=== PATIENT | male | born 1950 | race Caucasian/White ===

== ENCOUNTER 2017-06-17 10:30 | Inpatient (IN) | payer OTHER ==
[~2017-06-17] VITALS: Ht 175.3 cm; Wt 83.7 kg
[2017-06-17] VITALS (9 sets, daily range): BP systolic 144–211; BP diastolic 64–104; PULSE 48–78; RESP 14–17; TEMP 97.8–98.7; O2SAT 95–99
[~2017-06-17 10:30] MED LIST: LISI-363 PO; PRED-1 PO; PROB1TAB; ULTR50TA PO
[2017-06-17] MEDS ORDERED: LISI40TA PO (11:30)
[2017-06-17] MEDS ORDERED: FLUT50SP EACH NARE (11:30)
[2017-06-17] MEDS ORDERED: BYST10TA2 PO (11:30)
[2017-06-17] MEDS ORDERED: DOXY100C PO (11:30)
[2017-06-17] MEDS ORDERED: AMLO2.5T PO (11:30)
[2017-06-17] MEDS ORDERED: SPIR25TA PO (11:30)
[2017-06-17] MEDS ORDERED: SODIUM CHLOR 0.9% 1000 ML INJ 1,000 ML IV STA (11:34)
[2017-06-17] MEDS ORDERED: MECLIZINE HCL 25 MG TAB PO ONE (11:45)
[2017-06-17] MEDS ORDERED: ONDANSETRON HCL 4 MG/2 ML VIAL IV PUSH ONE (11:45)
--- NOTE | 2017-06-17 11:47 | PD ---
HPI Chief Complaint: Dizziness Time Seen by Provider: 11:23 Travel History International Travel<30 days: No Contact w/Intl Traveler<30days: No Traveled to known affect area: No History of Present Illness HPI This 67-year-old male is complaining of vertigo. He's been having vertigo for about 4 weeks but is getting progressively worse. The vertigo is aggravated by movement of the head by standing. She says the last couple of days has been quite severe. He's having a headache behind both of his eyes. He says he is unable to stand without falling over. He has a history of resting cancer and has had a radical prostatectomy. He says he has had urinary tract infections since then. He has had multiple surgeries including multiple orthopedic procedures as well as appendectomy and hernia. He was diagnosed with an ear infection and has been on doxycycline for 2 weeks. PFSH Past Medical History Cardiovascular Problems: Yes Hypertension: Yes Tetanus Vaccination: Unknown Influenza Vaccination: Yes Past Surgical History Genitourinary Surgery: Yes (Prostatectomy ) Social History Alcohol Use: No Tobacco Use: No Substance Use: No Allergies-Medications (Allergen,Severity, Reaction): Coded Allergies: Sulfa (Sulfonamide Antibiotics) (Unverified Allergy, Unknown, Rash, ) amoxicillin (Unverified Allergy, Unknown, Anaphylaxis, 06/17/17) aspirin (Unverified Allergy, Unknown, Rash, 06/17/17) ciprofloxacin (Unverified Allergy, Unknown, Anaphylaxis, 06/17/17) hydrocodone (Unverified Allergy, Unknown, Rash, 06/17/17) ibuprofen (Unverified Allergy, Unknown, Rash, 06/17/17) naproxen (Unverified Allergy, Unknown, Rash, 06/17/17) oxycodone (Unverified Allergy, Unknown, Rash, 06/17/17) penicillin G (Unverified Allergy, Unknown, Anaphylaxis, 06/17/17) sulfamethoxazole (Unverified Allergy, Unknown, Rash, 06/17/17) trimethoprim (Unverified Allergy, Unknown, Rash, 06/17/17) Reported Meds & Prescriptions Reported Meds & Active Scripts Active Reported Fluticasone Nasal [place] 50 Mcg/Act Naspr 50 Mcg EACH NARE BID 50 mcg/spray Amlodipine (Amlodipine Besylate) 2.5 Mg Tab 2.5 Mg PO BID Spironolactone 25 Mg Tab 25 Mg PO DAILY Doxycycline Hyclate 100 Mg Cap 100 Mg PO BID Lisinopril 40 Mg Tab 40 Mg PO BID Bystolic (Nebivolol) 10 Mg Tab 10 Mg PO HS Review of Systems General / Constitutional: No: Fever, Chills Eyes: No: Diploplia HENT: Positive: Headaches, Lightheadedness, No: Nosebleed Cardiovascular: No: Chest Pain or Discomfort, Palpitations Respiratory: No: Cough, Shortness of Breath Gastrointestinal: Positive: Nausea, Vomiting Genitourinary: No: Urgency, Frequency Musculoskeletal: No: Myalgias, Arthralgias Skin: No Rash Neurologic: Positive: Weakness, Dizziness Endocrine: No: Heat Intolerance Hematologic/Lymphatic: No: Easy Bruising Physical Exam Narrative GENERAL: Well-developed male. He is uncomfortable with his vertigo SKIN: Focused skin assessment warm/dry. HEAD: Atraumatic. Normocephalic. EYES: Pupils equal and round. No scleral icterus. No injection or drainage. ENT: No nasal bleeding or discharge. Mucous membranes pink and moist. TMs are negative NECK: Trachea midline. No JVD. CARDIOVASCULAR: Regular rate and rhythm. No murmur appreciated. RESPIRATORY: No accessory muscle use. Clear to auscultation. Breath sounds equal bilaterally. GASTROINTESTINAL: Abdomen soft, non-tender, nondistended. Hepatic and splenic margins not palpable. MUSCULOSKELETAL: No obvious deformities. No clubbing. No cyanosis. No edema. NEUROLOGICAL: Awake and alert. No obvious cranial nerve deficits. Motor grossly within normal limits. Normal speech. The patient is quite unsteady when asked to stand PSYCHIATRIC: Appropriate mood and affect; insight and judgment normal. Data Data Last Documented VS Vital Signs Date Time Temp Pulse Resp B/P (MAP) Pulse Ox O2 Delivery O2 Flow Rate FiO2 06/17/17 14:39 60 197/104 (135) 99 06/17/17 13:35 16 Room Air 06/17/17 10:58 97.8 Orders Orders Electrocardiogram (06/17/17 11:34) Complete Blood Count With Diff (06/17/17 11:34) Comprehensive Metabolic Panel (06/17/17 11:34) Prothrombin Time / Inr (Pt) (06/17/17 11:34) Act Partial Throm Time (Ptt) (06/17/17 11:34) Urinalysis - C+S If Indicated (06/17/17 11:34) Sodium Chlor 0.9% 1000 Ml Inj (Ns 1000 M (06/17/17 11:34) Ondansetron Inj (Zofran Inj) (06/17/17 11:45) Meclizine (Antivert) (06/17/17 11:45) Troponin I (06/17/17 11:52) Urine Culture (06/17/17 11:45) Mri Brain W&W/O Contrast (06/17/17 11:34) Gadodiamide Pf Inj (Omniscan Pf Inj) (06/17/17 13:20) Lisinopril (Prinivil) (06/17/17 14:00) Amlodipine (Norvasc) (06/17/17 14:00) Nebivolol (Bystolic) (06/17/17 14:00) Consult Neurosurgery (06/17/17 ) (Hub Use Only)Inp Phy Cons/Ref (06/17/17 ) Dexamethasone Inj (Decadron Inj) (06/17/17 16:00) Admit Order (Ed Use Only) (06/17/17 15:54) Labs Laboratory Tests Test 06/17/17 11:45 White Blood Count 11.7 TH/MM3 Red Blood Count 5.11 MIL/MM3 Hemoglobin 15.1 GM/DL Hematocrit 46.2 % Mean Corpuscular Volume 90.4 FL Mean Corpuscular Hemoglobin 29.6 PG Mean Corpuscular Hemoglobin Concent 32.7 % Red Cell Distribution Width 13.1 % Platelet Count 262 TH/MM3 Mean Platelet Volume 8.4 FL Neutrophils (%) (Auto) 75.6 % Lymphocytes (%) (Auto) 18.6 % Monocytes (%) (Auto) 4.9 % Eosinophils (%) (Auto) 0.7 % Basophils (%) (Auto) 0.2 % Neutrophils # (Auto) 8.8 TH/MM3 Lymphocytes # (Auto) 2.2 TH/MM3 Monocytes # (Auto) 0.6 TH/MM3 Eosinophils # (Auto) 0.1 TH/MM3 Basophils # (Auto) 0.0 TH/MM3 CBC Comment DIFF FINAL Differential Comment Prothrombin Time 10.5 SEC Prothromb Time International Ratio 1.0 RATIO Activated Partial Thromboplast Time 25.7 SEC Urine Collection Type CLEAN CATCH Urine Color YELLOW Urine Turbidity CLEAR Urine pH 6.0 Urine Specific [place] 1.026 Urine Protein 100 mg/dL Urine Glucose (UA) NEG mg/dL Urine Ketones NEG mg/dL Urine Occult Blood TRACE Urine Nitrite NEG Urine Bilirubin NEG Urine Leukocyte Esterase TRACE Urine RBC 0-3 /hpf Urine WBC 15-19 /hpf Urine Squamous Epithelial Cells 0-5 /hpf Microscopic Urinalysis Comment CULTURE INDICATED Urine Collection Time 11:45 Blood Urea Nitrogen 18 MG/DL Creatinine 1.10 MG/DL Random Glucose 188 MG/DL Total Protein 8.3 GM/DL Albumin 4.1 GM/DL Calcium Level 9.6 MG/DL Alkaline Phosphatase 81 U/L Aspartate Amino Transf (AST/SGOT) 19 U/L Alanine Aminotransferase (ALT/SGPT) 36 U/L Total Bilirubin 0.8 MG/DL Sodium Level 136 MEQ/L Potassium Level 4.3 MEQ/L Chloride Level 98 MEQ/L Carbon Dioxide Level 30.1 MEQ/L Anion Gap 8 MEQ/L Estimat Glomerular Filtration Rate 67 ML/MIN Troponin I 0.02 NG/ML [facility] Medical Decision Making Medical Screen Exam Complete: Yes Emergency Medical Condition: Yes Medical Record Reviewed: Yes Differential Diagnosis Differential includes peripheral vertigo,CVA Tumor Narrative Course MRI of the brain shows a mass measuring 1.6 x 3.3 x 2.4 cm which fills the fourth ventricles. Differential includes ependymoma versus choroid plexus papilloma/carcinoma. I have discussed the case with Dr. Hunter. He recommends Decadron 4 mg every 6, transfer to [place] unit for close observation and consult to him. The patient blood pressure has been elevated. I have not taken his medication at home this morning because of nausea but has been given it here. Diagnosis Primary Impression: Brain tumor Additional Impression: intractable vertigO Admitting Information Admitting Physician Requests: Admit Seven Garces MD Jun 17, 2017 11:47
[2017-06-17 11:58] LABS: BLOOD, URINE TRACE (NEG); GLUCOSE,URINE NEG (NEG); KETONE, URINE NEG (NEG); NITRITE,URINE NEG (NEG)
[2017-06-17 12:02] LABS: AUTOMATED NEUTROPHIL # 8.8 TH/MM3 (1.8-7.7); BASOPHIL % 0.2 % (0.0-2.0); EOSINOPHIL # 0.1 TH/MM3 (0-0.4); EOSINOPHIL % 0.7 % (0.0-4.0); HEMATOCRIT 46.2 % (39.0-51.0); HEMO FLAGS DIFF FINAL; LYMPH % 18.6 % (9.0-44.0); LYMPHOCYTE # 2.2 TH/MM3 (1.0-4.8); MEAN CELL VOLUME 90.4 FL (80.0-100.0); MEAN CORPUSCULAR HEMOGLOBIN 29.6 PG (27.0-34.0); MEAN CORPUSCULAR HGB CONC 32.7 % (32.0-36.0); MONO % 4.9 % (0.0-8.0); NEUT % 75.6 % (16.0-70.0); PLATELET COUNT 262 TH/MM3 (150-450); RED BLOOD COUNT 5.11 MIL/MM3 (4.50-5.90); RED CELL DISTRIBUTION WIDTH 13.1 % (11.6-17.2); WHITE BLOOD COUNT 11.7 TH/MM3 (4.0-11.0)
[2017-06-17 12:06] LABS: CHLORIDE 98 MEQ/L (98-107); POTASSIUM 4.3 MEQ/L (3.5-5.1); SODIUM (NA) 136 MEQ/L (136-145)
[2017-06-17 12:10] LABS: APTT (PATIENT) 25.7 SEC (24.3-30.1); PROTHROMBIN TIME - PATIENT 10.5 SEC (9.8-11.6)
[2017-06-17 12:13] LABS: ANION GAP 8 MEQ/L (5-15); BICARBONATE 30.1 MEQ/L (21.0-32.0); BLOOD UREA NITROGEN 18 MG/DL (7-18); METHOD OF COLLECTION CLEAN CATCH
[2017-06-17 12:14] LABS: RBC, URINE 0-3 /hpf (0-3); SQUAMOUS EPITHELIAL CELL URINE 0-5 /hpf (0-5); URINE COLOR YELLOW (YELLW/STRAW); WBC, URINE 15-19 /hpf (0-5)
[2017-06-17 12:16] LABS: ALT (GPT) 36 U/L (12-78); AST (GOT) 19 U/L (15-37); COMMENT (UR) CULTURE INDICATED; CULTURE IF INDICATED CULTURE INDICATED; GLOMERULAR FILTRATION RATE 67 ML/MIN (>89)
[2017-06-17 12:17] LABS: TOTAL BILIRUBIN ADULT 0.8 MG/DL (0.2-1.0)
[2017-06-17 12:19] LABS: ALKALINE PHOSPHATASE 81 U/L (45-117)
[2017-06-17] MEDS ORDERED: GADODIAMIDE PF 287 MG/ML 5 ML VIAL (for RAD MRI) IVCONTRAST ONE (13:20)
[2017-06-17] MEDS ORDERED: NEBIVOLOL 10 MG TAB PO ONE (14:00)
[2017-06-17] MEDS ORDERED: amLODIPine BESYLATE 5 MG TAB PO ONE (14:00)
[2017-06-17] MEDS ORDERED: LISINOPRIL 20 MG TAB PO SCH (14:00)
[2017-06-17] MEDS ORDERED: NEBIVOLOL 2.5 MG TAB PO ONE (14:00)
--- NOTE | 2017-06-17 15:18 | RADRPT ---
EXAM DATE/TIME: 06/17/2017 13:16 [facility] COMPARISON: No previous studies available for comparison. INDICATIONS : CVA. Vertigo. Patient states that he has an ear infection. CONTRAST: 15 cc Omniscan (gadodiamide) IV MEDICAL HISTORY : Hypertension. Carcinoma, prostate. SURGICAL HISTORY : Prostatectomy. Appendectomy. Umbilical hernia repair. Elbow surgery. ENCOUNTER: Initial ACUITY: 1 day PAIN SCORE: 5/10 LOCATION: head. TECHNIQUE: Multiplanar, multisequence MRI of the brain was performed both prior to and following the administrat ion of paramagnetic contrast. FINDINGS: Imaging through the posterior fossa demonstrates a heterogeneously enhancing mass which appears to be arising from the ependyma of the fourth ventricle. It is possible but less likely it arises from suzan mis. There is some evidence of hemorrhage within this on the heavily T2-weighted images. The lesion m easures approximately 2.5 x 2.5 x 1.7 cm. This extends forward and fills much of the fourth ventricle . The fourth ventricle is enlarged. There is no hydrocephalus. The primary differential consideration s would include ependymoma/subependymoma versus choroid plexus papilloma/carcinoma. Diffusion restricted is provided. No findings to indicate acute cortical infarction are present. No significant white matter signal abnormalities are identified. No significant extra-axial fluid col lections are seen. The visualized portion of sinus demonstrates a small amount of fluid within the frontal sinus and pos terior aspect of the right maxillary sinus but is otherwise clear. CONCLUSION: 1. There is a mass measuring 1.6 x 3.3 x 2.4 cm which fills the fourth ventricle. This is isointense on the T1-weighted images. There is heterogeneous enhancement. Primary differential considerations in clude ependymoma/subependymoma versus choroid plexus papilloma/carcinoma. Jak Linares MD on June 17, 2017 at 13:43 Board Certified Radiologist. This report was verified electronically.
[2017-06-17] MEDS ORDERED: LACTULOSE SYRUP 20 GM/30 ML CUP PO PRN (16:00)
[2017-06-17] MEDS ORDERED: MISCELLANEOUS NURSING INFORMATION XX SCH (16:00)
[2017-06-17] MEDS ORDERED: RESP: ALBUTEROL 2.5 MG/IPRATROPIUM 0.5 MG NEB (PRN) INH (16:00)
[2017-06-17] MEDS ORDERED: BISACODYL 10 MG SUPP RECTAL PRN (16:00)
[2017-06-17] MEDS ORDERED: SENNOSIDES 8.6 MG TAB PO PRN (16:00)
[2017-06-17] MEDS ORDERED: CHLORHEXIDINE GLUCONATE 2 % 1 PACK (2 CLOTHS) TOP PRN (16:00)
[2017-06-17] MEDS ORDERED: MAGNESIUM HYDROXIDE SUSP 30 ML CUP PO PRN (16:00)
[2017-06-17] MEDS ORDERED: DEXAMETHASONE SOD PHOS 4 MG/ML VIAL IV PUSH ONE ×2 (16:00→16:30)
[2017-06-17] MEDS ORDERED: SODIUM CHLORIDE 0.9% FLUSH 10 ML FLUSH IV FLUSH PRN (16:00)
[2017-06-17] MEDS ORDERED: ONDANSETRON HCL 4 MG/2 ML VIAL IV PUSH PRN (16:00)
[2017-06-17] MEDS ORDERED: hydrALAZINE HCL 20 MG/ML VIAL IV PUSH ONE ×2 (16:15→16:30)
[2017-06-17] MEDS ORDERED: hydrALAZINE HCL 20 MG/ML VIAL IV PUSH PRN (16:15)
[2017-06-17] MEDS ORDERED: PILL SPLITTER OTHER PRN (16:30)
--- NOTE | 2017-06-17 17:07 | RADRPT ---
EXAM DATE/TIME: 06/17/2017 17:00 [facility] COMPARISON: No previous studies available for comparison. INDICATIONS : Pre-op. Evaluate for pneumothorax, pneumonia, or other communicable disease. MEDICAL HISTORY : Hypertension. SURGICAL HISTORY : None. ENCOUNTER: Initial ACUITY: 1 day PAIN SCORE: 0/10 LOCATION: Bilateral chest FINDINGS: A single view of the chest demonstrates the lungs to be symmetrically aerated without evidence of mas s, infiltrate or effusion. There is mild atelectasis and/or scarring at the lung bases. The cardiomed iastinal contours are unremarkable. Osseous structures are intact. CONCLUSION: No acute disease. Hamilton Stacy MD on June 17, 2017 at 17:06 Board Certified Radiologist. This report was verified electronically.
[2017-06-17] MEDS: SODIUM CHLOR 0.9% 1000 ML INJ 1,000 ML IV SCH (17:08)
[2017-06-17] MEDS ORDERED: NITROGLYCERIN 2% OINT 1 GM PACKET TOPICAL PRN (18:30)
[2017-06-17] MEDS ORDERED: CLEVIDIPINE INJ 50 ML IV PRN ×2 (18:30→19:45)
[2017-06-17] MEDS: ACETAMINOPHEN 325 MG TAB PO PRN (18:30)
--- NOTE | 2017-06-17 18:34 | HHI.HP ---
[facility] Service Critical Care Medicine Primary Care Physician Yovany Oconnor, DO Admission Diagnosis INTRAVENTRICULAR MASS Diagnosis: (1) Allergic rhinitis Diagnosis: Principal (2) Cystitis Diagnosis: Principal (3) Hyperglycemia Diagnosis: Principal (4) Leukocytosis Diagnosis: Principal (5) Hypertension Diagnosis: Principal (6) Severe enlargement of fourth ventricle Diagnosis: Principal (7) Brain tumor Diagnosis: Principal Chief Complaint: Dizziness Travel History International Travel<30 Days: No Contact w/Intl Traveler <30 Da: No Traveled to Known Affected Are: No History of Present Illness 67-year-old male . Date of admission 06/17/2017. Past medical history includes hypertension. His presenting complaint the hospital was vertigo. He' s been having vertigo for about 4 weeks but is getting progressively worse. The vertigo is aggravated by movement of the head by standing.. Symptomatology occurring worse last couple of days has been quite severe. He's having a headache behind both of his eyes. He says he is unable to stand without falling over. He has a history of prostate cancer and has had a radical prostatectomy. He says he has had urinary tract infections since then. He has had multiple surgeries including multiple orthopedic procedures as well as appendectomy and hernia. He was diagnosed with an ear infection and has been on doxycycline for 2 weeks. 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 Dr. Hunter was contacted. Recommended dexamethasone 4 mg IV every 6 hours with surgical evaluation in AM. Patient remained quite hypertensive. Was started on a [place] proximal drip. Patient pointed diffuse headache [address] brain revealed small focal hemorrhagic component was left 9 x 15 mm. Review of Systems Constitutional: COMPLAINS OF: Fatigue, DENIES: Fever, Weight gain, Weight loss Endocrine: DENIES: Polydipsia, Polyuria Eyes: COMPLAINS OF: Blurred vision, Double Vision Ears, nose, mouth, throat: COMPLAINS OF: Vertigo, DENIES: Tinnitus, Hearing loss Respiratory: DENIES: Cough Cardiovascular: DENIES: Chest pain Gastrointestinal: DENIES: Abdominal pain, Constipation Genitourinary: DENIES: Nocturia Musculoskeletal: DENIES: Joint pain Integumentary: DENIES: Abnormal pigmentation Hematologic/lymphatic: DENIES: Bruising Immunologic/allergic: DENIES: Eczema Neurologic: COMPLAINS OF: Abnormal gait, Headache, Seizures, DENIES: Localized weakness Psychiatric: COMPLAINS OF: Anxiety, Confusion, DENIES: Depression Past Family Social History Allergies: Coded Allergies: Sulfa (Sulfonamide Antibiotics) (Unverified Allergy, Unknown, Rash, ) amoxicillin (Unverified Allergy, Unknown, Anaphylaxis, 06/17/17) aspirin (Unverified Allergy, Unknown, Rash, 06/17/17) ciprofloxacin (Unverified Allergy, Unknown, Anaphylaxis, 06/17/17) hydrocodone (Unverified Allergy, Unknown, Rash, 06/17/17) ibuprofen (Unverified Allergy, Unknown, Rash, 06/17/17) naproxen (Unverified Allergy, Unknown, Rash, 06/17/17) oxycodone (Unverified Allergy, Unknown, Rash, 06/17/17) penicillin G (Unverified Allergy, Unknown, Anaphylaxis, 06/17/17) sulfamethoxazole (Unverified Allergy, Unknown, Rash, 06/17/17) trimethoprim (Unverified Allergy, Unknown, Rash, 06/17/17) Past Medical History Hypertension Prostate cancer Allergic rhinitis Past Surgical History Prostatectomy Appendectomy Hernia repair Reported Medications Fluticasone Nasal [place] 50 Mcg/Act Naspr 50 Mcg EACH NARE BID 50 mcg/spray Amlodipine (Amlodipine Besylate) 2.5 Mg Tab 2.5 Mg PO BID Spironolactone 25 Mg Tab 25 Mg PO DAILY Doxycycline Hyclate 100 Mg Cap 100 Mg PO BID Lisinopril 40 Mg Tab 40 Mg PO BID Bystolic (Nebivolol) 10 Mg Tab 10 Mg PO HS Active Ordered Medications Reviewed in EMR Family History Adopted. Grandmother with cancer. Positive rheumatoid arthritis Social History Denies tobacco, alcohol or IV drug use Physical Exam Vital Signs Vital Signs Date Time Temp Pulse Resp B/P (MAP) Pulse Ox O2 Delivery O2 Flow Rate FiO2 06/17/17 16:00 48 14 211/101 (137) 98 Room Air 06/17/17 14:39 60 197/104 (135) 99 06/17/17 13:35 52 16 190/101 (130) 97 Room Air 06/17/17 10:58 97.8 53 17 207/104 (138) 95 Physical Exam GENERAL: 67-year-old male, critically ill currently resting in bed SKIN: Warm and dry. HEAD: Atraumatic. Normocephalic. EYES: Pupils equal and round about 2 mCi positive nystagmus.. No scleral icterus. No injection or drainage. ENT: No nasal bleeding or discharge. Mucous membranes pink and moist. NECK: Trachea midline. No JVD. CARDIOVASCULAR: bradyCardic, RR. S1, S2 no S4. RESPIRATORY: No accessory muscle use. Clear to auscultation. Breath sounds equal bilaterally. GASTROINTESTINAL: Abdomen soft, non-tender, nondistended. I [place] bowel sounds MUSCULOSKELETAL: Extremities without drift and peripheral edema. No obvious deformities. NEUROLOGICAL: Awake and alert. No obvious cranial nerve deficits. Motor grossly within normal limits. Five out of 5 muscle strength in the arms and legs. Normal speech. Laboratory Laboratory Tests Test 06/17/17 11:45 White Blood Count 11.7 Red Blood Count 5.11 Hemoglobin 15.1 Hematocrit 46.2 Mean Corpuscular Volume 90.4 Mean Corpuscular Hemoglobin 29.6 Mean Corpuscular Hemoglobin Concent 32.7 Red Cell Distribution Width 13.1 Platelet Count 262 Mean Platelet Volume 8.4 Neutrophils (%) (Auto) 75.6 Lymphocytes (%) (Auto) 18.6 Monocytes (%) (Auto) 4.9 Eosinophils (%) (Auto) 0.7 Basophils (%) (Auto) 0.2 Neutrophils # (Auto) 8.8 Lymphocytes # (Auto) 2.2 Monocytes # (Auto) 0.6 Eosinophils # (Auto) 0.1 Basophils # (Auto) 0.0 CBC Comment DIFF FINAL Differential Comment Prothrombin Time 10.5 Prothromb Time International Ratio 1.0 Activated Partial Thromboplast Time 25.7 Urine Collection Type CLEAN CATCH Urine Color YELLOW Urine Turbidity CLEAR Urine pH 6.0 Urine Specific [place] 1.026 Urine Protein 100 Urine Glucose (UA) NEG Urine Ketones NEG Urine Occult Blood TRACE Urine Nitrite NEG Urine Bilirubin NEG Urine Leukocyte Esterase TRACE Urine RBC 0-3 Urine WBC 15-19 Urine Squamous Epithelial Cells 0-5 Microscopic Urinalysis Comment CULTURE INDICATED Urine Collection Time 11:45 Blood Urea Nitrogen 18 Creatinine 1.10 Random Glucose 188 Total Protein 8.3 Albumin 4.1 Calcium Level 9.6 Alkaline Phosphatase 81 Aspartate Amino Transf (AST/SGOT) 19 Alanine Aminotransferase (ALT/SGPT) 36 Total Bilirubin 0.8 Sodium Level 136 Potassium Level 4.3 Chloride Level 98 Carbon Dioxide Level 30.1 Anion Gap 8 Estimat Glomerular Filtration Rate 67 Troponin I 0.02 Date/Time Source Procedure Growth Status 06/17/17 11:45 Urine Clean Catch Urine Culture Pending Received Result Diagram: 06/17/17 1145 06/17/17 1145 Imaging Last Impressions Brain MRI 06/17/17 1134 Signed Impressions: Service Date/Time: Saturday, June 17, 2017 13:16 - CONCLUSION: 1. There is a mass measuring 1.6 x 3.3 x 2.4 cm which fills the fourth ventricle. This is isointense on the T1-weighted images. There is heterogeneous enhancement. Primary differential considerations include ependymoma/subependymoma versus choroid plexus papilloma/carcinoma. Jak Linares MD Chest X-Ray 06/17/17 0000 Signed Impressions: Service Date/Time: Saturday, June 17, 2017 17:00 - CONCLUSION: No acute disease. MD Esteban Schafer VTE Risk Assessment Caprini VTE Risk Assessment: Mod/High Risk (score >= 2) Caprini Risk Assessment Model Point Value = 1 Point Value = 2 Point Value = 3 Point Value = 5 Age 41-60 Minor surgery BMI > 25 kg/m2 Swollen legs Varicose veins or History of unexplained or recurrent spontaneous Oral contraceptives or hormone replacement Sepsis (< 1 month) Serious lung disease, including pneumonia (< 1 month) Abnormal pulmonary function Acute myocardial infarction Congestive heart failure (< 1 month) History of inflammatory bowel disease Medical patient at bed rest Age 61-74 Arthroscopic surgery Major open surgery (> 45 min) Laparoscopic surgery (> 45 min) Malignancy Confined to bed (> 72 hours) Immobilizing plaster cast Central venous access Age >= 75 History of VTE Family history of VTE Factor V Leiden Prothrombin [id number] Lupus anticoagulant Anticardiolipin antibodies Elevated serum homocysteine Heparin-induced thrombocytopenia Other congenital or acquired thrombophilia Stroke (< 1 month) Elective arthroplasty Hip, pelvis, or leg fracture Acute spinal cord injury (< 1 month) Prophylaxis Regimen Total Risk Factor Score Risk Level Prophylaxis Regimen 0-1 Low Early ambulation 2 Moderate Order ONE of the following: *Sequential Compression Device (SCD) *Heparin 5000 units SQ BID 3-4 Higher Order ONE of the following medications: *Heparin 5000 units SQ TID *Enoxaparin/Lovenox 40 mg SQ daily (WT < 150 kg, CrCl > 30 mL/min) *Enoxaparin/Lovenox 30 mg SQ daily (WT < 150 kg, CrCl > 10-29 mL/min) *Enoxaparin/Lovenox 30 mg SQ BID (WT < 150 kg, CrCl > 30 mL/min) AND/OR *Sequential Compression Device (SCD) 5 or more Highest Order ONE of the following medications: *Heparin 5000 units SQ TID (Preferred with Epidurals) *Enoxaparin/Lovenox 40 mg SQ daily (WT < 150 kg, CrCl > 30 mL/min) *Enoxaparin/Lovenox 30 mg SQ daily (WT < 150 kg, CrCl > 10-29 mL/min) *Enoxaparin/Lovenox 30 mg SQ BID (WT < 150 kg, CrCl > 30 mL/min) AND *Sequential Compression Device (SCD) Assessment and Plan Assessment and Plan Neuro/Psych: Fourth ventricle enlargement/mass Headaches NOS MRI brain 06/17 revealed a 1.6 3.3 x 2.4 cm mass arising from the epidemic. Differential includes ependymoma, choroid plexus papilloma versus other Dr. Hunter/neurosurgery evaluation Dexamethasone 4 mg IV every 6 hours scheduled Plan for intervention in a.m. Acetaminophen 650 mg every 6 hours when necessary pain 1 through 2/fever greater than 100 Hydromorphone 0.2-0.5 mg every 4 hours when necessary pain 3-10. Patient states he has taken this before. Noted allergies to hydrocodone and oxycodone. CT brain revealed 9 x 15 mm focal hemorrhagic component.. See below for blood pressure modification. Discussed with Dr. Hunter. No new plans overnight unless decompensation. CV: Hypertension Home medications include nebivolol 10 mg a night, amlodipine 2.5 mill grams twice a day and lisinopril 40 mg by mouth twice a day. These been continued with holding parameters for nebivolol for heart rate Continued spironolactone 25 mg by mouth twice a day Clevidipine drip to keep systolic blood pressure less than 140 As needed Nitropaste/hydralazine to keep systolic blood pressure was 140 Resp: Nasal cannula to maintain saturations greater than equal to 92% Incentive spirometry while awake As needed albuterol/ipratropium aerosols every 4 hours when necessary dyspnea Chest x-ray 06/17 revealed no acute findings GI: Nothing by mouth after midnight Famotidine for GI prophylaxis Docusate sodium/Senokot 1 tablet twice a day for bowel regimen : Cystitis History of prostate cancer status post prostatectomy Flores catheter not indicated currently Endo: Hyperglycemia Sliding-scale insulin to maintain euglycemia Renal: Creatinine currently within normal limits Monitor urine output Accurate I's and O's Currently normal saline at 84 cc an hour Heme: Leukocytosis Monitor CBC daily. Follow trends. Follow-up on coags ID: Uncomplicated cystitis We'll treat with 3 days aztreonam 1 g IV every 12 hours. Cultures pending Discontinue doxycycline FEN: Replace electrolytes as clinically indicated MSK: PT OT evaluate and treat Access - Utilize peripheral IV. Central line if indicated Prophylaxis - GI - famotidine - DVT - SCD/holding pharmacological prophylaxis for likely surgical intervention within 24 hours Critical Care: Level III admission Code Status Full code Discussed Condition With Patient. . Care plan discussed and all questions answered. Problem Qualifiers (1) Allergic rhinitis: Qualified Codes: J30.9 - Allergic rhinitis, unspecified (2) Leukocytosis: Qualified Codes: D72.829 - Elevated white blood cell count, unspecified (3) Hypertension: Qualified Codes: I10 - Essential (primary) hypertension Nilo Ochoa MD Jun 17, 2017 18:34
[2017-06-17] MEDS ORDERED: HYDROmorphone HCL PF 0.5 MG/0.5 ML SYRINGE IV PUSH PRN ×2 (18:45)
[2017-06-17] MEDS ORDERED: DEXTROSE 50% IN WATER 50 ML VIAL(D50) IV PRN (19:00)
[2017-06-17] MEDS ORDERED: GLUCAGON 1 MG/ML VIAL OTHER PRN ×2 (19:00)
--- NOTE | 2017-06-17 19:41 | RADRPT ---
EXAM DATE/TIME: 06/17/2017 19:19 [facility] COMPARISON: MRI BRAIN W & W/O CONTRAST, June 17, 2017, 13:16. INDICATIONS : Cephalgia for two days, dizziness for three weeks. RADIATION DOSE: 57.45 CTDIvol (mGy) MEDICAL HISTORY : Hypertension. Carcinoma, prostate. SURGICAL HISTORY : Prostatectomy. ENCOUNTER: Initial ACUITY: 2 days PAIN SCALE: 10/10 LOCATION: Bilateral head TECHNIQUE: Multiple contiguous axial images were obtained of the head. Using automated exposure control and adj ustment of the mA and/or kV according to patient size, radiation dose was kept as low as reasonably a chievable to obtain optimal diagnostic quality images. DICOM format image data is available electro nically for review and comparison. FINDINGS: As seen on the MRI of the brain, a mass of the fourth ventricle is again noted. By CT, it is estimate d at approximately 18 x 18 mm in greatest transaxial dimension and not significantly changed from the MRI. There is a focal hemorrhagic component towards the left and measures approximately 9 x 15 mm in size and although better demonstrated on the CT does appear to be present on the MRI. The mass is ce ntrally fills the fourth ventricle posterior to the ashley and with mild mass effect on the cerebellar vermis and the posterior margin of the brainstem. No midline shift. There remains no ventriculomegaly . No evidence of an acute ischemic event. No midline shift. CONCLUSION: Mass of the fourth ventricle again noted as described above and a small hemorrhagic component is appa rent. No significant change from the MRI done previously today including no midline shift or ventricu lomegaly. Joe Smith MD on June 17, 2017 at 19:35 Board Certified Radiologist. This report was verified electronically.
[2017-06-17] MEDS: HYDROmorphone HCL PF 1 MG/ML VIAL IV PRN ×2 (19:48→20:39)
[2017-06-17] MEDS: NEBIVOLOL 10 MG TAB PO SCH (21:00)
[2017-06-17] MEDS: FAMOTIDINE 20 MG TAB PO SCH (21:00)
[2017-06-17] MEDS: INSULIN NovoLIN REGULAR SUPPLEMENTAL SCALE SQ SCH (21:00)
[2017-06-17] MEDS ORDERED: INSULIN ASPART SUPPLEMENTAL SCALE SQ SCH (21:00)
[2017-06-17] MEDS: FLUTICASONE PROPIONATE 50 MCG/ACT 16 GM NASAL SPRAY EACH NARE SCH (21:00)
[2017-06-17] MEDS: AZTREONAM INJ 1,000 MG in SODIUM CHLORIDE 0.9% INJ 100 ML IV SCH (23:44)
[2017-06-17] MEDS: SODIUM CHLORIDE 0.9% FLUSH 10 ML FLUSH IV FLUSH SCH (23:46)
[2017-06-17] MEDS: amLODIPine BESYLATE 5 MG TAB PO SCH (23:47)
[2017-06-17] MEDS: DOCUSATE SODIUM 50 MG/SENNA 8.6 MG TAB PO SCH (23:47)
[2017-06-17] MEDS: LISINOPRIL 20 MG TAB PO SCH (23:49)
[2017-06-17] MEDS: DEXAMETHASONE SOD PHOS 4 MG/ML VIAL IV PUSH SCH (23:52)
[2017-06-18] VITALS (17 sets, daily range): BP systolic 119–158; BP diastolic 79–87; PULSE 52–78; RESP 13–30; TEMP 97.7–98.7; O2SAT 95–99
[2017-06-18] MEDS: SODIUM CHLOR 0.9% 1000 ML INJ 1,000 ML IV SCH ×2 (03:46→14:12)
[2017-06-18] MEDS: CHLORHEXIDINE GLUCONATE 2 % 1 PACK (2 CLOTHS) TOP SCH (04:00)
[2017-06-18] MEDS: HYDROmorphone HCL PF 1 MG/ML VIAL IV PRN ×4 (04:37→15:53)
[2017-06-18] MEDS: DEXAMETHASONE SOD PHOS 4 MG/ML VIAL IV PUSH SCH ×4 (05:13→20:50)
[2017-06-18 05:49] LABS: AUTOMATED NEUTROPHIL # 8.8 TH/MM3 (1.8-7.7); BASOPHIL % 0.1 % (0.0-2.0); HEMO FLAGS DIFF FINAL; LYMPH % 12.8 % (9.0-44.0); LYMPHOCYTE # 1.3 TH/MM3 (1.0-4.8); MEAN CELL VOLUME 91.4 FL (80.0-100.0); MEAN CORPUSCULAR HEMOGLOBIN 30.6 PG (27.0-34.0); MEAN CORPUSCULAR HGB CONC 33.5 % (32.0-36.0); MONO % 2.8 % (0.0-8.0); NEUT % 84.3 % (16.0-70.0); PLATELET COUNT 228 TH/MM3 (150-450); RED BLOOD COUNT 4.59 MIL/MM3 (4.50-5.90); RED CELL DISTRIBUTION WIDTH 13.8 % (11.6-17.2); WHITE BLOOD COUNT 10.4 TH/MM3 (4.0-11.0)
[2017-06-18 06:44] LABS: BLOOD UREA NITROGEN 17 MG/DL (7-18)
[2017-06-18 07:22] LABS: ALKALINE PHOSPHATASE 77 U/L (45-117); ALT (GPT) 34 U/L (12-78); ANION GAP 9 MEQ/L (5-15); AST (GOT) 19 U/L (15-37); BICARBONATE 25.4 MEQ/L (21.0-32.0); CHLORIDE 100 MEQ/L (98-107); GLOMERULAR FILTRATION RATE 84 ML/MIN (>89); POTASSIUM 4.2 MEQ/L (3.5-5.1); SODIUM (NA) 134 MEQ/L (136-145); TOTAL BILIRUBIN ADULT 0.6 MG/DL (0.2-1.0)
[2017-06-18] MEDS: INSULIN NovoLIN REGULAR SUPPLEMENTAL SCALE SQ SCH ×4 (08:00→20:52)
[2017-06-18] MEDS: DOCUSATE SODIUM 50 MG/SENNA 8.6 MG TAB PO SCH ×2 (08:47→20:50)
[2017-06-18] MEDS: amLODIPine BESYLATE 5 MG TAB PO SCH ×2 (08:47→20:52)
[2017-06-18] MEDS: FAMOTIDINE 20 MG TAB PO SCH ×2 (08:47→20:50)
[2017-06-18] MEDS: SPIRONOLACTONE 25 MG TAB PO SCH (08:47)
[2017-06-18] MEDS: AZTREONAM INJ 1,000 MG in SODIUM CHLORIDE 0.9% INJ 100 ML IV SCH ×2 (08:47→20:49)
[2017-06-18] MEDS: LISINOPRIL 20 MG TAB PO SCH ×2 (08:48→20:50)
[2017-06-18] MEDS: FLUTICASONE PROPIONATE 50 MCG/ACT 16 GM NASAL SPRAY EACH NARE SCH ×2 (08:49→20:51)
[2017-06-18] MEDS: SODIUM CHLORIDE 0.9% FLUSH 10 ML FLUSH IV FLUSH SCH ×2 (08:49→20:51)
--- NOTE | 2017-06-18 12:42 | HHI.CCPN ---
Subjective Remarks/Hospital Course 06/17: 67-year-old male . Date of admission 06/17/2017. Past medical history includes hypertension. His presenting complaint the hospital was vertigo. He' s been having vertigo for about 4 weeks but is getting progressively worse. The vertigo is aggravated by movement of the head by standing.. Symptomatology occurring worse last couple of days has been quite severe. He's having a headache behind both of his eyes. He says he is unable to stand without falling over. He has a history of prostate cancer and has had a radical prostatectomy. He says he has had urinary tract infections since then. He has had multiple surgeries including multiple orthopedic procedures as well as appendectomy and hernia. He was diagnosed with an ear infection and has been on doxycycline for 2 weeks. 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 Dr. Hunter was contacted. Recommended dexamethasone 4 mg IV every 6 hours with surgical evaluation in AM. Patient remained quite hypertensive. Was started on a [place] proximal drip. Patient pointed diffuse headache [address] brain revealed small focal hemorrhagic component was left 9 x 15 mm. 06/18: Sitting up in bed. Feels much better today. Still has some headache. Denies any nausea currently. No dizziness if he stays still. Wishes to eat. Blood pressure better controlled. Objective Vital Signs Date Time Temp Pulse Resp B/P (MAP) Pulse Ox O2 Delivery O2 Flow Rate FiO2 06/18/17 10:35 98 21 06/18/17 10:00 52 06/18/17 08:00 98.6 25 158/84 (108) 06/18/17 07:00 Room Air Intake and Output 06/18/17 06/18/17 06/19/17 08:00 16:00 00:00 Intake Total 670 ml 100 ml Output Total 600 ml Balance 70 ml 100 ml Result Diagram: 06/18/17 0434 06/18/17 0434 Imaging Last Impressions Brain MRI 06/17/17 1134 Signed Impressions: Service Date/Time: Saturday, June 17, 2017 13:16 - CONCLUSION: 1. There is a mass measuring 1.6 x 3.3 x 2.4 cm which fills the fourth ventricle. This is isointense on the T1-weighted images. There is heterogeneous enhancement. Primary differential considerations include ependymoma/subependymoma versus choroid plexus papilloma/carcinoma. Jak Linares MD Chest X-Ray 06/17/17 0000 Signed Impressions: Service Date/Time: Saturday, June 17, 2017 17:00 - CONCLUSION: No acute disease. Hamilton Stacy MD Objective Remarks GENERAL: 67-year-old male, critically ill currently resting in bed SKIN: Warm and dry. HEAD: Atraumatic. Normocephalic. EYES: Pupils equal and round about 2 mm, positive nystagmus.. No scleral icterus. No injection or drainage. ENT: No nasal bleeding or discharge. Mucous membranes pink and moist. NECK: Trachea midline. No JVD. CARDIOVASCULAR: bradyCardic, RR. S1, S2 no S4. RESPIRATORY: No accessory muscle use. Clear to auscultation. Breath sounds equal bilaterally. GASTROINTESTINAL: Abdomen soft, non-tender, nondistended. I [place] bowel sounds MUSCULOSKELETAL: Extremities without drift and peripheral edema. No obvious deformities. NEUROLOGICAL: Awake and alert. No obvious cranial nerve deficits. Motor grossly within normal limits. Five out of 5 muscle strength in the arms and legs. Normal speech. Urinary Catheter: Yes Assessment to: Continue Flores insert reason: Measure Accurate Output Vascular Central Line Catheter: Yes Date of Insertion: Jun 18, 2017 Line: Central Venous Catheter Side: Right Location: Internal, Jugular A/P Assessment and Plan Neuro/Psych: Fourth ventricle enlargement/mass Headaches NOS MRI brain 06/17 revealed a 1.6 3.3 x 2.4 cm mass arising from the epidemic. Differential includes ependymoma, choroid plexus papilloma versus other Dr. Hunter/neurosurgery evaluation. Dr. Hunter not planning immediate surgical intervention in view of question of blood around the lesion. Dexamethasone 4 mg IV every 6 hours scheduled. Acetaminophen 650 mg every 6 hours when necessary pain 1 through 2/fever greater than 100 Hydromorphone 0.2-0.5 mg every 4 hours when necessary pain 3-10. Patient states he has taken this before. Noted allergies to hydrocodone and oxycodone. CT brain revealed 9 x 15 mm focal hemorrhagic component.. See below for blood pressure modification. Discussed with Dr. Hunter. No new plans overnight unless decompensation. CV: Hypertension Home medications include nebivolol 10 mg a night, increase amlodipine from 2.5mg to 5 mg twice a day , continue lisinopril 40 mg by mouth twice a day. These been continued with holding parameters for nebivolol for heart rate Continued spironolactone 25 mg by mouth twice a day Off Clevidipine drip. Clonidine when necessary. As needed Nitropaste/hydralazine to keep systolic blood pressure was 140 Resp: Nasal cannula to maintain saturations greater than equal to 92% Incentive spirometry while awake As needed albuterol/ipratropium aerosols every 4 hours when necessary dyspnea Chest x-ray 06/17 revealed no acute findings GI: Advance by mouth for K with neurosurgery. Famotidine for GI prophylaxis Docusate sodium/Senokot 1 tablet twice a day for bowel regimen : Cystitis History of prostate cancer status post prostatectomy Flores catheter not indicated currently Endo: Hyperglycemia Sliding-scale insulin to maintain euglycemia Renal: Creatinine currently within normal limits Monitor urine output Accurate I's and O's Currently normal saline at 84 cc an hour Heme: Leukocytosis Monitor CBC daily. Follow trends. Follow-up on coags ID: Uncomplicated cystitis We'll treat with 3 days aztreonam 1 g IV every 12 hours. Cultures pending Discontinue doxycycline FEN: Replace electrolytes as clinically indicated MSK: PT OT evaluate and treat Access - Utilize peripheral IV. Central line if indicated Prophylaxis - GI - famotidine - DVT - SCD/holding pharmacological prophylaxis for likely surgical intervention within [address] Hunter subsequently. He is planning embolization of vascular supply of the tumor followed by surgery on 06/20. He also is to get a CT chest abdomen pelvis to evaluate for any metastatic disease/ primary. Gage Ho MD Jun 18, 2017 12:42
[2017-06-18] MEDS: cloNIDine HCL 0.1 MG TAB PO PRN (13:22)
--- NOTE | 2017-06-18 14:13 | PD.CONS ---
[facility] Service neurosurg Consult Requested By Gypsum KEYSHAWN Quesada Reason for Consult cerebellar mass Primary Care Physician Yovany Oconnor, History of Present Illness Chief Complaint: Dizziness and severe headaches History of Present Illness This is a 67-year-old male with history of arterial hypertension and prostate Ca. He present to the [facility] ER with vertigo. He's been having vertigo for about 4 weeks but is getting progressively worse. The vertigo is aggravated by movement of the head by standing.. It has been worse last couple of days, it has been quite severe. He's having a headache behind both of his eyes. He says he is unable to stand without falling over. He has a history of prostate cancer and has had a radical prostatectomy. He says he has had recurrent urinary tract infections. He has had multiple surgeries including multiple orthopedic procedures as well as appendectomy and hernia. He was diagnosed with an ear infection and has been treated with doxycycline for 2 weeks. MRI of the brain revealed a 1.6 x 3.3 x 2.4 cm mass arising from the fourth ventricle with ventricular enlargement.He was placed dexamethasone 4 mg IV every 6 hours He has been hypertensive. Was started on a Otego drip. He reports diffuse headaches [address] brain revealed small focal hemorrhagic component was left 9 x 15 mm. Neurosurgical consultation was requested Review of Systems Constitutional: COMPLAINS OF: Fatigue, DENIES: Fever, Weight gain, Weight loss Endocrine: DENIES: Polydipsia, Polyuria Eyes: COMPLAINS OF: Blurred vision, Double Vision Ears, nose, mouth, throat: COMPLAINS OF: Vertigo, DENIES: Tinnitus, Hearing loss Respiratory: DENIES: Cough Cardiovascular: DENIES: Chest pain Gastrointestinal: DENIES: Abdominal pain, Constipation Genitourinary: DENIES: Nocturia Musculoskeletal: DENIES: Joint pain Integumentary: DENIES: Abnormal pigmentation Hematologic/lymphatic: DENIES: Bruising Immunologic/allergic: DENIES: Eczema Neurologic: COMPLAINS OF: Abnormal gait, Headache, Seizures, DENIES: Localized weakness Psychiatric: COMPLAINS OF: Anxiety, Confusion, DENIES: Depression Past Family Social History Allergies: Coded Allergies: Sulfa (Sulfonamide Antibiotics) (Unverified Allergy, Unknown, Rash, ) amoxicillin (Unverified Allergy, Unknown, Anaphylaxis, 06/17/17) aspirin (Unverified Allergy, Unknown, Rash, 06/17/17) ciprofloxacin (Unverified Allergy, Unknown, Anaphylaxis, 06/17/17) hydrocodone (Unverified Allergy, Unknown, Rash, 06/17/17) ibuprofen (Unverified Allergy, Unknown, Rash, 06/17/17) naproxen (Unverified Allergy, Unknown, Rash, 06/17/17) oxycodone (Unverified Allergy, Unknown, Rash, 06/17/17) penicillin G (Unverified Allergy, Unknown, Anaphylaxis, 06/17/17) sulfamethoxazole (Unverified Allergy, Unknown, Rash, 06/17/17) trimethoprim (Unverified Allergy, Unknown, Rash, 06/17/17) Past Medical History Hypertension Prostate cancer Allergic rhinitis Past Surgical History Prostatectomy Appendectomy Hernia repair Reported Medications Fluticasone Nasal [place] 50 Mcg/Act Naspr 50 Mcg EACH NARE BID 50 mcg/spray Amlodipine (Amlodipine Besylate) 2.5 Mg Tab 2.5 Mg PO BID Spironolactone 25 Mg Tab 25 Mg PO DAILY Doxycycline Hyclate 100 Mg Cap 100 Mg PO BID Lisinopril 40 Mg Tab 40 Mg PO BID Bystolic (Nebivolol) 10 Mg Tab 10 Mg PO HS Active Ordered Medications Current Medications Sodium Chloride 1,000 ml @ 500 mls/hr Q2H STAT IV Last administered on 11:52; Start 06/17/17 at 11:34; Stop 06/17/17 at 13:33; Status DC Ondansetron HCl (Zofran Inj) 4 mg ONCE ONCE IV PUSH Last administered on 11:52; Start 06/17/17 at 11:45; Stop 06/17/17 at 11:46; Status DC Meclizine HCl (Antivert) 25 mg ONCE ONCE PO Last administered on 06/17/17 11: 52; Start 06/17/17 at 11:45; Stop 06/17/17 at 11:46; Status DC Gadodiamide (Omniscan Pf Inj) 15 ml STK-MED ONCE IVCONTRAST Last administered on 06/17/17 13:20; Start 06/17/17 at 13:20; Stop 06/17/17 at 13:25; Status DC Lisinopril (Prinivil) 40 mg ONCE PO Last administered on 06/17/17 15:20; Start 06/17/17 at 14:00; Stop 06/17/17 at 19:34; Status DC Nebivolol (Bystolic) 10 mg ONCE ONCE PO ; Start 06/17/17 at 14:00; Stop at 14:01; Status Cancel Amlodipine Besylate (Norvasc) 2.5 mg ONCE ONCE PO Last administered on 15:20; Start 06/17/17 at 14:00; Stop 06/17/17 at 14:01; Status DC Nebivolol (Bystolic) 10 mg ONCE ONCE PO ; Start 06/17/17 at 14:00; Stop at 16:01; Status DC Dexamethasone Sodium Phosphate (Decadron Inj) 4 mg ONCE ONCE IV PUSH Last administered on 06/17/17 16:17; Start 06/17/17 at 16:00; Stop 06/17/17 at 16:01 ; Status DC Sodium Chloride 1,000 ml @ 84 mls/hr [id number] IV Last administered on 17:08; Start 06/17/17 at 15:51 Sodium Chloride (NS Flush) 2 ml UNSCH PRN IV FLUSH FLUSH AFTER USING IV ACCESS ; Start 06/17/17 at 16:00 Sodium Chloride (NS Flush) 2 ml BID IV FLUSH Last administered on 06/18/17 08: 49; Start 06/17/17 at 21:00 Acetaminophen (Tylenol) 650 mg Q6H PRN PO PAIN 1-2 AND/OR FEVER >100F Last administered on 06/17/17 18:30; Start 06/17/17 at 16:00 Famotidine (Pepcid) 20 mg Q12HR PO Last administered on 06/18/17 08:47; Start 06/17/17 at 21:00 Ondansetron HCl (Zofran Inj) 4 mg Q6H PRN IV PUSH NAUSEA OR VOMITING Last administered on 06/18/17 06:52; Start 06/17/17 at 16:00 Albuterol/ Ipratropium (Duoneb Neb) 1 ampule Q4HR NEB PRN INH WHEEZING; Start 06/17/17 at 16:00 Miscellaneous Information 1 [id number] XX ; Start 06/17/17 at 16:00 Chlorhexidine Gluconate (Chlorhexidine 2% Cloth) 3 pack Taper DAILY@04 TOP ; Start 06/18/17 at 04:00; Stop 06/14/18 at 03:59 Chlorhexidine Gluconate (Chlorhexidine 2% Cloth) 3 pack UNSCH PRN TOP HYGIENIC CARE; Start 06/17/17 at 16:00 Senna/Docusate Sodium (Shakira-Colace) 1 tab BID PO Last administered on 08:47; Start 06/17/17 at 21:00 Magnesium Hydroxide (Milk Of Magnesia Liq) 30 ml Q12H PRN PO MILD - MODERATE CONSTIPATION; Start 06/17/17 at 16:00 Sennosides (Senokot) 17.2 mg Q12H PRN PO MODERATE - SEVERE CONSTIPATION; Start 06/17/17 at 16:00 Bisacodyl (Dulcolax Supp) 10 mg DAILY PRN RECTAL SEVERE CONSITIPATION; Start at 16:00 Lactulose (Lactulose Liq) 30 ml DAILY PRN PO SEVERE CONSITIPATION; Start at 16:00 Amlodipine Besylate (Norvasc) 2.5 mg BID PO Last administered on 06/18/17 08: 47; Start 06/17/17 at 21:00; Stop 06/18/17 at 09:17; Status DC Fluticasone Propionate (Flonase Cortes Spr) 1 spray BID EACH NARE Last administered on 06/18/17 08:49; Start 06/17/17 at 21:00 Nebivolol (Bystolic) 10 mg HS PO ; Start 06/17/17 at 21:00 Spironolactone (Aldactone) 25 mg DAILY PO Last administered on 06/18/17 08:47 ; Start 06/18/17 at 09:00 Hydralazine HCl (Apresoline Inj) 20 mg ONCE ONCE IV PUSH Last administered on 06/17/17 18:07; Start 06/17/17 at 16:30; Stop 06/17/17 at 16:31; Status DC Dexamethasone Sodium Phosphate (Decadron Inj) 4 mg ONCE ONCE IV PUSH ; Start at 16:30; Stop 06/17/17 at 16:31; Status DC Dexamethasone Sodium Phosphate (Decadron Inj) 4 mg Q6H IV PUSH Last administered on 06/18/17 10:16; Start 06/17/17 at 22:00 Hydralazine HCl (Apresoline Inj) 10 mg ONCE ONCE IV PUSH Last administered on 06/17/17t 16:17; Start 06/17/17 at 16:15; Stop 06/17/17 at 16:16; Status DC Hydralazine HCl (Apresoline Inj) 20 mg Q4H PRN IV PUSH SBP greater than 170mm Hg; Start 06/17/17 at 16:15; Stop 06/17/17 at 18:38; Status DC Miscellaneous (Pill Splitter) 1 ea UNSCH PRN OTHER SEE LABEL COMMENTS; Start at 16:30 Hydralazine HCl (Apresoline Inj) 10 mg Q1HR PRN IV PUSH SBP greater than 140mm Hg; Start 06/17/17 at 18:45 Nitroglycerin (Nitroglycerin 2% Oint) 2 inch Q6HR PRN TOPICAL SBP>140, DBP>90; Start 06/17/17 at 18:30 Clevidipine 50 ml @ 2 mls/hr TITRATE PRN IV Blood Pressure Management; Start at 18:30; Stop 06/17/17 at 19:43; Status DC Hydromorphone HCl (Dilaudid Pf Inj) 0.2 mg Q4H PRN IV PUSH pain 3-7; Start 09/21 at 18:45; Stop 06/17/17 at 19:37; Status DC Hydromorphone HCl (Dilaudid Pf Inj) 0.5 mg Q4H PRN IV PUSH pain 8-10; Start 09/21 at 18:45; Stop 06/17/17 at 19:38; Status DC Dextrose (D50w (Vial) Inj) 50 ml UNSCH PRN IV HYPOGLYCEMIA-SEE COMMENTS; Start 06/17/17 at 19:00; Stop 06/17/17 at 19:29; Status DC Glucagon (Glucagon Inj) 1 mg UNSCH PRN OTHER HYPOGLYCEMIA-SEE COMMENTS; Start 06/17/17 at 19:00; Status UNV Insulin Aspart (NovoLOG SUPPLEMENTAL SCALE) 1 ACHS SLIDING SCALE SQ ; Start 09/21 at 21:00; Status UNV Lisinopril (Prinivil) 40 mg BID PO Last administered on 06/18/17 08:48; Start 06/17/17 at 21:00 Aztreonam 1000 mg/ Sodium Chloride 100 ml @ 200 mls/hr Q12H IV Last administered on 06/18/17 08:47; Start 06/17/17 at 20:00; Stop 06/20/17 at 19:59 Dextrose (D50w (Vial) Inj) 50 ml UNSCH PRN IV HYPOGLYCEMIA-SEE COMMENTS; Start 06/17/17 at 19:00 Glucagon (Glucagon Inj) 1 mg UNSCH PRN OTHER HYPOGLYCEMIA-SEE COMMENTS; Start 06/17/17 at 19:00 Insulin Human Regular (NovoLIN R SUPPLEMENTAL SCALE) 1 ACHS SLIDING SCALE SQ ; Start 06/17/17 at 21:00 Hydromorphone HCl (Dilaudid Pf Inj) 0.2 mg Q4H PRN IV PAIN 3-7 Last administered on 06/18/17 04:37; Start 06/17/17 at 19:45 Hydromorphone HCl (Dilaudid Pf Inj) 0.5 mg Q4H PRN IV PAIN SCALE 8 TO 10 Last administered on 06/18/17 11:13; Start 06/17/17 at 19:45 Clevidipine 50 ml @ 2 mls/hr TITRATE PRN IV Blood Pressure Management; Start at 19:45 Amlodipine Besylate (Norvasc) 5 mg BID PO ; Start 06/18/17 at 21:00 Clonidine (Catapres) 0.1 mg Q6H PRN PO SBP greater than 160mm Hg Last administered on 06/18/17 13:22; Start 06/18/17 at 09:30 Family History He is adopted. Grandmother with cancer. Positive rheumatoid arthritis Social History Denies tobacco, alcohol or IV drug use Physical Exam Vital Signs Vital Signs Date Time Temp Pulse Resp B/P (MAP) Pulse Ox O2 Delivery O2 Flow Rate FiO2 06/18/17 12:00 98.6 54 22 147/87 (107) 97 9/13/17 12:00 54 06/18/17 10:35 98 21 06/18/17 10:00 52 06/18/17 08:00 98.6 56 25 158/84 (108) 98 06/18/17 08:00 56 06/18/17 07:00 97 Room Air 06/18/17 07:00 56 06/18/17 06:00 54 06/18/17 05:07 15 06/18/17 04:00 56 06/18/17 04:00 98.2 62 19 146/79 (101) 95 06/18/17 02:00 78 06/18/17 01:00 98.7 77 13 119/80 (93) 97 06/18/17 00:00 98.7 77 13 119/80 (93) 97 06/18/17 00:00 78 06/17/17 23:00 78 06/17/17 23:00 98.7 75 15 145/78 (100) 96 06/17/17 22:00 78 06/17/17 21:00 98 21 06/17/17 20:48 62 18 98 06/17/17 20:40 66 16 144/64 (90) 98 Room Air 06/17/17 19:23 60 16 173/93 (119) 98 Room Air 06/17/17 19:20 98 Room Air 06/17/17 16:00 48 14 211/101 (137) 98 Room Air 06/17/17 14:39 60 197/104 (135) 99 Physical Exam The patient is alert, awake and oriented to time, place and person. Speech is fluent. Higher cognitive functions are normal. Cranial nerve examination demonstrates the pupils to be equal, round, and reactive to light. Extra-ocular movements are intact. Facial motor and sensory function are normal and symmetrical. Gross hearing is intact, bilaterally. The uvula is midline and elevates symmetrically with the soft palate. Sternocleidomastoid and trapezius muscles have normal and symmetrical strength. Other cranial nerves are intact. Neck is soft and supple. Cervical spine has a full range of motion in anterior flexion, extension, lateral bending, and rotation without pain. There is no tenderness to palpation to the spinous processes or paraspinal muscles. Muscle testing reveals normal bulk and tone overall without rigidity, spasticity , fasciculations, or atrophy. Muscle strength is 5/5 in all muscle groups of both upper extremities including deltoid, biceps, triceps, brachioradialis, wrist extension and pot builder. In the lower extremities, strength is 5/5 in both iliopsoas, quadriceps, hamstrings, plantar flexion, dorsiflexion, and extensor hallicus longus. Sensory examination is intact to light touch and sharp/dull discrimination in both the upper and lower extremities, symmetrically. Deep tendon reflexes are 2+ and symmetrical in the biceps, triceps, and brachioradialis, bilaterally, in the upper extremities. In the lower extremities , the patellar and Achilles are 2+, bilaterally. There is a bilateral plantar flexion response. Hoffmanns sign is negative. There is no clonus or other abnormal reflexes noted. Cerebellar examination is intact to [id number] test, rapid rhythmic alternating motion. There is no dysmetria, dysdiadochokinesia, truncal ataxia, or tremor. Laboratory Laboratory Tests Test 06/17/17 21:30 06/18/17 04:34 Nasal Screen MRSA (PCR) MRSA NOT DETECTED White Blood Count 10.4 Red Blood Count 4.59 Hemoglobin 14.1 Hematocrit 42.0 Mean Corpuscular Volume 91.4 Mean Corpuscular Hemoglobin 30.6 Mean Corpuscular Hemoglobin Concent 33.5 Red Cell Distribution Width 13.8 Platelet Count 228 Mean Platelet Volume 8.6 Neutrophils (%) (Auto) 84.3 Lymphocytes (%) (Auto) 12.8 Monocytes (%) (Auto) 2.8 Eosinophils (%) (Auto) 0.0 Basophils (%) (Auto) 0.1 Neutrophils # (Auto) 8.8 Lymphocytes # (Auto) 1.3 Monocytes # (Auto) 0.3 Eosinophils # (Auto) 0.0 Basophils # (Auto) 0.0 CBC Comment DIFF FINAL Differential Comment Blood Urea Nitrogen 17 Creatinine 0.91 Random Glucose 160 Total Protein 7.5 Albumin 3.7 Calcium Level 9.2 Alkaline Phosphatase 77 Aspartate Amino Transf (AST/SGOT) 19 Alanine Aminotransferase (ALT/SGPT) 34 Total Bilirubin 0.6 Sodium Level 134 Potassium Level 4.2 Chloride Level 100 Carbon Dioxide Level 25.4 Anion Gap 9 Estimat Glomerular Filtration Rate 84 Date/Time Source Procedure Growth Status 06/17/17 11:45 Urine Clean Catch Urine Culture - Preliminary NO GROWTH IN 24 HOURS. Resulted Result Diagram: 06/18/17 0434 06/18/17 0434 Imaging Last 48 hours Impressions Brain MRI 06/17/17 1134 Signed Impressions: Service Date/Time: Saturday, June 17, 2017 13:16 - CONCLUSION: 1. There is a mass measuring 1.6 x 3.3 x 2.4 cm which fills the fourth ventricle. This is isointense on the T1-weighted images. There is heterogeneous enhancement. Primary differential considerations include ependymoma/subependymoma versus choroid plexus papilloma/carcinoma. Jak Linares MD Head CT 06/17/17 0000 Signed Impressions: Service Date/Time: Saturday, June 17, 2017 19:19 - CONCLUSION: Mass of the fourth ventricle again noted as described above and a small hemorrhagic component is apparent. No significant change from the MRI done previously today including no midline shift or ventriculomegaly. Joe Smith MD Chest X-Ray 06/17/17 0000 Signed Impressions: Service Date/Time: Saturday, June 17, 2017 17:00 - CONCLUSION: No acute disease. Hamilton Stacy MD Assessment and Plan Assessment and Plan (1) Allergic rhinitis Diagnosis: Principal (2) Cystitis Diagnosis: Principal (3) Hyperglycemia Diagnosis: Principal (4) Leukocytosis Diagnosis: Principal (5) Hypertension Diagnosis: Principal (6) Severe enlargement of fourth ventricle Diagnosis: Principal (7) Brain tumor Diagnosis: Principal Caprini VTE Risk Assessment Caprini VTE Risk Assessment: Mod/High Risk (score >= 2) Caprini Risk Assessment Model Point Value = 1 Point Value = 2 Point Value = 3 Point Value = 5 Age 41-60 Minor surgery BMI > 25 kg/m2 Swollen legs Varicose veins or History of unexplained or recurrent spontaneous Oral contraceptives or hormone replacement Sepsis (< 1 month) Serious lung disease, including pneumonia (< 1 month) Abnormal pulmonary function Acute myocardial infarction Congestive heart failure (< 1 month) History of inflammatory bowel disease Medical patient at bed rest Age 61-74 Arthroscopic surgery Major open surgery (> 45 min) Laparoscopic surgery (> 45 min) Malignancy Confined to bed (> 72 hours) Immobilizing plaster cast Central venous access Age >= 75 History of VTE Family history of VTE Factor V Leiden Prothrombin [id number] Lupus anticoagulant Anticardiolipin antibodies Elevated serum homocysteine Heparin-induced thrombocytopenia Other congenital or acquired thrombophilia Stroke (< 1 month) Elective arthroplasty Hip, pelvis, or leg fracture Acute spinal cord injury (< 1 month) Prophylaxis Regimen Total Risk Factor Score Risk Level Prophylaxis Regimen 0-1 Low Early ambulation 2 Moderate Order ONE of the following: *Sequential Compression Device (SCD) *Heparin 5000 units SQ BID 3-4 Higher Order ONE of the following medications: *Heparin 5000 units SQ TID *Enoxaparin/Lovenox 40 mg SQ daily (WT < 150 kg, CrCl > 30 mL/min) *Enoxaparin/Lovenox 30 mg SQ daily (WT < 150 kg, CrCl > 10-29 mL/min) *Enoxaparin/Lovenox 30 mg SQ BID (WT < 150 kg, CrCl > 30 mL/min) AND/OR *Sequential Compression Device (SCD) 5 or more Highest Order ONE of the following medications: *Heparin 5000 units SQ TID (Preferred with Epidurals) *Enoxaparin/Lovenox 40 mg SQ daily (WT < 150 kg, CrCl > 30 mL/min) *Enoxaparin/Lovenox 30 mg SQ daily (WT < 150 kg, CrCl > 10-29 mL/min) *Enoxaparin/Lovenox 30 mg SQ BID (WT < 150 kg, CrCl > 30 mL/min) AND *Sequential Compression Device (SCD) Attending Statement Neuro. neuro checks in a serial fashion. A follow-up CTA of the head will be obtained. Recommend cerebral angiography with possible embolization of the mass prior to a surgical resection Recommend CT of chest, abdomen, and pelvis Headaches. Acetaminophen 650 mg every 6 hours when necessary pain 1 through 2/ fever greater than 100 Hydromorphone 0.2-0.5 mg every 4 hours when necessary pain 3-10. Patient states he has taken this before. Noted allergies to hydrocodone and oxycodone. Arterial Hypertension. Home medications include nebivolol 10 mg a night, amlodipine 2.5 mill grams twice a day and lisinopril 40 mg by mouth twice a day. These been continued with holding parameters for nebivolol for heart rate Continued spironolactone 25 mg by mouth twice a day Clevidipine drip to keep systolic blood pressure less than 140 As needed Nitropaste/hydralazine to keep systolic blood pressure was 140 Resp: Nasal cannula to maintain saturations greater than equal to 92% Incentive spirometry while awake As needed albuterol/ipratropium aerosols every 4 hours when necessary dyspnea Chest x-ray 06/17 revealed no acute findings History of prostate cancer status post prostatectomy/ Flores catheter not indicated currently Hyperglycemia. Sliding-scale insulin to maintain euglycemia Renal: Creatinine currently within normal limits Monitor urine output Accurate I's and O's Leukocytosis Monitor CBC daily. Follow trends. Follow-up on coags ID: Will treat with 3 days aztreonam 1 g IV every 12 hours. Cultures pending Discontinue doxycycline Replace electrolytes as clinically indicated PT OT evaluate and treat Famotidine for GI prophylaxis Docusate sodium/Senokot 1 tablet twice a day for bowel regimen DVT - ANA M jamilae and SCD's Discussed Condition With Patient. . Steven Hunter MD Jun 18, 2017 14:13
[2017-06-18] MEDS ORDERED: DIATRIZOATE MEGLUM/DIATRIZOATE SOD 9 ML CUP PO ONE (15:00)
[2017-06-18] MEDS ORDERED: IOHEXOL 350 MG/ML 10 ML VIAL (for RAD DIAG) IVCONTRAST ONE (17:25)
--- NOTE | 2017-06-18 17:37 | RADRPT ---
EXAM DATE/TIME: 06/18/2017 17:02 [facility] COMPARISON: MRI BRAIN W & W/O CONTRAST, June 17, 2017, 13:16. INDICATIONS : Evaluate intraventricular mass. IV CONTRAST: 98 cc Omnipaque 350 (iohexol) IV ; Cumulative dose for multiple exams. RADIATION DOSE: 54.48 CTDIvol (mGy) MEDICAL HISTORY : Seizures. Hypertension. Carcinoma, prostate. SURGICAL HISTORY : None. ENCOUNTER: Subsequent ACUITY: 2 days PAIN SCALE: 0/10 LOCATION: cranial TECHNIQUE: Multiple contiguous axial images were obtained of the head. Using automated exposure control and adj ustment of the mA and/or kV according to patient size, radiation dose was kept as low as reasonably a chievable to obtain optimal diagnostic quality images. DICOM format image data is available electro nically for review and comparison. FINDINGS: Again seen is the mass filling the fourth ventricle, intensely enhancing. This measures 2.14 cm. Carranza pratentorial ventricles are normal in size. No other abnormal contrast enhancement is evident. There are no extra-axial fluid collections apprec iated. CONCLUSION: 2 cm contrast enhancing mass within the fourth ventricle. Differential includes ependymoma/subependy moma, metastatic disease. Lack of hydrocephalus would suggest this is slow-growing. Lg Linares MD FACR on June 18, 2017 at 17:32 Board Certified Radiologist. This report was verified electronically.
--- NOTE | 2017-06-18 17:53 | RADRPT ---
EXAM DATE/TIME: 06/18/2017 16:54 [facility] COMPARISON: No previous studies available for comparison. INDICATIONS : Evaluate for metss, brain tumor. RADIATION DOSE: 19.05 CTDIvol (mGy) ; Combined studies - Thorax/Abdomen/Pelvis MEDICAL HISTORY : Seizures. Hypertension. Carcinoma, prostate. SURGICAL HISTORY : None. ENCOUNTER: Initial ACUITY: 2 days PAIN SCALE: 0/10 LOCATION: chest TECHNIQUE: Volumetric scanning of the chest was performed. Using automated exposure control and adjustment of t he mA and/or kV according to patient size, radiation dose was kept as low as reasonably achievable to obtain optimal diagnostic quality images. DICOM format image data is available electronically for review and comparison. Follow-up recommendations for detected pulmonary nodules are based at a minimum on nodule size and pa tient risk factors according to Fleischner Society Guidelines. FINDINGS: LUNGS: There is no consolidation or pneumothorax. No concerning pulmonary nodule is visualized. PLEURA: There is no pleural thickening or pleural effusion. MEDIASTINUM: The heart and great vessels demonstrate no acute abnormality. There is no mediastinal or hilar lymph adenopathy. AXILLAE: Within normal limits. No lymphadenopathy. SKELETAL: Mild degenerative changes. MISCELLANEOUS: Please see the CT scan of the abdomen and pelvis report CONCLUSION: Negative for primary or metastatic disease. Lg Linares MD FACR on June 18, 2017 at 17:51 Board Certified Radiologist. This report was verified electronically.
--- NOTE | 2017-06-18 18:04 | RADRPT ---
EXAM DATE/TIME: 06/18/2017 16:54 [facility] COMPARISON: CT THORAX W CONTRAST, June 18, 2017, 16:54. INDICATIONS : Evaluate mets, brain tumor. ORAL CONTRAST: No oral contrast ingested. RADIATION DOSE: 19.05 CTDIvol (mGy) ; Combined studies - Thorax/Abdomen/Pelvis MEDICAL HISTORY : Seizures. Hypertension. Carcinoma, prostate. SURGICAL HISTORY : None. ENCOUNTER: Initial ACUITY: 1 day PAIN SCALE: 0/10 LOCATION: abdomen TECHNIQUE: Volumetric scanning of the abdomen and pelvis was performed. Using automated exposure control and ad justment of the mA and/or kV according to patient size, radiation dose was kept as low as reasonably achievable to obtain optimal diagnostic quality images. DICOM format image data is available electro nically for review and comparison. FINDINGS: LIVER: Homogeneous density without lesion. There is no dilation of the biliary tree. No calcified gallston es. SPLEEN: Normal size without lesion. PANCREAS: Within normal limits. KIDNEYS: Patchy cortical thinning/scarring and a few tiny, benign-appearing cysts. No hydronephrosis or hydrou reter. ADRENAL GLANDS: Within normal limits. VASCULAR: There is no aortic aneurysm. BOWEL/MESENTERY: No ileocecal valve is a questionable soft tissue mass measuring approximately 2.6 x 3.2 x 4.0 cm, ser ies 6 image 55 and series 601 image 25. No inflammatory changes or obstruction of the GI tract. ABDOMINAL WALL: Within normal limits. RETROPERITONEUM: There is no lymphadenopathy. BLADDER: No wall thickening or mass. REPRODUCTIVE: Prostatectomy changes. INGUINAL: There is no lymphadenopathy or hernia. MUSCULOSKELETAL: No acute bony abnormality demonstrated. No lytic or sclerotic lesions seen. CONCLUSION: 1. Possible mass of the cecum. If not done recently, attempted direct visualization with colonoscopy recommended. 2. Previous prostatectomy. 3. No evidence of bony metastatic disease. 4. Patchy cortical thinning/scarring of both kidneys. No obstructive uropathy. Joe Smith MD on June 18, 2017 at 17:58 Board Certified Radiologist. This report was verified electronically.
[2017-06-18] MEDS: NEBIVOLOL 10 MG TAB PO SCH (20:50)
[2017-06-18] MEDS: ACETAMINOPHEN 325 MG TAB PO PRN (20:51)
--- NOTE | 2017-06-18 21:56 | EKG ---
Date Performed: 06/17/2017 Time Performed: 11:50:23 PTAGE: 67 years EKG: SINUS BRADYCARDIA MARKED LEFT AXIS DEVIATION LEFT VENTRICULAR HYPERTROPHY AND ST-T CHANGE A BNORMAL ECG NO PREVIOUS TRACING DOCTOR: Alia Seymour Interpretating Date/Time 06/18/2017 21:55:44
[2017-06-19] VITALS (13 sets, daily range): BP systolic 139–189; BP diastolic 71–93; PULSE 48–58; RESP 14–23; TEMP 98–98.8; O2SAT 96–99
[2017-06-19] MEDS: cloNIDine HCL 0.1 MG TAB PO PRN (01:19)
[2017-06-19] MEDS: SODIUM CHLOR 0.9% 1000 ML INJ 1,000 ML IV SCH ×2 (03:36→23:00)
[2017-06-19] MEDS: CHLORHEXIDINE GLUCONATE 2 % 1 PACK (2 CLOTHS) TOP SCH (04:00)
[2017-06-19] MEDS: DEXAMETHASONE SOD PHOS 4 MG/ML VIAL IV PUSH SCH ×4 (04:23→21:22)
[2017-06-19] MEDS: DOCUSATE SODIUM 50 MG/SENNA 8.6 MG TAB PO SCH ×2 (07:37→20:30)
[2017-06-19] MEDS: INSULIN NovoLIN REGULAR SUPPLEMENTAL SCALE SQ SCH ×4 (07:38→20:30)
[2017-06-19] MEDS: SPIRONOLACTONE 25 MG TAB PO SCH (07:38)
[2017-06-19] MEDS: amLODIPine BESYLATE 5 MG TAB PO SCH ×2 (07:38→20:29)
[2017-06-19] MEDS: FAMOTIDINE 20 MG TAB PO SCH ×2 (07:38→20:30)
[2017-06-19] MEDS: AZTREONAM INJ 1,000 MG in SODIUM CHLORIDE 0.9% INJ 100 ML IV SCH ×2 (07:38→20:29)
[2017-06-19] MEDS: LISINOPRIL 20 MG TAB PO SCH ×2 (07:38→20:30)
[2017-06-19] MEDS: FLUTICASONE PROPIONATE 50 MCG/ACT 16 GM NASAL SPRAY EACH NARE SCH ×2 (07:39→20:29)
[2017-06-19] MEDS: SODIUM CHLORIDE 0.9% FLUSH 10 ML FLUSH IV FLUSH SCH ×2 (07:39→20:29)
[2017-06-19] MEDS ORDERED: MIDAZOLAM HCL 5 MG/5 ML VIAL ONE (11:03)
--- NOTE | 2017-06-19 12:28 | PD.RAD ---
Post Procedure Progress Note Pre Procedure Diagnosis: (1) Brain tumor (2) Severe enlargement of fourth ventricle Post Procedure Diagnosis: (1) Severe enlargement of fourth ventricle (2) Brain tumor Procedure Date: Jun 19, 2017 Supervising Radiologist: Jak Linares Estimated blood loss: 3cc Anesthesia: Local, Conscious Sedation Plan of Activity Patient to Unit: [facility] Patient Condition: Fair Additional Comments: 4 vessel cerebral angio completed. Patients mass is not identified and felt to be hypovascular. Full dictated report to follow. See PACS Report for procedural detail/treatment Jak Linares MD Jun 19, 2017 12:28
[2017-06-19] MEDS ORDERED: IODIXANOL 320 MG/ML 50 ML VIAL (for RAD SPEC) I-ARTERIAL ONE (13:08)
--- NOTE | 2017-06-19 13:20 | HHI.NSPN ---
(Claudia Camacho) Note Status Status: Progress Note (Claudia Camacho) Interval History Interval History This is a 67-year-old male with history of arterial hypertension and prostate Ca. He present to the [facility] with vertigo. He's been having vertigo for about 4 weeks but is getting progressively worse. The vertigo is aggravated by movement of the head by standing.. It has been worse last couple of days, it has been quite severe. He's having a headache behind both of his eyes. He says he is unable to stand without falling over. He has a history of prostate cancer and has had a radical prostatectomy. He says he has had recurrent urinary tract infections. He has had multiple surgeries including multiple orthopedic procedures as well as appendectomy and hernia. He was diagnosed with an ear infection and has been treated with doxycycline for 2 weeks. MRI of the brain revealed a 1.6 x 3.3 x 2.4 cm mass arising from the fourth ventricle with ventricular enlargement.He was placed dexamethasone 4 mg IV every 6 hours He has been hypertensive. He reports diffuse headaches [address] brain revealed small focal hemorrhagic component was left 9 x 15 mm. Neurosurgical consultation was requested 06/19: awaiting cerebral angiography today. no new neurological complaints. (Claudia Camacho) Labs, Micro, & Vital Signs Results Date Time Temp Pulse Resp B/P (MAP) Pulse Ox O2 Delivery O2 Flow Rate FiO2 06/19/17 08:00 50 06/19/17 08:00 98.8 50 15 163/88 (113) 98 06/19/17 07:00 51 06/19/17 07:00 97 Room Air 06/19/17 06:00 52 06/19/17 04:00 98.0 50 23 139/77 (97) 97 06/19/17 04:00 50 06/19/17 02:00 58 06/19/17 00:00 98.2 57 14 144/71 (95) 96 06/19/17 00:00 57 06/18/17 23:00 54 06/18/17 22:00 61 06/18/17 21:51 16 06/18/17 20:00 97.7 57 25 148/84 (105) 98 06/18/17 20:00 61 06/18/17 19:00 100 Room Air 06/18/17 18:00 64 06/18/17 16:00 56 06/18/17 16:00 98.5 56 30 149/79 (102) 99 06/18/17 15:00 65 06/18/17 14:00 63 Constitutional Vital Signs Date Time Temp Pulse Resp B/P (MAP) Pulse Ox O2 Delivery O2 Flow Rate FiO2 06/19/17 08:00 50 06/19/17 08:00 98.8 50 15 163/88 (113) 98 06/19/17 07:00 51 06/19/17 07:00 97 Room Air 06/19/17 06:00 52 06/19/17 04:00 98.0 50 23 139/77 (97) 97 06/19/17 04:00 50 06/19/17 02:00 58 06/19/17 00:00 98.2 57 14 144/71 (95) 96 06/19/17 00:00 57 06/18/17 23:00 54 06/18/17 22:00 61 06/18/17 21:51 16 06/18/17 20:00 97.7 57 25 148/84 (105) 98 06/18/17 20:00 61 06/18/17 19:00 100 Room Air 06/18/17 18:00 64 06/18/17 16:00 56 06/18/17 16:00 98.5 56 30 149/79 (102) 99 06/18/17 15:00 65 06/18/17 14:00 63 (Claudia Camacho) Review of Systems Constitutional: COMPLAINS OF: Dizziness, DENIES: Fever, Chills Eyes: COMPLAINS OF: Diplopia, Double Vision Ears, nose, mouth, throat: COMPLAINS OF: Vertigo Respiratory: DENIES: Apneas Cardiovascular: DENIES: Chest pain Gastrointestinal: DENIES: Abdominal pain, Nausea, Vomiting Neurologic: COMPLAINS OF: Headache, DENIES: Seizures, Speech Problems (Claudia Camacho) Physical Exam Mr. Samaniego alert, awake and oriented to time, place and person. Speech is fluent. Cranial nerve examination: pupils equal, round, and reactive to light. EOMs are intact. Facial motor and sensory function are normal and symmetrical. No nystagmus noted. Neck is soft and supple. Muscle testing reveals normal bulk and tone. Muscle strength is 5/5 in all muscle groups of both upper extremities including deltoid, biceps, triceps, brachioradialis, wrist extension and teletray operator. In the lower extremities, strength is 5/5 in both iliopsoas, quadriceps, hamstrings, plantar flexion, dorsiflexion , and extensor hallicus longus. Sensory examination is intact to light touch in both the upper and lower extremities, symmetrically. Deep tendon reflexes are 2+ and symmetrical in the biceps, triceps, and brachioradialis, bilaterally, in the upper extremities. In the lower extremities, the patellar and Achilles are 2+, bilaterally. There is a bilateral plantar flexion response. No ankle clonus. Cerebellar examination is intact to [id number] test. (Claudia Camacho) Medications Current Medications Current Medications Medications (Trade) Dose Ordered Sig/Geovany Route PRN Reason Start Time Stop Time Status Last Admin Dose Admin Sodium Chloride 1,000 ml @ 84 mls/hr [id number] IV 06/17/17 15:51 06/17/17 17:08 Sodium Chloride (NS Flush) 2 ml UNSCH PRN IV FLUSH FLUSH AFTER USING IV ACCESS 06/17/17 16:00 Sodium Chloride (NS Flush) 2 ml BID IV FLUSH 06/17/17 21:00 06/19/17 07:39 Acetaminophen (Tylenol) 650 mg Q6H PRN PO PAIN 1-2 AND/OR FEVER >100F 06/17/17 16:00 06/18/17 20:51 Famotidine (Pepcid) 20 mg Q12HR PO 06/17/17 21:00 06/19/17 07:38 Ondansetron HCl (Zofran Inj) 4 mg Q6H PRN IV PUSH NAUSEA OR VOMITING 06/17/17 16:00 06/18/17 06:52 Albuterol/ Ipratropium (Duoneb Neb) 1 ampule Q4HR NEB PRN INH WHEEZING 06/17/17 16:00 Miscellaneous Information 1 [id number] XX 06/17/17 16:00 Chlorhexidine Gluconate (Chlorhexidine 2% Cloth) 3 pack Taper DAILY@04 TOP 06/18/17 04:00 06/14/18 03:59 Chlorhexidine Gluconate (Chlorhexidine 2% Cloth) 3 pack UNSCH PRN TOP HYGIENIC CARE 06/17/17 16:00 Senna/Docusate Sodium (Shakira-Colace) 1 tab BID PO 06/17/17 21:00 06/19/17 07:37 Magnesium Hydroxide (Milk Of Magnesia Liq) 30 ml Q12H PRN PO MILD - MODERATE CONSTIPATION 06/17/17 16:00 Sennosides (Senokot) 17.2 mg Q12H PRN PO MODERATE - SEVERE CONSTIPATION 06/17/17 16:00 Bisacodyl (Dulcolax Supp) 10 mg DAILY PRN RECTAL SEVERE CONSITIPATION 06/17/17 16:00 Lactulose (Lactulose Liq) 30 ml DAILY PRN PO SEVERE CONSITIPATION 06/17/17 16:00 Fluticasone Propionate (Flonase Cortes Spr) 1 spray BID EACH NARE 06/17/17 21:00 06/19/17 07:39 Nebivolol (Bystolic) 10 mg HS PO 06/17/17 21:00 06/18/17 20:50 Spironolactone (Aldactone) 25 mg DAILY PO 06/18/17 09:00 06/19/17 07:38 Dexamethasone Sodium Phosphate (Decadron Inj) 4 mg Q6H IV PUSH 06/17/17 22:00 06/19/17 04:23 Miscellaneous (Pill Splitter) 1 ea UNSCH PRN OTHER SEE LABEL COMMENTS 06/17/17 16:30 Hydralazine HCl (Apresoline Inj) 10 mg Q1HR PRN IV PUSH SBP greater than 140mm Hg 06/17/17 18:45 Nitroglycerin (Nitroglycerin 2% Oint) 2 inch Q6HR PRN TOPICAL SBP>140, DBP>90 06/17/17 18:30 Lisinopril (Prinivil) 40 mg BID PO 06/17/17 21:00 06/19/17 07:38 Aztreonam 1000 mg/ Sodium Chloride 100 ml @ 200 mls/hr Q12H IV 06/17/17 20:00 06/20/17 19:59 06/19/17 07:38 Dextrose (D50w (Vial) Inj) 50 ml UNSCH PRN IV HYPOGLYCEMIA-SEE COMMENTS 06/17/17 19:00 Glucagon (Glucagon Inj) 1 mg UNSCH PRN OTHER HYPOGLYCEMIA-SEE COMMENTS 06/17/17 19:00 Insulin Human Regular (NovoLIN R SUPPLEMENTAL SCALE) 1 ACHS SLIDING SCALE SQ 06/17/17 21:00 Hydromorphone HCl (Dilaudid Pf Inj) 0.2 mg Q4H PRN IV PAIN 3-7 06/17/17 19:45 06/18/17 04:37 Hydromorphone HCl (Dilaudid Pf Inj) 0.5 mg Q4H PRN IV PAIN SCALE 8 TO 10 06/17/17 19:45 06/18/17 15:53 Clevidipine 50 ml @ 2 mls/hr TITRATE PRN IV Blood Pressure Management 06/17/17 19:45 Amlodipine Besylate (Norvasc) 5 mg BID PO 06/18/17 21:00 06/19/17 07:38 Clonidine (Catapres) 0.1 mg Q6H PRN PO SBP greater than 160mm Hg 06/18/17 09:30 06/19/17 01:19 (Claudia Camacho) Medical Decision Making MDM Remarks 67 y/o male with fourth ventricle mass with surrounding hemorrhage (Claudia Camacho) Plan Plan Remarks f/u cerebral angiography today stealth MRI for brain lab to OR tomorrow for resection of brain mass, NPO tonight, consents in chart (Claudia Camacho) Attending Statement As above, CTA of the head was reviewed. Awaiting cerebral angiography. For a a surgical resection in the morning. I have discussed the details including the [id number]-[id number] details of the surgical procedure, its indications, alternatives, risks, and potential complications. Risks and potential complications include, but are not limited to, infection, blood loss, CSF leak, partial or complete loss of sight in one or both eyes, paresis, paralysis, permanent pain or difficulty swallowing, loss of bowel or bladder function, complications from anesthesia, blood clot, stroke, myocardial infarction, or even . CT of chest, abdomen, and pelvis was reviewed. colon mass. Will need colonoscopy in the future Headaches. Acetaminophen 650 mg every 6 hours when necessary pain 1 through 2/ fever greater than 100 Hydromorphone 0.2-0.5 mg every 4 hours when necessary pain 3-10. Patient states he has taken this before. Noted allergies to hydrocodone and oxycodone. Arterial Hypertension. Home medications include nebivolol 10 mg a night, amlodipine 2.5 mill grams twice a day and lisinopril 40 mg by mouth twice a day. These been continued with holding parameters for nebivolol for heart rate Continued spironolactone 25 mg by mouth twice a day Clevidipine drip to keep systolic blood pressure less than 140 As needed Nitropaste/hydralazine to keep systolic blood pressure was 140 Resp: Nasal cannula to maintain saturations greater than equal to 92% Incentive spirometry while awake As needed albuterol/ipratropium aerosols every 4 hours when necessary dyspnea Chest x-ray 06/17 revealed no acute findings History of prostate cancer status post prostatectomy/ Flores catheter not indicated currently Hyperglycemia. Sliding-scale insulin to maintain euglycemia Renal: Creatinine currently within normal limits Monitor urine output Accurate I's and O's Leukocytosis Monitor CBC daily. Follow trends. Follow-up on coags ID: Will treat with 3 days aztreonam 1 g IV every 12 hours. Cultures pending Discontinue doxycycline Replace electrolytes as clinically indicated PT OT evaluate and treat Famotidine for GI prophylaxis Docusate sodium/Senokot 1 tablet twice a day for bowel regimen DVT - ANA M marinoe and SCD's Discussed Condition With Patient's and with . (Steven Hunter MD) Claudia Camacho Jun 19, 2017 13:20 Steven Hunter MD Jun 23, 2017 10:48
[2017-06-19] MEDS ORDERED: VANCOMYCIN INJ 1,000 MG in SODIUM CHLOR 0.9% 250 ML INJ 250 ML IV SCH (13:30)
--- NOTE | 2017-06-19 15:20 | RADRPT ---
EXAM DATE/TIME: 06/19/2017 10:38 This report includes an Addendum and supersedes previous reports for this exam. [facility] COMPARISON: MRI BRAIN W & W/O CONTRAST, June 17, 2017, 13:16. A INDICATIONS : Patient with a history of intraventricular mass. MEDICAL HISTORY : HTN Prostate cancer Allergic rhinitis SURGICAL HISTORY : Prostatectomy Appendectomy Hernia repair ENCOUNTER: Initial ACUITY: 2 days PAIN SCORE: 5/10 Back FLUORO TIME: 21.6 minutes IMAGE SERIES: 23 ACCESS SITE: Right Femoral artery SEDATION TIME: 30 minutes CONTRAST: 100 cc Visipaque (iodixanol) MEDICATION(S): 1.) 3 mg midazolam (Versed) IV 2.) 200 mcg fentanyl (Sublimaze) IV DEVICE(S): 1.) Right common femoral artery 6F Angio-Seal PROCEDURE : 1. Ultrasound-guided puncture of the access site. 2. Angiography of the access site prior to closure device. 3. Conscious sedation with continuous EKG and Oximetry monitoring. 4. Percutaneous closure of the access site. 5. 4 vessel cerebral angiogram of the brain. The risks, benefits and alternatives to the procedure were explained and verbal and written consent w as obtained. The site was prepped in sterile fashion. Full sterile technique was used, including ca p, mask, sterile gloves and gown and a large sterile sheet. Hand hygiene and 2% chlorhexidine and/or betadine/alcohol prep was utilized per protocol for cutaneous antisepsis. Sterile gel and sterile p robe cover were utilized for ultrasound guidance. The skin and subcutaneous tissues were infiltrated with local anesthetic solution. With ultrasound and fluoroscopic guidance the right common femoral artery was punctured and a vascula r sheath was placed. Angiography of the common femoral artery was performed for evaluation prior to percutaneous closure device placement. A 0.035 Glidewire a JB2 catheter were advanced into the arch. The left vertebral, left carotid and ri ght carotid circulation was easily selected. Angiography of these vessels was performed. The JB2 cath eter was exchanged for a vertebral curve catheter. The right vertebral was selected. Angiography of t he right vertebral circulation was performed. Results: Carotid circulation: The right and left carotid circulation is widely patent. anterior and middle cerebral circulation is normal in appearance. Vertebral circulation: Both vertebral arteries are sizable vessels and are widely patent. The appearance of the vertebral ci rculation on the left is normal in appearance. The basilar is widely patent and is normal in appearan ce. The exam does demonstrate the right high, to be prominent in size. There is no neovascularity or significant vascular enlargement however I do believe on the capillary phase imaging this lesion is f aintly visible. Hemostasis was obtained with the prescribed medicated closure device. Conscious sedation was perform ed with the prescribed dosages and duration as above in the presence of an independent trained radiol ogy nurse to assist in the monitoring of the patient. EKG and oximetry remained stable throughout th e procedure. CONCLUSION: The exam demonstrates questionable, faint visualization of the lesion on the capillary phase imaging with injection of the right vertebral. This appears to feed via the right PICA. For the most part, th is lesion appears hypovascular. Jak Linares MD on June 19, 2017 at 14:56 Board Certified Radiologist. This report was verified electronically. ADDENDUM: There is limited visualization of the carotid circulation. Right carotid: The common carotid, internal carotid external carotid are widely patent. No hemodynami alivia significant stenosis is identified. Left carotid: The bifurcation is patent. There is minimal atherosclerotic plaquing. There is less ciarra n 10% stenosis by NASCET criteria in the origin of the left internal carotid. No hemodynamically sign ificant lesion is seen. Jak Linares MD on July 02, 2017 at 15:15 Board Certified Radiologist. This report was verified electronically.
--- NOTE | 2017-06-19 15:24 | HHI.PR ---
Subjective Remarks Patient reports is feeling okay as long as he lay still in the bed. Otherwise he gets vertigo. Objective Vitals Vital Signs Date Time Temp Pulse Resp B/P (MAP) Pulse Ox O2 Delivery O2 Flow Rate FiO2 06/19/17 14:00 50 06/19/17 08:00 50 06/19/17 08:00 98.8 50 15 163/88 (113) 98 06/19/17 07:00 51 06/19/17 07:00 97 Room Air 06/19/17 06:00 52 06/19/17 04:00 98.0 50 23 139/77 (97) 97 06/19/17 04:00 50 06/19/17 02:00 58 06/19/17 00:00 98.2 57 14 144/71 (95) 96 06/19/17 00:00 57 06/18/17 23:00 54 06/18/17 22:00 61 06/18/17 21:51 16 06/18/17 20:00 97.7 57 25 148/84 (105) 98 06/18/17 20:00 61 06/18/17 19:00 100 Room Air 06/18/17 18:00 64 06/18/17 16:00 56 06/18/17 16:00 98.5 56 30 149/79 (102) 99 I/O 06/18/17 06/18/17 06/18/17 06/19/17 06/19/17 06/19/17 07:00 15:00 23:00 07:00 15:00 23:00 Intake Total 670 ml 100 ml 1032 ml 240 ml Output Total 600 ml 400 ml 850 ml Balance 70 ml 100 ml 632 ml -610 ml Intake Oral 0 ml 780 ml 240 ml IV Total 670 ml 100 ml 252 ml Output Urine Total 600 ml 400 ml 850 ml Stool Total 0 ml 0 ml 0 ml # Voids 1 Result Diagram: 06/18/17 0434 06/18/17 0434 Imaging Last Impressions Cerebral Arteriogram 06/19/17 0000 Signed Impressions: Service Date/Time: June 10:38 - CONCLUSION: The exam demonstrates questionable, faint visualization of the lesion on the capillary phase imaging with injection of the right vertebral. This appears to feed via the right PICA. For the most part, this lesion appears hypovascular. Jak Linares MD Head CT 06/18/17 0000 Signed Impressions: Service Date/Time: Sunday, June 18, 2017 17:02 - CONCLUSION: 2 cm contrast enhancing mass within the fourth ventricle. Differential includes ependymoma/subependymoma, metastatic disease. Lack of hydrocephalus would suggest this is slow-growing. Lg Linares MD FACR Chest CT 06/18/17 0000 Signed Impressions: Service Date/Time: Sunday, June 18, 2017 16:54 - CONCLUSION: Negative for primary or metastatic disease. Lg Linares MD FACR Abdomen/Pelvis CT 06/18/17 0000 Signed Impressions: Service Date/Time: Sunday, June 18, 2017 16:54 - CONCLUSION: 1. Possible mass of the cecum. If not done recently, attempted direct visualization with colonoscopy recommended. 2. Previous prostatectomy. 3. No evidence of bony metastatic disease. 4. Patchy cortical thinning/scarring of both kidneys. No obstructive uropathy. Joe Smith MD Brain MRI 06/17/17 1134 Signed Impressions: Service Date/Time: Saturday, June 17, 2017 13:16 - CONCLUSION: 1. There is a mass measuring 1.6 x 3.3 x 2.4 cm which fills the fourth ventricle. This is isointense on the T1-weighted images. There is heterogeneous enhancement. Primary differential considerations include ependymoma/subependymoma versus choroid plexus papilloma/carcinoma. Jak Linares MD Chest X-Ray 06/17/17 0000 Signed Impressions: Service Date/Time: Saturday, June 17, 2017 17:00 - CONCLUSION: No acute disease. Hamilton Stacy MD Objective Remarks GENERAL: Obese male in no apparent distress. CARDIOVASCULAR: Normal rate and regular rhythm without murmurs, gallops, or rubs. RESPIRATORY: Good respiratory efforts. Breath sounds equal and clear to auscultation bilaterally. GASTROINTESTINAL: Abdomen soft, non-tender, non-distended. Normal active bowel sounds MUSCULOSKELETAL: Extremities without cyanosis, or edema. NEURO: Alert & Oriented x4 to person, place, time, situation. Moves all ext x4. PSYCH: Appropriate mood and affect. Date of Insertion: Jun 18, 2017 Line: Central Venous Catheter Side: Right Location: Internal, Jugular A/P Problem List: (1) Allergic rhinitis ICD Code: J30.9 - Allergic rhinitis, unspecified (2) Cystitis ICD Code: N30.90 - Cystitis, unspecified without hematuria (3) Hyperglycemia ICD Code: R73.9 - Hyperglycemia, unspecified (4) Leukocytosis ICD Code: D72.829 - Elevated white blood cell count, unspecified (5) Hypertension ICD Code: I10 - Essential (primary) hypertension (6) Severe enlargement of fourth ventricle ICD Code: G93.89 - Other specified disorders of brain (7) Brain tumor ICD Code: D49.6 - Neoplasm of unspecified behavior of brain Status: Acute Assessment and Plan 67-year-old male who presented to the hospital with vertigo that has been progressive over the past 4 weeks. MRI revealed a brain mass. Fourth ventricle enlargement/mass Headaches NOS MRI brain 06/17 revealed a 1.6 3.3 x 2.4 cm mass arising from the epidemic. Differential includes ependymoma, choroid plexus papilloma versus other Dexamethasone 4 mg IV every 6 hours scheduled. Acetaminophen 650 mg every 6 hours when necessary pain 1 through 2/fever greater than 100 Hydromorphone 0.2-0.5 mg every 4 hours when necessary pain 3-10. Patient states he has taken this before. Noted allergies to hydrocodone and oxycodone. CT brain revealed 9 x 15 mm focal hemorrhagic component.. See below for blood pressure modification. Neurosurgery planning for resection. Attempt that embolization by IR, however area thought to be hypovascular. CT abdomen revealed a possible cecal mass. Will need scope Hypertension Home medications include nebivolol 10 mg a night, increase dose of amlodipine 5 mg twice a day , continue lisinopril 40 mg by mouth twice a day. These been continued with holding parameters for nebivolol for heart rate Continued spironolactone 25 mg by mouth twice a day Off Clevidipine drip. Clonidine when necessary. As needed Nitropaste/hydralazine to keep systolic blood pressure was 140 Uncomplicated cystitis Patient was being treated with 3 days aztreonam 1 g IV every 12 hours. Cultures negative. Discontinue aztreonam. Prophylaxis - GI - famotidine - DVT - SCD/holding pharmacological prophylaxis for likely surgical intervention within 24 hours Problem Qualifiers (1) Allergic rhinitis: Qualified Codes: J30.9 - Allergic rhinitis, unspecified (2) Leukocytosis: Qualified Codes: D72.829 - Elevated white blood cell count, unspecified (3) Hypertension: Qualified Codes: I10 - Essential (primary) hypertension Maile Rao MD Jun 19, 2017 15:24
[2017-06-19] MEDS ORDERED: GADODIAMIDE PF 287 MG/ML 5 ML VIAL (for RAD MRI) IVCONTRAST ONE (17:37)
--- NOTE | 2017-06-19 18:06 | RADRPT ---
EXAM DATE/TIME: 06/19/2017 17:37 [facility] COMPARISON: No previous studies available for comparison. INDICATIONS : Mass. CONTRAST: 15 cc Omniscan (gadodiamide) IV MEDICAL HISTORY : Hypertension. Carcinoma, prostate. SURGICAL HISTORY : Prostatectomy. Appendectomy. Umbilical hernia repair. Elbow surgery. ENCOUNTER: Subsequent ACUITY: 3 day PAIN SCORE: 3/10 LOCATION: cranial TECHNIQUE: An MRI brain stealth procedure was performed. The information will be used in the OR for localizatio n. FINDINGS: Heterogeneously enhancing mass again seen of the fourth ventricle, measures approximately 19 x 22 x 3 3 mm in size. No other lesions are demonstrated. There remains no ventriculomegaly. CONCLUSION: Stealth protocol for purposes of localizing the known fourth ventricle mass. The lesion measures appr oximately 19 x 22 x 33 mm and has heterogeneous enhancement. Joe Smith MD on June 19, 2017 at 18:04 Board Certified Radiologist. This report was verified electronically.
[2017-06-19] MEDS: NEBIVOLOL 10 MG TAB PO SCH (20:29)
[2017-06-19] MEDS: HYDROmorphone HCL PF 1 MG/ML VIAL IV PRN (20:31)
[2017-06-20] VITALS (9 sets, daily range): BP systolic 150–169; BP diastolic 78–93; PULSE 50–82; RESP 14–28; TEMP 97.5–98; O2SAT 96–100
[2017-06-20] MEDS: DEXAMETHASONE SOD PHOS 4 MG/ML VIAL IV PUSH SCH ×4 (03:54→22:34)
[2017-06-20] MEDS: hydrALAZINE HCL 20 MG/ML VIAL IV PUSH PRN ×3 (03:55→23:20)
[2017-06-20] MEDS: CHLORHEXIDINE GLUCONATE 2 % 1 PACK (2 CLOTHS) TOP SCH (04:00)
[2017-06-20] MEDS ORDERED: THROMBIN (TOPICAL) 5,000 UNIT VIAL ONE (07:22)
[2017-06-20] MEDS ORDERED: ceFAZolin 2 GM PREMIX 0 ML ONE (07:22)
[2017-06-20] MEDS ORDERED: LIDOCAINE 2%/EPINEPHrine PF 1:200,000 20ML SDV ONE (07:22)
[2017-06-20] MEDS ORDERED: GELFOAM SIZE 100 ONE (07:22)
[2017-06-20] MEDS ORDERED: FUROSEMIDE 40 MG/4 ML VIAL ONE (07:23)
[2017-06-20] MEDS ORDERED: GENTAMICIN SULFATE 80 MG/2 ML VIAL ONE (07:23)
[2017-06-20] MEDS ORDERED: MANNITOL INJ 100 ML ONE ×2 (07:23→11:44)
[2017-06-20] MEDS ORDERED: BACITRACIN TOP OINT 15 GM TUBE ONE (07:23)
[2017-06-20] MEDS ORDERED: levETIRAcetam 500 MG/5 ML VIAL IV ONE (07:23)
[2017-06-20 07:51] LABS: APTT (PATIENT) 21.8 SEC (24.3-30.1); INTERNATIONAL NORMALIZED RATIO 0.9 RATIO; PROTHROMBIN TIME - PATIENT 10.3 SEC (9.8-11.6)
[2017-06-20] MEDS: INSULIN NovoLIN REGULAR SUPPLEMENTAL SCALE SQ SCH ×4 (08:00→20:31)
[2017-06-20 08:01] LABS: BASOPHIL % 0.3 % (0.0-2.0); HEMATOCRIT 43.2 % (39.0-51.0); LYMPH % 6.8 % (9.0-44.0); LYMPHOCYTE # 1.1 TH/MM3 (1.0-4.8); MEAN CELL VOLUME 91.7 FL (80.0-100.0); MEAN CORPUSCULAR HEMOGLOBIN 30.4 PG (27.0-34.0); MEAN CORPUSCULAR HGB CONC 33.1 % (32.0-36.0); MONO % 4.7 % (0.0-8.0); NEUT % 88.2 % (16.0-70.0); PLATELET COUNT 214 TH/MM3 (150-450); POTASSIUM 4.1 MEQ/L (3.5-5.1); RED BLOOD COUNT 4.71 MIL/MM3 (4.50-5.90); RED CELL DISTRIBUTION WIDTH 13.6 % (11.6-17.2); WHITE BLOOD COUNT 15.8 TH/MM3 (4.0-11.0)
[2017-06-20] MEDS: AZTREONAM INJ 1,000 MG in SODIUM CHLORIDE 0.9% INJ 100 ML IV SCH (08:30)
[2017-06-20 08:35] LABS: HEMO FLAGS AUTO DIFF
[2017-06-20] MEDS ORDERED: VANCOMYCIN HCL 1000 MG VIAL ONE (08:40)
[2017-06-20] MEDS ORDERED: MICROFIBRILLAR COLLAGEN HEMOSTAT 70 X 35 MM BANDAGE ONE (08:41)
[2017-06-20] MEDS ORDERED: SODIUM CHLOR 0.9% 250 ML INJ 250 ML ONE (08:41)
[2017-06-20] MEDS: SODIUM CHLORIDE 0.9% FLUSH 10 ML FLUSH IV FLUSH SCH (09:00)
[2017-06-20] MEDS: DOCUSATE SODIUM 50 MG/SENNA 8.6 MG TAB PO SCH ×2 (09:00→20:43)
[2017-06-20] MEDS: SPIRONOLACTONE 25 MG TAB PO SCH (09:00)
[2017-06-20] MEDS: FAMOTIDINE 20 MG TAB PO SCH ×2 (09:00→20:38)
[2017-06-20] MEDS: SODIUM CHLOR 0.9% 1000 ML INJ 1,000 ML IV SCH (09:00)
[2017-06-20] MEDS: LISINOPRIL 20 MG TAB PO SCH ×2 (09:00→20:39)
[2017-06-20] MEDS: FLUTICASONE PROPIONATE 50 MCG/ACT 16 GM NASAL SPRAY EACH NARE SCH ×2 (09:00→20:35)
[2017-06-20] MEDS: amLODIPine BESYLATE 5 MG TAB PO SCH ×2 (09:00→20:38)
[2017-06-20 09:44] LABS: BANDS 1 % (0-6); MYELOCYTES 1 % (0-0); NEUTROPHIL # MANUAL DIFF 13.9 TH/MM3 (1.8-7.7); POLYS (SEG NEUTROPHILS) 86 % (16-70); WBC DIFF SAMPLE 100
[2017-06-20 09:45] LABS: PLATELET ESTIMATE SMEAR NORMAL (NORMAL); PLATELET MORPHOLOGY NORMAL (NORMAL); SCAN/DIFF FINAL DIFF MANUAL
[2017-06-20 11:58] LABS: CSF LYMPHOCYTES 7 %; CSF MONOCYTES 7 %; CSF NEUTROPHILS 87 %
[2017-06-20 11:59] LABS: WBC TUBE #1 7 /MM3 (0-10)
[2017-06-20 12:01] LABS: GROSS BLOOD TUBE #1 TRACE (0); SUPERNATE COLOR TUBE #1 CLEAR (CLEAR); VOLUME TUBE # 1 1.5 ML
[2017-06-20] MEDS ORDERED: ePHEDrine/NS 25 MG/5 ML SYR IV ONE (12:24)
[2017-06-20] MEDS ORDERED: VECURONIUM BROMIDE 20 MG VIAL IV ONE (12:24)
[2017-06-20] MEDS ORDERED: SODIUM CHLORIDE 0.9% 20 ML VIAL IV ONE (12:24)
[2017-06-20] MEDS ORDERED: DEXAMETHASONE SOD PHOS 4 MG/ML VIAL IV ONE (12:24)
[2017-06-20] MEDS ORDERED: MIDAZOLAM HCL 2 MG/2 ML VIAL IV ONE (12:24)
[2017-06-20] MEDS ORDERED: PROPOFOL 200 MG/20 ML AMP IV ONE (12:24)
[2017-06-20] MEDS ORDERED: ROCURONIUM INJ 50 MG/5 ML SYRINGE IV PUSH ONE (12:24)
[2017-06-20] MEDS ORDERED: LIDOCAINE HCL 1% PF 5 ML AMPULE OTHER ONE (12:24)
[2017-06-20] MEDS ORDERED: GLYCOPYRROLATE 1 MG/5 ML SYRINGE IV PUSH ONE (12:24)
[2017-06-20] MEDS ORDERED: PHENYLEPH/NS 1000 MCG/10 ML SYR IV ONE (12:24)
[2017-06-20] MEDS ORDERED: SODIUM CHLORID 0.9% 500 ML INJ 500 ML IV ONE (13:34)
[2017-06-20] MEDS ORDERED: LACTATED RINGER'S 1000 ML INJ 1,000 ML IV ONE (13:34)
[2017-06-20] MEDS ORDERED: SODIUM CHLOR 0.9% 250 ML INJ 250 ML IV ONE (13:34)
[2017-06-20] MEDS ORDERED: NORMOSOL R INJ 1,000 ML IV ONE (13:34)
[2017-06-20 13:49] LABS: BLOOD GAS BASE EXCESS -3.9 mmol/L (-2-2); BLOOD GAS CARBOXYHEMOGLOBIN 1.4 % (0-4); BLOOD GAS HCO3 20 mmol/L (22-26); BLOOD GAS METHEMOGLOBIN 1.2 % (0-2); BLOOD GAS O2 HGB SATURATION 97 % (90-100); BLOOD GAS OXYGEN CONTENT 17.8 Vol % (12.0-20.0); BLOOD GAS PCO2 31 mmHg (38-42); BLOOD GAS PO2 227 mmHg (61-120); BLOOD GAS TOTAL HGB 12.7 G/DL (12.0-16.0); CRITICAL VALUE NO; FIO2 54 %; OXYGEN DEVICE OR; STAT YES; TEMP CORR TO 98.6
[2017-06-20] MEDS ORDERED: DEXMEDETOMIDINE HCL 200 MCG/2 ML VIAL ONE (14:18)
[2017-06-20] MEDS ORDERED: SUGAMMADEX SODIUM 200 MG/2 ML VIAL IV PUSH ONE ×2 (14:18)
[2017-06-20] MEDS ORDERED: ONDANSETRON HCL 4 MG/2 ML VIAL IV PRN (15:45)
[2017-06-20] MEDS ORDERED: MAGNESIUM SULFATE INJ 4 GM in SODIUM CHLORIDE 0.9% INJ 100 ML IV PRN (15:45)
[2017-06-20] MEDS ORDERED: POTASSIUM CHLOR 20 MEQ PREMIX 100 ML IV PRN (15:45)
[2017-06-20] MEDS ORDERED: SODIUM CHLORIDE 0.9% FLUSH 5 ML FLUSH IVF PRN (15:45)
[2017-06-20] MEDS ORDERED: MORPHINE SULFATE 4 MG/ML INJ IV PUSH PRN (15:45)
[2017-06-20] MEDS ORDERED: CALCIUM GLUCONATE 10% 1 GM/10 ML VIAL IV PRN (15:45)
[2017-06-20] MEDS ORDERED: BISACODYL 10 MG SUPP RECTAL PRN (15:45)
[2017-06-20] MEDS: NS + KCL 20 MEQ INJ 1,000 ML IV SCH (16:20)
[2017-06-20] MEDS ORDERED: DO NOT ADM ANY ANTICOAGULANT DRUGS PRN (16:30)
--- NOTE | 2017-06-20 16:34 | RADRPT ---
EXAM DATE/TIME: 06/20/2017 15:56 [facility] COMPARISON: CHEST SINGLE AP, June 17, 2017, 17:00. INDICATIONS : Right central line placement. MEDICAL HISTORY : Hypertension. Carcinoma, prostatic. Seizures SURGICAL HISTORY : None. ENCOUNTER: Initial ACUITY: 3 days PAIN SCORE: Non-responsive. LOCATION: Bilateral chest FINDINGS: The exam demonstrates a small left basilar effusion this is new compared to previous. The heart is en larged. The right lung is clear. The osseous structures are intact. CONCLUSION: 1. Left basilar effusion and atelectasis new when compared to previous Jak Linares MD on June 20, 2017 at 16:30 Board Certified Radiologist. This report was verified electronically.
--- NOTE | 2017-06-20 16:44 | PD.OP ---
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 Risks and potential complications include, but are not limited to, infection, blood loss, CSF leak, partial or complete loss of sight in one or both eyes, paresis, paralysis, permanent pain or difficulty swallowing, loss of bowel or bladder function, complications from anesthesia, blood clot, stroke, myocardial infarction, or even . DETAILS OF THE SURGICAL PROCEDURE The right frontal area was shaved, prepped and draped in the usual sterile fashion. An entry point was selected 90 millimeters posterior to the supraorbital rim and 25 millimeters from the midline. The area was infiltrated with 1% lidocaine with epinephrine. A skin incision was made with a #15 blade down to the level of the periosteum. Using a TPS drill and [place] drill bit a tee hole was made. The dura was carefully opened with a brain needle and a ventriculostomy catheter was advanced into the ventricular system. At a depth of 60 millimeters, cerebrospinal fluid was obtained. Opening pressure was 20 centimeters of water. A specimen of cerebrospinal fluid was collected and sent to the lab for analysis of the glucose, protein, cell count and cultures. The catheter was then tunneled under the galea and externalized through a separate stab incision. The incision was closed with 3-0 nylon in a single plane. The patient tolerated the procedure well. COMPLICATIONS There were no intraoperative complications. BLOOD LOSS Blood loss was minimal. Steven Hunter MD Jun 20, 2017 16:44
--- NOTE | 2017-06-20 17:00 | PD.OP ---
Operative Report Date of Surgery: Jun 20, 2017 Preoperative Diagnosis: Fourth ventricle hemorrhagic mass Postoperative Diagnosis: Fourth ventricle hemorrhagic mass. Ependymoma Procedure: Stereotactic, image-guided suboccipital craniectomy, C1 laminectomy, microsurgical resection of fourth ventricle ependymoma. 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 The patient and his family fully understood. All their questions were answered. No guaranties were given. He voiced requesting the procedure and signed informed consents. They were offered the possibility of delaying the procedure and continued nonoperative treatment. I have discussed the details including the [id number] details of the surgical procedure, its indications, alternatives, risks, and potential complications. Risks and potential complications include, but are not limited to, infection, blood loss, CSF leak, partial or complete loss of sight in one or both eyes, paresis, paralysis, permanent pain or difficulty swallowing, loss of bowel or bladder function, complications from anesthesia, blood clot, stroke, myocardial infarction, or even . DETAILS OF THE SURGICAL PROCEDURE Prior to the surgery the patient underwent MRI of the brain according to the stereotactic protocol. The information was transferred to the workstation located in the operative suite. Preoperative registration was performed. The patient was brought into the operating room and after the induction of general endotracheal anesthesia induced without difficulty. The patient was then endotracheally intubated. A Flores catheter, bilateral ANA M hose and sequential compression devices were placed and kept throughout the procedure.. The central and arterial and other lines were established and kept thorough the procedure. The patient received Decadron, prophylactic antibiotics during the preoperative preparation. The eyes were tapped shut after ointment was applied by the anesthesiologist to prevent corneal abrasion. The patient was then positioned prone on a 30/80 table over gel rolls with the shoulders at the edge of the surgical table in a neutral position, and the head held in rigid fixation using the three point Razo header setup operator, secured to the operating room table. The patient's head was maintained above the level of the right atrium to facilitate venous return. The head was flexed to facilitate access to the suboccipital region. All pressure points were carefully padded with egg crate mattress. A Oliva hugger was placed over the exposed lower body to maintain control of the core body temperature. The electrophysiological team placed the needles and electrodes in their proper location and baseline SSEP's and BSERS evoked potentials were registered. The rigid reference body was attached to the header setup operator and intraoperative registration was performed with soft touch accredited pharmacy technician. The suboccipital area was shaved, prepped, draped in the usual sterile fashion. A paramedial incision was outlined on the skin and infiltrated with 1% lidocaine with epinephrine 1:100,000 dilution. The skin incision was made with a #10 blade. Brittanie clips were applied to the scalp and the dissection was carried out through the avascular midline down to the suboccipital bone. Self retaining cerebellar retractors were placed on the incision Using the TPS drill , the suboccipital bone was thinned using a 6mm A corn drill bit, until a paper like layer of bone waas left. this was carefully elevated with a #3 [place] dissector. The superior part of the arch of C1 was carefully expossed and removed and partial laminectomy of C1 was performed with extreme care to preserve and not injure the vertebral artery. At this point in the procedure, the operating microscope was draped in the usual sterile fashion and brought to the field. The rest of the procedure was performed using microdissection technique with exception of the final closure. Under the operative microscope, dura was carefully opened with a 15 blade and [place] sissors and tacked to the surrounding fascia using 4-0 Nurolon sutures. Using microbipolar, microscissors, micro retractors, microforceps, and microsurgical dissection technique, the approach to the tumor was initiated as guided by the brain lab accredited pharmacy technician. The most caudal piortion of the tumor was visible, extending into the cisterna Magna. The cisterna magna was carefully opened allowing for CSF drainage. The tumor was readily identified and a specimen was sent for frozen section which was reported. Using microsurgical dissection technique with the micro dissection bipolar, and microscissors, resection of the tumor was carried out. A frozen section specimen was reported as cvonsistent with ependymoma. A specimen was sent to the lab for permanent histological analysis. The inferior cerebellar vermis was splitted allowing for approach to the fourth ventricle. A gross total resection was achieved. Careful inspection did not revealed obvious residual neoplasm. Hemostasis was performed in the cavity of the tumor using a bipolar forceps. Excellent hemostasis was achieved and the cavity was filled with thrombin spray. A duramatter graft was brought to the field and carefully shapped to fir the dural region. The dural patch was then brought to the field and the dura was carefully reconstructed in a watertight fashion using 6-0 Prolene suture. The dural closure was then reinforced using Duragen and Tisseel fibrin glue. The suboccipital incision was then closed in multiple layers using 0 Vicryl suture and 3-0 Vicryl sutures were used to close the galea. The skin was closed with running 3-0 nylon. At the end of the procedure, the sponge, needle, and instrument counts were all correct. Estimated blood loss was less than 150 cc, no blood transfusion was given, no intraoperative complications occurred. The patient received preoperative prophylactic antibiotics. The patient was then transferred to the recovery room in a stable condition. Steven Hunter MD Jun 20, 2017 17:00
--- NOTE | 2017-06-20 17:22 | HHI.CCPN ---
Subjective Remarks/Hospital Course 06/17: 67-year-old male . Date of admission 06/17/2017. Past medical history includes hypertension. His presenting complaint the hospital was vertigo. He' s been having vertigo for about 4 weeks but is getting progressively worse. The vertigo is aggravated by movement of the head by standing.. Symptomatology occurring worse last couple of days has been quite severe. He's having a headache behind both of his eyes. He says he is unable to stand without falling over. He has a history of prostate cancer and has had a radical prostatectomy. He says he has had urinary tract infections since then. He has had multiple surgeries including multiple orthopedic procedures as well as appendectomy and hernia. He was diagnosed with an ear infection and has been on doxycycline for 2 weeks. 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 Dr. Hunter was contacted. Recommended dexamethasone 4 mg IV every 6 hours with surgical evaluation in AM. Patient remained quite hypertensive. Was started on a [place] proximal drip. Patient pointed diffuse headache [address] brain revealed small focal hemorrhagic component was left 9 x 15 mm. 06/18: Sitting up in bed. Feels much better today. Still has some headache. Denies any nausea currently. No dizziness if he stays still. Wishes to eat. Blood pressure better controlled. 06/20: S/P suboccipital craniectomy, C1 laminectomy, microsurgical resection of fourth ventricle ependymoma. Sleepy but conversant. Controls airway well. Objective Vital Signs Date Time Temp Pulse Resp B/P (MAP) Pulse Ox O2 Delivery O2 Flow Rate FiO2 06/20/17 16:30 98.0 69 18 133/74 (93) 97 Nasal Cannula 3 06/18/17 10:35 21 Intake and Output 06/20/17 06/20/17 06/21/17 08:00 16:00 00:00 Intake Total 240 ml 2500 ml 5 ml Output Total 1675 ml 1150 ml 7 ml Balance -1435 ml 1350 ml -2 ml Result Diagram: 06/20/17 0700 06/20/17 0700 Other Results Laboratory Tests Test 06/20/17 13:37 Blood Gas Puncture Site DRAWN IN OR Blood Gas Patient Temperature 98.6 Blood Gas HCO3 20 mmol/L (22-26) Blood Gas Base Excess -3.9 mmol/L (-2-2) Blood Gas Oxygen Saturation 97 % (90-100) Arterial Blood pH 7.43 (7.380-7.420) Arterial Blood Partial Pressure CO2 31 mmHg (38-42) Arterial Blood Partial Pressure O2 227 mmHg (61-120) Arterial Blood Oxygen Content 17.8 Vol % (12.0-20.0) Arterial Blood Carboxyhemoglobin 1.4 % (0-4) Arterial Blood Methemoglobin 1.2 % (0-2) Blood Gas Hemoglobin 12.7 G/DL (12.0-16.0) Oxygen Delivery Device OR Blood Gas Inspired Oxygen 54 % Imaging Last Impressions Brain MRI 06/17/17 1134 Signed Impressions: Service Date/Time: Saturday, June 17, 2017 13:16 - CONCLUSION: 1. There is a mass measuring 1.6 x 3.3 x 2.4 cm which fills the fourth ventricle. This is isointense on the T1-weighted images. There is heterogeneous enhancement. Primary differential considerations include ependymoma/subependymoma versus choroid plexus papilloma/carcinoma. Jak Linares MD Chest X-Ray 06/17/17 0000 Signed Impressions: Service Date/Time: Saturday, June 17, 2017 17:00 - CONCLUSION: No acute disease. Hamilton Stacy MD Objective Remarks GENERAL: 67-year-old male, critically ill currently resting in bed SKIN: Warm and dry. HEAD: Atraumatic. Normocephalic. EYES: Pupils equal and round about 2 mm. No scleral icterus. No injection or drainage. ENT: No nasal bleeding or discharge. Mucous membranes pink and moist. NECK: Trachea midline. Airway widely patent. CARDIOVASCULAR: RRR. S1, S2 no S4. RESPIRATORY: No accessory muscle use. Clear to auscultation. Breath sounds equal bilaterally. No adventitious sounds. GASTROINTESTINAL: Abdomen soft, non-tender, nondistended. MUSCULOSKELETAL: Extremities without drift and peripheral edema. No obvious deformities. NEUROLOGICAL: Lethargic, cooperative. No obvious cranial nerve deficits. Motor grossly within normal limits. Five out of 5 muscle strength in the arms and legs. Date of Insertion: Jun 18, 2017 Line: Central Venous Catheter Side: Right Location: Internal, Jugular A/P Assessment and Plan Neuro/Psych: Fourth ventricle enlargement/mass Headaches NOS MRI brain 06/17 revealed a 1.6 3.3 x 2.4 cm mass arising from the epidemic. Differential includes ependymoma, choroid plexus papilloma versus other Dr. Hunter/neurosurgery evaluation. Dr. Hunter not planning immediate surgical intervention in view of question of blood around the lesion. Dexamethasone 4 mg IV every 6 hours scheduled. Acetaminophen 650 mg every 6 hours when necessary pain 1 through 2/fever greater than 100 Hydromorphone 0.2-0.5 mg every 4 hours when necessary pain 3-10. Patient states he has taken this before. Noted allergies to hydrocodone and oxycodone. CT brain revealed 9 x 15 mm focal hemorrhagic component.. See below for blood pressure modification. Discussed with Dr. Hunter. No new plans overnight unless decompensation. resection 4th ventricle mass 06/20 CV: Hypertension Home medications include nebivolol 10 mg a night, increase amlodipine from 2.5mg to 5 mg twice a day , continue lisinopril 40 mg by mouth twice a day. These been continued with holding parameters for nebivolol for heart rate Continued spironolactone 25 mg by mouth twice a day Off Clevidipine drip. Clonidine when necessary. As needed Nitropaste/hydralazine to keep systolic blood pressure was 140 Resp: Nasal cannula to maintain saturations greater than equal to 92% Incentive spirometry while awake As needed albuterol/ipratropium aerosols every 4 hours when necessary dyspnea Chest x-ray 06/17 revealed no acute findings GI: Advance by mouth for K with neurosurgery. Famotidine for GI prophylaxis Docusate sodium/Senokot 1 tablet twice a day for bowel regimen : Cystitis History of prostate cancer status post prostatectomy Flores catheter not indicated currently Endo: Hyperglycemia Sliding-scale insulin to maintain euglycemia Renal: Creatinine currently within normal limits Monitor urine output Accurate I's and O's Currently normal saline at 84 cc an hour Heme: Leukocytosis Monitor CBC daily. Follow trends. Follow-up on [facility] ID: Uncomplicated cystitis We'll treat with 3 days aztreonam 1 g IV every 12 hours. Cultures pending Discontinue doxycycline FEN: Replace electrolytes as clinically indicated MSK: PT OT evaluate and treat Access - Utilize peripheral IV. Central line if indicated Prophylaxis - GI - famotidine - DVT - SCD/holding pharmacological prophylaxis for likely surgical intervention within 24 hours Overall impression: Embolization of vascular supply of the tumor followed by surgery today. Stable hemodynamics and respiratory status. Lei Swartz MD Jun 20, 2017 17:22
[2017-06-20] MEDS: MORPHINE SULFATE 4 MG/ML INJ IV PUSH PRN ×2 (17:31→20:35)
[2017-06-20] MEDS: MANNITOL 12.5 GM/50 ML VIAL IV SCH (18:00)
[2017-06-20] MEDS: niCARdipine 25 MG/NS 250 ML Vial2Bag or IV room IV PRN ×2 (20:05)
[2017-06-20] MEDS: VANCOMYCIN INJ 1,000 MG in SODIUM CHLOR 0.9% 250 ML INJ 250 ML IV SCH (20:33)
[2017-06-20] MEDS: SODIUM CHLORIDE 0.9% FLUSH 5 ML FLUSH IVF SCH (20:33)
[2017-06-20] MEDS: NEBIVOLOL 10 MG TAB PO SCH (20:37)
[2017-06-20] MEDS: DOCUSATE SODIUM 100 MG CAP PO SCH (20:43)
[2017-06-20] MEDS: HYDROmorphone HCL PF 1 MG/ML VIAL IV PUSH PRN (22:41)
[2017-06-21] VITALS (12 sets, daily range): BP systolic 108–164; BP diastolic 62–78; PULSE 50–84; RESP 12–20; TEMP 97.7–99.2; O2SAT 93–97
[2017-06-21] MEDS: niCARdipine 25 MG/NS 250 ML Vial2Bag or IV room IV PRN ×8 (00:23→08:17)
[2017-06-21] MEDS: hydrALAZINE HCL 20 MG/ML VIAL IV PUSH PRN ×2 (01:13→21:37)
[2017-06-21] MEDS: NS + KCL 20 MEQ INJ 1,000 ML IV SCH ×3 (02:00→22:00)
[2017-06-21] MEDS: HYDROmorphone HCL PF 1 MG/ML VIAL IV PUSH PRN ×7 (02:47→23:43)
[2017-06-21] MEDS: CHLORHEXIDINE GLUCONATE 2 % 1 PACK (2 CLOTHS) TOP SCH (04:00)
[2017-06-21] MEDS: DEXAMETHASONE SOD PHOS 4 MG/ML VIAL IV PUSH SCH ×4 (04:06→21:36)
--- NOTE | 2017-06-21 05:10 | RADRPT ---
EXAM DATE/TIME: 06/21/2017 04:34 [place] COMPARISON: CT BRAIN W/O CONTRAST, June 17, 2017, 19:19. INDICATIONS : Post craniotomy RADIATION DOSE: 56.68 CTDIvol (mGy) MEDICAL HISTORY : Hypertension. Seizures. SURGICAL HISTORY : Craniotomy. ENCOUNTER: Initial ACUITY: 1 day PAIN SCALE: 4/10 LOCATION: cranial TECHNIQUE: Multiple contiguous axial images were obtained of the head. Using automated exposure control and adj ustment of the mA and/or kV according to patient size, radiation dose was kept as low as reasonably a chievable to obtain optimal diagnostic quality images. DICOM format image data is available electro nically for review and comparison. FINDINGS: CEREBRUM: Intraventricular, subdural and subarachnoid air is identified in associated with the recent surgical intervention. There is some interventricular blood posteriorly in the one caveat lateral ventricles w ith some hemorrhage also seen in the body of the left lateral ventricle. Intraventricular drain near the third ventricle without hydrocephalus. POSTERIOR FOSSA: Interval suboccipital craniectomy with resection of the mass lesion near the fourth ventricle. 7 mm a kimmie of increased density persists it could represent a small tumor residual. Fourth ventricle now tre ears to be widely patent, however. EXTRACRANIAL: The visualized portion of the orbits is intact. SKULL: Suboccipital craniectomy. CONCLUSION: 1. Suboccipital craniectomy with interval resection of the mass lesion near the fourth ventricle. 2. There is a 7 mm area of spontaneous increased density adjacent to the fourth ventricle on the left which may represent a small tumor residual. 3. Expected intraventricular blood with some intraventricular, subarachnoid and subdural air characte ristic of the recent surgical intervention. 4. Intraventricular shunt/drain near the third ventricle without hydrocephalus. Meir Welsh MD on June 21, 2017 at 5:03 Board Certified Radiologist. This report was verified electronically.
[2017-06-21 06:19] LABS: AUTOMATED NEUTROPHIL # 15.5 TH/MM3 (1.8-7.7); BASOPHIL % 0.1 % (0.0-2.0); HEMATOCRIT 36.2 % (39.0-51.0); HEMO FLAGS DIFF FINAL; LYMPH % 3.6 % (9.0-44.0); LYMPHOCYTE # 0.6 TH/MM3 (1.0-4.8); MEAN CELL VOLUME 92.7 FL (80.0-100.0); MEAN CORPUSCULAR HEMOGLOBIN 30.6 PG (27.0-34.0); MONO % 9.3 % (0.0-8.0); PLATELET COUNT 184 TH/MM3 (150-450); RED CELL DISTRIBUTION WIDTH 14.2 % (11.6-17.2); WHITE BLOOD COUNT 17.8 TH/MM3 (4.0-11.0)
[2017-06-21 06:37] LABS: BICARBONATE 24.6 MEQ/L (21.0-32.0); POTASSIUM 4.1 MEQ/L (3.5-5.1)
[2017-06-21] MEDS: MANNITOL 12.5 GM/50 ML VIAL IV SCH ×4 (07:00→18:00)
[2017-06-21] MEDS: FAMOTIDINE 20 MG TAB PO SCH ×2 (08:17→19:52)
[2017-06-21] MEDS: amLODIPine BESYLATE 5 MG TAB PO SCH ×2 (08:18→19:53)
[2017-06-21] MEDS: DOCUSATE SODIUM 50 MG/SENNA 8.6 MG TAB PO SCH ×2 (08:18→19:53)
[2017-06-21] MEDS: LISINOPRIL 20 MG TAB PO SCH ×2 (08:18→19:53)
[2017-06-21] MEDS: ACETAMINOPHEN 325 MG TAB PO PRN (08:18)
[2017-06-21] MEDS: PANTOPRAZOLE SODIUM 40 MG VIAL IVP SCH (08:18)
[2017-06-21] MEDS: SODIUM CHLORIDE 0.9% FLUSH 5 ML FLUSH IVF SCH ×2 (08:18→19:54)
[2017-06-21] MEDS: SPIRONOLACTONE 25 MG TAB PO SCH (08:18)
[2017-06-21] MEDS: VANCOMYCIN INJ 1,000 MG in SODIUM CHLOR 0.9% 250 ML INJ 250 ML IV SCH (08:30)
[2017-06-21] MEDS: DOCUSATE SODIUM 100 MG CAP PO SCH ×2 (08:30→19:53)
[2017-06-21] MEDS: INSULIN NovoLIN REGULAR SUPPLEMENTAL SCALE SQ SCH ×4 (08:57→20:11)
[2017-06-21] MEDS: FLUTICASONE PROPIONATE 50 MCG/ACT 16 GM NASAL SPRAY EACH NARE SCH ×2 (09:00→19:54)
--- NOTE | 2017-06-21 09:03 | HHI.NSPN ---
(Chucho Calderon) History Chief Complaint: Pain (Chucho Calderon) Interval History This is a 67-year-old male with history of arterial hypertension and prostate Ca. He present to the [facility] ER with vertigo. He's been having vertigo for about 4 weeks but is getting progressively worse. The vertigo is aggravated by movement of the head by standing.. It has been worse last couple of days, it has been quite severe. He's having a headache behind both of his eyes. He says he is unable to stand without falling over. He has a history of prostate cancer and has had a radical prostatectomy. He says he has had recurrent urinary tract infections. He has had multiple surgeries including multiple orthopedic procedures as well as appendectomy and hernia. He was diagnosed with an ear infection and has been treated with doxycycline for 2 weeks. MRI of the brain revealed a 1.6 x 3.3 x 2.4 cm mass arising from the fourth ventricle with ventricular enlargement.He was placed dexamethasone 4 mg IV every 6 hours He has been hypertensive. He reports diffuse headaches [address] brain revealed small focal hemorrhagic component was left 9 x 15 mm. Neurosurgical consultation was requested 06/19: awaiting cerebral angiography today. no new neurological complaints. 06/21: s/p Stereotactic, image-guided suboccipital craniectomy, C1 laminectomy, microsurgical resection of fourth ventricle ependymoma. Microsurgical dissection by Dr. Hunter on 06/20. Patient awake and alert. Received morphine last night which reportedly made him very agitated and restless. This was changed to Dilaudid and he is less restless. Complains of headache. No nausea or vomiting. No numbness or paresthesias in the extremities. Ventriculostomy drain is in place at 3 cm of H2O. (Chucho Calderon) Review of Systems General: Negative for: fever, chills, insomnia Respiratory: Negative for: shortness of breath, cough, sputum Cardiovascular: Negative for: chest pain Gastrointestinal: Negative for: nausea, vomitting, diarrhea, constipation ( Chucho Calderon) Exam Results Vital Signs Date Time Temp Pulse Resp B/P (MAP) Pulse Ox O2 Delivery O2 Flow Rate FiO2 06/21/17 08:17 61 134/65 06/21/17 07:00 94 Room Air 06/21/17 04:00 98.7 20 06/20/17 19:00 2.00 06/18/17 10:35 21 Intake and Output 06/21/17 06/21/17 06/22/17 08:00 16:00 00:00 Intake Total 1660 ml Output Total 1640 ml Balance 20 ml (Chucho Calderon) Physical Examination Resp: CTA bilaterally Heart: NSR no murmurs Abd: Soft positive bs Skin: No signs of infection at incision. Muscle: Moves all 4 extremities with good strength. Neuro: Pt awake and alert. Follows commands. Speech clear with some agitation. Ventriculostomy drain in place at 3cm H20. ICP not being monitored per RN. (Chucho Calderon) Lab, Micro, Other Results Last Impressions Head CT 06/21/17 0600 Signed Impressions: Service Date/Time: Wednesday, June 21, 2017 04:34 - CONCLUSION: 1. Suboccipital craniectomy with interval resection of the mass lesion near the fourth ventricle. 2. There is a 7 mm area of spontaneous increased density adjacent to the fourth ventricle on the left which may represent a small tumor residual. 3. Expected intraventricular blood with some intraventricular, subarachnoid and subdural air characteristic of the recent surgical intervention. 4. Intraventricular shunt/drain near the third ventricle without hydrocephalus. Meir Welsh MD Chest X-Ray 06/20/17 1537 Signed Impressions: Service Date/Time: Tuesday, June 20, 2017 15:56 - CONCLUSION: 1. Left basilar effusion and atelectasis new when compared to previous Jak Linares MD Cerebral Arteriogram 06/19/17 0000 Signed Impressions: Service Date/Time: June 10:38 - CONCLUSION: The exam demonstrates questionable, faint visualization of the lesion on the capillary phase imaging with injection of the right vertebral. This appears to feed via the right PICA. For the most part, this lesion appears hypovascular. Jak Linares MD Brain MRI 06/19/17 0000 Signed Impressions: Service Date/Time: June 17:37 - CONCLUSION: [facility] protocol for purposes of localizing the known fourth ventricle mass. The lesion measures approximately 19 x 22 x 33 mm and has heterogeneous enhancement. Joe Smith MD Chest CT 06/18/17 0000 Signed Impressions: Service Date/Time: Sunday, June 18, 2017 16:54 - CONCLUSION: Negative for primary or metastatic disease. Lg Linares MD FACR Abdomen/Pelvis CT 06/18/17 0000 Signed Impressions: Service Date/Time: Sunday, June 18, 2017 16:54 - CONCLUSION: 1. Possible mass of the cecum. If not done recently, attempted direct visualization with colonoscopy recommended. 2. Previous prostatectomy. 3. No evidence of bony metastatic disease. 4. Patchy cortical thinning/scarring of both kidneys. No obstructive uropathy. Joe Smith MD Laboratory Tests Test 06/20/17 10:00 06/20/17 13:37 06/20/17 17:45 06/20/17 22:50 CSF Volume (Tube 1) 1.5 ML CSF Supernatant Color (tube 1) CLEAR CSF Gross Blood (Tube 1) TRACE CSF WBC (Tube 1) 7 /MM3 CSF RBC (Tube 1) 1105 /MM3 CSF Neutrophils 87 % CSF Lymphocytes 7 % CSF Monocytes 7 % CSF Differential Comment CSF Glucose 150 MG/DL CSF Total Protein 23.2 MG/DL Blood Gas Puncture Site DRAWN IN OR Blood Gas Patient Temperature 98.6 Blood Gas HCO3 20 mmol/L Blood Gas Base Excess -3.9 mmol/L Blood Gas Oxygen Saturation 97 % Arterial Blood pH 7.43 Arterial Blood Partial Pressure CO2 31 mmHg Arterial Blood Partial Pressure O2 227 mmHg Arterial Blood Oxygen Content 17.8 Vol % Arterial Blood Carboxyhemoglobin 1.4 % Arterial Blood Methemoglobin 1.2 % Blood Gas Hemoglobin 12.7 G/DL Oxygen Delivery Device OR Blood Gas Inspired Oxygen 54 % Sodium Level 139 MEQ/L 141 MEQ/L Serum Osmolality 306 MOSM/KG 304 MOSM/KG Test 06/21/17 05:59 White Blood Count 17.8 TH/MM3 Red Blood Count 3.90 MIL/MM3 Hemoglobin 11.9 GM/DL Hematocrit 36.2 % Mean Corpuscular Volume 92.7 FL Mean Corpuscular Hemoglobin 30.6 PG Mean Corpuscular Hemoglobin Concent 33.0 % Red Cell Distribution Width 14.2 % Platelet Count 184 TH/MM3 Mean Platelet Volume 8.7 FL Neutrophils (%) (Auto) 87.0 % Lymphocytes (%) (Auto) 3.6 % Monocytes (%) (Auto) 9.3 % Eosinophils (%) (Auto) 0.0 % Basophils (%) (Auto) 0.1 % Neutrophils # (Auto) 15.5 TH/MM3 Lymphocytes # (Auto) 0.6 TH/MM3 Monocytes # (Auto) 1.7 TH/MM3 Eosinophils # (Auto) 0.0 TH/MM3 Basophils # (Auto) 0.0 TH/MM3 CBC Comment DIFF FINAL Differential Comment Blood Urea Nitrogen 26 MG/DL Creatinine 0.99 MG/DL Random Glucose 207 MG/DL Calcium Level 8.4 MG/DL Sodium Level 141 MEQ/L Potassium Level 4.1 MEQ/L Chloride Level 107 MEQ/L Carbon Dioxide Level 24.6 MEQ/L Anion Gap 9 MEQ/L Estimat Glomerular Filtration Rate 76 ML/MIN Serum Osmolality 307 MOSM/KG (Chucho Calderon) Medical Decision Making Impression and Plan A: 67 y/o male with fourth ventricle mass with surrounding hemorrhage s/p Stereotactic, image-guided suboccipital craniectomy, C1 laminectomy, microsurgical resection of fourth ventricle ependymoma. Microsurgical dissection on 06/20/17. P: Continue with pain control Continue with ventriculostomy drain continue with neuro checks (Chucho Calderon) Attending Statement The exam, history, and the medical decision-making described in the above note were completed with the assistance of the mid-level provider. I reviewed and agree with the findings presented. I attest that I had a [id number] encounter with the patient on the same day, and personally performed and documented my assessment and findings in the medical record. Stable post op ct head. Increase ventric level to 10 cm. Updated . (Rigoberto Chiu MD) Chucho Calderon Jun 21, 2017 09:03 Rigoberto Chiu MD Jun 21, 2017 14:23
[2017-06-21] MEDS: SODIUM CHLORID 0.9% IV PRN ×2 (13:06→23:42)
[2017-06-21] MEDS: NICARDIPINE IV PRN ×2 (13:06→23:42)
--- NOTE | 2017-06-21 17:32 | HHI.CCPN ---
Subjective Remarks/Hospital Course 06/17: 67-year-old male . Date of admission 06/17/2017. Past medical history includes hypertension. His presenting complaint the hospital was vertigo. He' s been having vertigo for about 4 weeks but is getting progressively worse. The vertigo is aggravated by movement of the head by standing.. Symptomatology occurring worse last couple of days has been quite severe. He's having a headache behind both of his eyes. He says he is unable to stand without falling over. He has a history of prostate cancer and has had a radical prostatectomy. He says he has had urinary tract infections since then. He has had multiple surgeries including multiple orthopedic procedures as well as appendectomy and hernia. He was diagnosed with an ear infection and has been on doxycycline for 2 weeks. 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 Dr. Hunter was contacted. Recommended dexamethasone 4 mg IV every 6 hours with surgical evaluation in AM. Patient remained quite hypertensive. Was started on a [place] proximal drip. Patient pointed diffuse headache [address] brain revealed small focal hemorrhagic component was left 9 x 15 mm. 06/18: Sitting up in bed. Feels much better today. Still has some headache. Denies any nausea currently. No dizziness if he stays still. Wishes to eat. Blood pressure better controlled. 06/20: S/P suboccipital craniectomy, C1 laminectomy, microsurgical resection of fourth ventricle ependymoma. Sleepy but conversant. Controls airway well. 06/21: Alert, conversant. Protects airway well, swallows well. Objective Vital Signs Date Time Temp Pulse Resp B/P (MAP) Pulse Ox O2 Delivery O2 Flow Rate FiO2 06/21/17 16:00 98.3 54 18 127/68 (87) 96 156/68 (97) 06/21/17 07:00 Room Air 06/20/17 19:00 2.00 06/18/17 10:35 21 Intake and Output 06/21/17 06/21/17 06/22/17 08:00 16:00 00:00 Intake Total 1660 ml 1625 ml Output Total 1640 ml Balance 20 ml 1625 ml Result Diagram: 06/21/17 0559 06/21/17 1100 Imaging Last Impressions Brain MRI 06/17/17 1134 Signed Impressions: Service Date/Time: Saturday, June 17, 2017 13:16 - CONCLUSION: 1. There is a mass measuring 1.6 x 3.3 x 2.4 cm which fills the fourth ventricle. This is isointense on the T1-weighted images. There is heterogeneous enhancement. Primary differential considerations include ependymoma/subependymoma versus choroid plexus papilloma/carcinoma. Jak Linares MD Chest X-Ray 06/17/17 0000 Signed Impressions: Service Date/Time: Saturday, June 17, 2017 17:00 - CONCLUSION: No acute disease. Hamilton Stacy MD Objective Remarks GENERAL: 67-year-old male, currently resting in bed SKIN: Warm and dry. HEAD: Atraumatic. Normocephalic. EYES: Pupils equal and round about 2 mm. No scleral icterus. No injection or drainage. ENT: No nasal bleeding or discharge. Mucous membranes pink and moist. NECK: Trachea midline. Airway widely patent. CARDIOVASCULAR: RRR. S1, S2 no S4. RESPIRATORY: No accessory muscle use. Clear to auscultation. Breath sounds equal bilaterally. No adventitious sounds. GASTROINTESTINAL: Abdomen soft, non-tender, nondistended. BS active. MUSCULOSKELETAL: Extremities without drift and peripheral edema. No obvious deformities. NEUROLOGICAL: Alert, cooperative. No obvious cranial nerve deficits. Motor grossly within normal limits. Five out of 5 muscle strength in the arms and legs. Date of Insertion: Jun 18, 2017 Line: Central Venous Catheter Side: Right Location: Internal, Jugular A/P Assessment and Plan Neuro/Psych: Fourth ventricle enlargement/mass Headaches NOS MRI brain 06/17 revealed a 1.6 3.3 x 2.4 cm mass arising from the epidemic. Differential includes ependymoma, choroid plexus papilloma versus other Dr. Hunter/neurosurgery evaluation. Dr. Hunter not planning immediate surgical intervention in view of question of blood around the lesion. Dexamethasone 4 mg IV every 6 hours scheduled. Acetaminophen 650 mg every 6 hours when necessary pain 1 through 2/fever greater than 100 Hydromorphone 0.2-0.5 mg every 4 hours when necessary pain 3-10. Patient states he has taken this before. Noted allergies to hydrocodone and oxycodone. CT brain revealed 9 x 15 mm focal hemorrhagic component.. See below for blood pressure modification. Discussed with Dr. Hunter. No new plans overnight unless decompensation. resection 4th ventricle mass 06/20 CV: Hypertension Home medications include nebivolol 10 mg a night, increase amlodipine from 2.5mg to 5 mg twice a day , continue lisinopril 40 mg by mouth twice a day. These been continued with holding parameters for nebivolol for heart rate Continued spironolactone 25 mg by mouth twice a day Off Clevidipine drip. Clonidine when necessary. As needed Nitropaste/hydralazine to keep systolic blood pressure was 140 Resp: Nasal cannula to maintain saturations greater than equal to 92% Incentive spirometry while awake As needed albuterol/ipratropium aerosols every 4 hours when necessary dyspnea Chest x-ray 06/17 revealed no acute findings GI: Advance by mouth for K with neurosurgery. Famotidine for GI prophylaxis Docusate sodium/Senokot 1 tablet twice a day for bowel regimen : Cystitis History of prostate cancer status post prostatectomy Flores catheter not indicated currently Endo: Hyperglycemia Sliding-scale insulin to maintain euglycemia Renal: Creatinine currently within normal limits Monitor urine output Accurate I's and O's Currently normal saline at 84 cc an hour Heme: Leukocytosis Monitor CBC daily. Follow trends. Follow-up on coags ID: Uncomplicated cystitis We'll treat with 3 days aztreonam 1 g IV every 12 hours. Cultures pending Discontinue doxycycline FEN: Replace electrolytes as clinically indicated MSK: PT OT evaluate and treat Access - Utilize peripheral IV. Central line if indicated Prophylaxis - GI - famotidine - DVT - SCD/holding pharmacological prophylaxis for likely surgical intervention within 24 hours Overall impression: Embolization of vascular supply of the tumor followed by surgery 06/20. Stable hemodynamics and respiratory status. Lei Swartz MD Jun 21, 2017 17:32
[2017-06-21] MEDS: NEBIVOLOL 10 MG TAB PO SCH (20:10)
[2017-06-22] VITALS (13 sets, daily range): BP systolic 133–146; BP diastolic 58–70; PULSE 56–82; RESP 12–29; TEMP 97.3–101.5; O2SAT 95–98
[2017-06-22] MEDS: MANNITOL 12.5 GM/50 ML VIAL IV SCH ×4 (00:37→18:58)
[2017-06-22] MEDS: CHLORHEXIDINE GLUCONATE 2 % 1 PACK (2 CLOTHS) TOP SCH (01:21)
[2017-06-22] MEDS ORDERED: LORazepam 2 MG/ML VIAL IV PRN (04:00)
[2017-06-22] MEDS: DEXAMETHASONE SOD PHOS 4 MG/ML VIAL IV PUSH SCH ×4 (04:00→21:43)
--- NOTE | 2017-06-22 05:06 | RADRPT ---
EXAM DATE/TIME: 06/22/2017 04:20 [place] COMPARISON: CT BRAIN W/O CONTRAST, June 21, 2017, 4:34. INDICATIONS : Neuro status change; history of intraventricular mass. RADIATION DOSE: 52.13 CTDIvol (mGy) MEDICAL HISTORY : Hypertension. Carcinoma, prostate. SURGICAL HISTORY : Prostatectomy. ENCOUNTER: Subsequent ACUITY: 4 - 6 days PAIN SCALE: Non-responsive LOCATION: cranial TECHNIQUE: Multiple contiguous axial images were obtained of the head. Using automated exposure control and adj ustment of the mA and/or kV according to patient size, radiation dose was kept as low as reasonably a chievable to obtain optimal diagnostic quality images. DICOM format image data is available electro nically for review and comparison. FINDINGS: CEREBRUM: Stable appearance of the cerebrum with a ventricular shunt, pneumocephaly, intraperitoneal air and bl ood all unchanged. Ventricles remain midline. POSTERIOR FOSSA: Findings of prior surgery with resection of the previously seen fourth ventricle mass lesion and subo ccipital craniectomy. Small residual submillimeter spontaneously dense nodule is again seen left pos terior to the fourth ventricle. The 4th ventricle is midline. The cerebellopontine angle is unremark able. EXTRACRANIAL: The visualized portion of the orbits is intact. SKULL: Suboccipital craniectomy. CONCLUSION: Stable examination with postsurgical changes as detailed above. Meir Welsh MD on June 22, 2017 at 5:03 Board Certified Radiologist. This report was verified electronically.
[2017-06-22 05:39] LABS: BICARBONATE 22.2 MEQ/L (21.0-32.0)
--- NOTE | 2017-06-22 07:39 | HHI.NSPN ---
(Chucho Calderon) History Chief Complaint: Pain (Chucho Calderon) Interval History This is a 67-year-old male with history of arterial hypertension and prostate Ca. He present to the [facility] ER with vertigo. He's been having vertigo for about 4 weeks but is getting progressively worse. The vertigo is aggravated by movement of the head by standing.. It has been worse last couple of days, it has been quite severe. He's having a headache behind both of his eyes. He says he is unable to stand without falling over. He has a history of prostate cancer and has had a radical prostatectomy. He says he has had recurrent urinary tract infections. He has had multiple surgeries including multiple orthopedic procedures as well as appendectomy and hernia. He was diagnosed with an ear infection and has been treated with doxycycline for 2 weeks. MRI of the brain revealed a 1.6 x 3.3 x 2.4 cm mass arising from the fourth ventricle with ventricular enlargement.He was placed dexamethasone 4 mg IV every 6 hours He has been hypertensive. He reports diffuse headaches [address] brain revealed small focal hemorrhagic component was left 9 x 15 mm. Neurosurgical consultation was requested 06/19: awaiting cerebral angiography today. no new neurological complaints. 06/21: s/p Stereotactic, image-guided suboccipital craniectomy, C1 laminectomy, microsurgical resection of fourth ventricle ependymoma. Microsurgical dissection by Dr. Hunter on 06/20. Patient awake and alert. Received morphine last night which reportedly made him very agitated and restless. This was changed to Dilaudid and he is less restless. Complains of headache. No nausea or vomiting. No numbness or paresthesias in the extremities. Ventriculostomy drain is in place at 3 cm of H2O. 06/22: Pt reportedly got confused last night and pulled out lines. He has intermittent pain responds to medication. Currently doing well. Follows commands and oriented. (Chucho Calderon) Review of Systems General: Negative for: fever, chills, insomnia Respiratory: Negative for: shortness of breath, cough, sputum Cardiovascular: Negative for: chest pain Gastrointestinal: Negative for: nausea, vomitting, diarrhea, constipation ( Chucho Calderon) Exam Results Vital Signs Date Time Temp Pulse Resp B/P (MAP) Pulse Ox O2 Delivery O2 Flow Rate FiO2 06/22/17 07:00 98 06/22/17 06:00 56 06/22/17 04:00 97.3 27 142/66 (91) 06/21/17 19:00 Room Air 06/20/17 19:00 2.00 06/18/17 10:35 21 (Chucho Calderon) Physical Examination Resp: CTA bilaterally Heart: NSR no murmurs Abd: Soft positive bs Skin: No signs of infection at incision. Muscle: Moves all 4 extremities with good strength. Neuro: Pt awake and alert. Follows commands. Speech clear with some restlessness. Ventriculostomy drain in place at 10cm H20. No ICP monitoring. (Chucho Calderon) Lab, Micro, Other Results Last Impressions Head CT 06/22/17 0000 Signed Impressions: Service Date/Time: Thursday, June 22, 2017 04:20 - CONCLUSION: Stable examination with postsurgical changes as detailed above. Meir Welsh MD Chest X-Ray 06/20/17 1537 Signed Impressions: Service Date/Time: Tuesday, June 20, 2017 15:56 - CONCLUSION: 1. Left basilar effusion and atelectasis new when compared to previous Jak Linares MD Cerebral Arteriogram 06/19/17 0000 Signed Impressions: Service Date/Time: June 10:38 - CONCLUSION: The exam demonstrates questionable, faint visualization of the lesion on the capillary phase imaging with injection of the right vertebral. This appears to feed via the right PICA. For the most part, this lesion appears hypovascular. Jak Linares MD Brain MRI 06/19/17 0000 Signed Impressions: Service Date/Time: June 17:37 - CONCLUSION: [facility] protocol for purposes of localizing the known fourth ventricle mass. The lesion measures approximately 19 x 22 x 33 mm and has heterogeneous enhancement. Joe Smith MD Chest CT 06/18/17 0000 Signed Impressions: Service Date/Time: Sunday, June 18, 2017 16:54 - CONCLUSION: Negative for primary or metastatic disease. Lg Linares MD FACR Abdomen/Pelvis CT 06/18/17 0000 Signed Impressions: Service Date/Time: Sunday, June 18, 2017 16:54 - CONCLUSION: 1. Possible mass of the cecum. If not done recently, attempted direct visualization with colonoscopy recommended. 2. Previous prostatectomy. 3. No evidence of bony metastatic disease. 4. Patchy cortical thinning/scarring of both kidneys. No obstructive uropathy. Joe Smith MD Laboratory Tests Test 06/21/17 11:00 06/21/17 17:00 06/21/17 23:52 06/22/17 05:15 Sodium Level 141 MEQ/L 141 MEQ/L 141 MEQ/L 139 MEQ/L Serum Osmolality 307 MOSM/KG 303 MOSM/KG 304 MOSM/KG 309 MOSM/KG Blood Urea Nitrogen 26 MG/DL Creatinine 0.98 MG/DL Random Glucose 238 MG/DL Calcium Level 9.0 MG/DL Potassium Level 4.0 MEQ/L Chloride Level 108 MEQ/L Carbon Dioxide Level 22.2 MEQ/L Anion Gap 9 MEQ/L Estimat Glomerular Filtration Rate 77 ML/MIN (Chucho Calderon) Medical Decision Making Impression and Plan A: 67 y/o male with fourth ventricle mass with surrounding hemorrhage s/p Stereotactic, image-guided suboccipital craniectomy, C1 laminectomy, microsurgical resection of fourth ventricle ependymoma. Microsurgical dissection on 06/20/17. Pt had a follow up CT head for his confusion early this morning stable. P: Continue with pain control Continue with ventriculostomy drain continue with neuro checks (Chucho Calderon) Attending Statement The exam, history, and the medical decision-making described in the above note were completed with the assistance of the mid-level provider. I reviewed and agree with the findings presented. I attest that I had a [id number] encounter with the patient on the same day, and personally performed and documented my assessment and findings in the medical record. (Rigoberto Chiu MD) Chucho Calderon Jun 22, 2017 07:39 Rigoberto Chiu MD Jun 22, 2017 10:24
[2017-06-22] MEDS: NS + KCL 20 MEQ INJ 1,000 ML IV SCH (07:59)
[2017-06-22] MEDS: SPIRONOLACTONE 25 MG TAB PO SCH (08:01)
[2017-06-22] MEDS: DOCUSATE SODIUM 100 MG CAP PO SCH ×2 (08:01→20:25)
[2017-06-22] MEDS: amLODIPine BESYLATE 5 MG TAB PO SCH ×2 (08:01→20:23)
[2017-06-22] MEDS: PANTOPRAZOLE SODIUM 40 MG VIAL IVP SCH (08:01)
[2017-06-22] MEDS: DOCUSATE SODIUM 50 MG/SENNA 8.6 MG TAB PO SCH ×2 (08:01→20:22)
[2017-06-22] MEDS: FAMOTIDINE 20 MG TAB PO SCH ×2 (08:01→20:22)
[2017-06-22] MEDS: LISINOPRIL 20 MG TAB PO SCH ×2 (08:02→21:00)
[2017-06-22] MEDS: SODIUM CHLORIDE 0.9% FLUSH 5 ML FLUSH IVF SCH ×2 (08:02→20:25)
[2017-06-22] MEDS: INSULIN NovoLIN REGULAR SUPPLEMENTAL SCALE SQ SCH ×4 (08:03→21:00)
[2017-06-22] MEDS: FLUTICASONE PROPIONATE 50 MCG/ACT 16 GM NASAL SPRAY EACH NARE SCH ×2 (08:04→20:39)
[2017-06-22] MEDS: NICARDIPINE IV PRN ×2 (09:10→18:36)
[2017-06-22] MEDS: SODIUM CHLORID 0.9% IV PRN ×2 (09:10→18:36)
[2017-06-22] MEDS ORDERED: LORazepam 2 MG/ML VIAL IV PUSH PRN (09:45)
[2017-06-22] MEDS: HYDROmorphone HCL PF 1 MG/ML VIAL IV PUSH PRN (09:59)
[2017-06-22] MEDS ORDERED: INSULIN DETEMIR 100 UNITS/ML VIAL SQ SCH (12:15)
--- NOTE | 2017-06-22 12:18 | HHI.CCPN ---
Subjective Remarks/Hospital Course 06/17: 67-year-old male . Date of admission 06/17/2017. Past medical history includes hypertension. His presenting complaint the hospital was vertigo. He' s been having vertigo for about 4 weeks but is getting progressively worse. The vertigo is aggravated by movement of the head by standing.. Symptomatology occurring worse last couple of days has been quite severe. He's having a headache behind both of his eyes. He says he is unable to stand without falling over. He has a history of prostate cancer and has had a radical prostatectomy. He says he has had urinary tract infections since then. He has had multiple surgeries including multiple orthopedic procedures as well as appendectomy and hernia. He was diagnosed with an ear infection and has been on doxycycline for 2 weeks. 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 Dr. Hunter was contacted. Recommended dexamethasone 4 mg IV every 6 hours with surgical evaluation in AM. Patient remained quite hypertensive. Was started on a Dilliner proximal drip. Patient pointed diffuse headache [address] brain revealed small focal hemorrhagic component was left 9 x 15 mm. 06/18: Sitting up in bed. Feels much better today. Still has some headache. Denies any nausea currently. No dizziness if he stays still. Wishes to eat. Blood pressure better controlled. 06/20: S/P suboccipital craniectomy, C1 laminectomy, microsurgical resection of fourth ventricle ependymoma. Sleepy but conversant. Controls airway well. 06/21: Alert, conversant. Protects airway well, swallows well. 06/22: Alert, conversant. Persistent problems with hyperglycemia. Add bid levemir and change diet. Likely related to steroids. Objective Vital Signs Date Time Temp Pulse Resp B/P (MAP) Pulse Ox O2 Delivery O2 Flow Rate FiO2 06/22/17 10:00 64 06/22/17 09:10 150/79 06/22/17 08:00 98.3 21 98 06/21/17 19:00 Room Air 06/20/17 19:00 2.00 06/18/17 10:35 21 Intake and Output 06/22/17 06/22/17 06/23/17 08:00 16:00 00:00 Intake Total 3099 ml 520 ml Output Total 2103 ml Balance 996 ml 520 ml Result Diagram: 06/21/17 0559 06/22/17 1130 Imaging Last Impressions Brain MRI 06/17/17 1134 Signed Impressions: Service Date/Time: Saturday, June 17, 2017 13:16 - CONCLUSION: 1. There is a mass measuring 1.6 x 3.3 x 2.4 cm which fills the fourth ventricle. This is isointense on the T1-weighted images. There is heterogeneous enhancement. Primary differential considerations include ependymoma/subependymoma versus choroid plexus papilloma/carcinoma. Jak Linares MD Chest X-Ray 06/17/17 0000 Signed Impressions: Service Date/Time: Saturday, June 17, 2017 17:00 - CONCLUSION: No acute disease. Hamilton Stacy MD Objective Remarks GENERAL: 67-year-old male, currently resting in bed SKIN: Warm and dry. HEAD: Atraumatic. Normocephalic. EYES: Pupils equal and round ,2 mm, reactive. No scleral icterus. No injection or drainage. ENT: No nasal bleeding or discharge. Mucous membranes pink and moist. NECK: Trachea midline. Airway widely patent. CARDIOVASCULAR: RRR. S1, S2 no S4. RESPIRATORY: No accessory muscle use. Clear to auscultation. Breath sounds equal bilaterally. No adventitious sounds. GASTROINTESTINAL: Abdomen soft, non-tender, nondistended. BS active. MUSCULOSKELETAL: Extremities well perfused, warm. NEUROLOGICAL: Alert, cooperative. Motor grossly within normal limits. Five out of 5 muscle strength in the arms and legs. Conversant. Date of Insertion: Jun 18, 2017 Line: Central Venous Catheter Side: Right Location: Internal, Jugular A/P Assessment and Plan Neuro/Psych: Fourth ventricle enlargement/mass Headaches NOS MRI brain 06/17 revealed a 1.6 3.3 x 2.4 cm mass arising from the epidemic. Differential includes ependymoma, choroid plexus papilloma versus other Dr. Hunter/neurosurgery evaluation. Dr. Hunter not planning immediate surgical intervention in view of question of blood around the lesion. Dexamethasone 4 mg IV every 6 hours scheduled. Acetaminophen 650 mg every 6 hours when necessary pain 1 through 2/fever greater than 100 Hydromorphone 0.2-0.5 mg every 4 hours when necessary pain 3-10. Patient states he has taken this before. Noted allergies to hydrocodone and oxycodone. CT brain revealed 9 x 15 mm focal hemorrhagic component.. See below for blood pressure modification. Discussed with Dr. Hunter. No new plans overnight unless decompensation. resection 4th ventricle mass 06/20 CT head 06/22 without problem, mass effect. CV: Hypertension Home medications include nebivolol 10 mg a night, increase amlodipine from 2.5mg to 5 mg twice a day , continue lisinopril 40 mg by mouth twice a day. These been continued with holding parameters for nebivolol for heart rate Continued spironolactone 25 mg by mouth twice a day Off Clevidipine drip. Clonidine when necessary. As needed Nitropaste/hydralazine to keep systolic blood pressure was 140 Resp: Nasal cannula to maintain saturations greater than equal to 92% Incentive spirometry while awake As needed albuterol/ipratropium aerosols every 4 hours when necessary dyspnea Chest x-ray 06/17 revealed no acute findings GI: Advance by mouth for K with neurosurgery. Famotidine for GI prophylaxis Docusate sodium/Senokot 1 tablet twice a day for bowel regimen : Cystitis History of prostate cancer status post prostatectomy Flores catheter not indicated currently Endo: Hyperglycemia Sliding-scale insulin to maintain euglycemia Add levemir 5 units bid until steroids off. Renal: Creatinine currently within normal limits Monitor urine output Accurate I's and O's Currently normal saline at 30 cc an hour Heme: Leukocytosis Monitor CBC daily. Follow trends. Follow-up on [facility] ID: Uncomplicated cystitis Treat with 3 days aztreonam 1 g IV every 12 hours. Cultures pending Discontinue doxycycline FEN: Replace electrolytes as clinically indicated MSK: PT OT evaluate and treat Access - Utilize peripheral IV. Central line if indicated Prophylaxis - GI - famotidine - DVT - SCD/lovenox Overall impression: Embolization of vascular supply of the tumor followed by surgery 06/20. Stable hemodynamics and respiratory status. Hyperglycemia from steroids. Lei Swartz MD Jun 22, 2017 12:18
[2017-06-22] MEDS: INSULIN DETEMIR 100 UNITS/ML VIAL SQ SCH (13:19)
[2017-06-22] MEDS ORDERED: SODIUM CHLOR 0.9% 250 ML INJ 250 ML ONE (15:47)
[2017-06-22] MEDS: ENOXAPARIN SODIUM 40 MG/0.4 ML SYRINGE SQ SCH (16:12)
[2017-06-22] MEDS: ACETAMINOPHEN 325 MG TAB PO PRN (20:22)
[2017-06-22] MEDS: NEBIVOLOL 10 MG TAB PO SCH (20:23)
[2017-06-23] VITALS (14 sets, daily range): BP systolic 116–150; BP diastolic 72–85; PULSE 54–102; RESP 12–27; TEMP 98.4–98.7; O2SAT 95–98
[2017-06-23] MEDS: MANNITOL 12.5 GM/50 ML VIAL IV SCH ×5 (00:07→23:55)
[2017-06-23] MEDS: INSULIN DETEMIR 100 UNITS/ML VIAL SQ SCH ×3 (00:07→21:52)
[2017-06-23] MEDS: HYDROmorphone HCL PF 1 MG/ML VIAL IV PUSH PRN ×3 (02:43→20:20)
[2017-06-23] MEDS: DEXAMETHASONE SOD PHOS 4 MG/ML VIAL IV PUSH SCH ×5 (02:43→20:20)
[2017-06-23] MEDS: CHLORHEXIDINE GLUCONATE 2 % 1 PACK (2 CLOTHS) TOP SCH (03:30)
[2017-06-23 05:00] LABS: BICARBONATE 25.9 MEQ/L (21.0-32.0); POTASSIUM 4.2 MEQ/L (3.5-5.1)
[2017-06-23] MEDS: hydrALAZINE HCL 20 MG/ML VIAL IV PUSH PRN ×3 (05:47→19:13)
[2017-06-23] MEDS: SODIUM CHLORIDE 0.9% FLUSH 5 ML FLUSH IVF SCH ×2 (07:26→20:21)
[2017-06-23] MEDS: NS + KCL 20 MEQ INJ 1,000 ML IV SCH (08:00)
[2017-06-23] MEDS: INSULIN NovoLIN REGULAR SUPPLEMENTAL SCALE SQ SCH ×4 (08:00→20:44)
[2017-06-23] MEDS: DOCUSATE SODIUM 100 MG CAP PO SCH ×3 (08:10→19:35)
[2017-06-23] MEDS: LISINOPRIL 20 MG TAB PO SCH ×2 (08:10→20:21)
[2017-06-23] MEDS: ACETAMINOPHEN 325 MG TAB PO PRN ×2 (08:11→15:53)
[2017-06-23] MEDS: amLODIPine BESYLATE 5 MG TAB PO SCH ×2 (08:11→09:00)
[2017-06-23] MEDS: DOCUSATE SODIUM 50 MG/SENNA 8.6 MG TAB PO SCH ×3 (08:11→19:35)
[2017-06-23] MEDS: PANTOPRAZOLE SODIUM 40 MG VIAL IVP SCH ×2 (08:11→09:00)
[2017-06-23] MEDS: FAMOTIDINE 20 MG TAB PO SCH ×3 (08:11→20:21)
[2017-06-23] MEDS: SPIRONOLACTONE 25 MG TAB PO SCH ×2 (08:11→09:00)
[2017-06-23] MEDS: FLUTICASONE PROPIONATE 50 MCG/ACT 16 GM NASAL SPRAY EACH NARE SCH ×2 (09:00→20:44)
[2017-06-23] MEDS ORDERED: ENOXAPARIN SODIUM 40 MG/0.4 ML SYRINGE SQ SCH (10:00)
--- NOTE | 2017-06-23 10:26 | HHI.NSPN ---
(Claudia Camacho) Note Status Status: Progress Note (Claudia Camacho) Interval History Interval History This is a 67-year-old male with history of arterial hypertension and prostate Ca. He present to the [facility] ER with vertigo. He's been having vertigo for about 4 weeks but is getting progressively worse. The vertigo is aggravated by movement of the head by standing.. It has been worse last couple of days, it has been quite severe. He's having a headache behind both of his eyes. He says he is unable to stand without falling over. He has a history of prostate cancer and has had a radical prostatectomy. He says he has had recurrent urinary tract infections. He has had multiple surgeries including multiple orthopedic procedures as well as appendectomy and hernia. He was diagnosed with an ear infection and has been treated with doxycycline for 2 weeks. MRI of the brain revealed a 1.6 x 3.3 x 2.4 cm mass arising from the fourth ventricle with ventricular enlargement.He was placed dexamethasone 4 mg IV every 6 hours He has been hypertensive. He reports diffuse headaches [address] brain revealed small focal hemorrhagic component was left 9 x 15 mm. Neurosurgical consultation was requested 06/19: awaiting cerebral angiography today. no new neurological complaints. 06/21: s/p Stereotactic, image-guided suboccipital craniectomy, C1 laminectomy, microsurgical resection of fourth ventricle ependymoma. Microsurgical dissection by Dr. Hunter on 06/20. Patient awake and alert. Received morphine last night which reportedly made him very agitated and restless. This was changed to Dilaudid and he is less restless. Complains of headache. No nausea or vomiting. No numbness or paresthesias in the extremities. Ventriculostomy drain is in place at 3 cm of H2O. 06/22: Pt reportedly got confused last night and pulled out lines. He has intermittent pain responds to medication. Currently doing well. Follows commands and oriented. 06/23: mildly confused, nursing reports pt c/o visual disturbance in color. (Claudia Camacho) Labs, Micro, & Vital Signs Results Date Time Temp Pulse Resp B/P (MAP) Pulse Ox O2 Delivery O2 Flow Rate FiO2 06/23/17 10:00 64 06/23/17 08:30 95 21 06/23/17 08:00 98.5 61 25 145/81 (102) 96 06/23/17 08:00 61 06/23/17 07:00 94 Room Air 06/23/17 06:00 58 06/23/17 04:00 54 06/23/17 04:00 98.5 54 12 143/81 (101) 96 06/23/17 03:13 20 06/23/17 02:00 58 06/23/17 01:00 56 137/83 06/23/17 00:00 98.4 62 23 138/73 (94) 97 06/23/17 00:00 62 06/23/17 00:00 62 138/73 06/22/17 22:00 61 06/22/17 21:47 62 135/72 06/22/17 20:51 97 06/22/17 20:00 101.5 76 20 139/70 (93) 96 06/22/17 20:00 74 139/70 06/22/17 20:00 76 06/22/17 19:00 96 Room Air 06/22/17 18:36 65 126/68 06/22/17 18:00 73 06/22/17 16:00 98.4 65 20 134/70 (91) 97 06/22/17 16:00 65 06/22/17 15:58 66 145/81 06/22/17 14:00 69 06/22/17 12:00 68 06/22/17 12:00 98.4 68 29 133/68 (89) 98 Constitutional Vital Signs Date Time Temp Pulse Resp B/P (MAP) Pulse Ox O2 Delivery O2 Flow Rate FiO2 06/23/17 10:00 64 06/23/17 08:30 95 21 06/23/17 08:00 98.5 61 25 145/81 (102) 96 06/23/17 08:00 61 06/23/17 07:00 94 Room Air 06/23/17 06:00 58 06/23/17 04:00 54 06/23/17 04:00 98.5 54 12 143/81 (101) 96 06/23/17 03:13 20 06/23/17 02:00 58 06/23/17 01:00 56 137/83 06/23/17 00:00 98.4 62 23 138/73 (94) 97 06/23/17 00:00 62 06/23/17 00:00 62 138/73 06/22/17 22:00 61 06/22/17 21:47 62 135/72 06/22/17 20:51 97 06/22/17 20:00 101.5 76 20 139/70 (93) 96 06/22/17 20:00 74 139/70 06/22/17 20:00 76 06/22/17 19:00 96 Room Air 06/22/17 18:36 65 126/68 06/22/17 18:00 73 06/22/17 16:00 98.4 65 20 134/70 (91) 97 06/22/17 16:00 65 06/22/17 15:58 66 145/81 06/22/17 14:00 69 06/22/17 12:00 68 06/22/17 12:00 98.4 68 29 133/68 (89) 98 (Claudia Camacho) Review of Systems Constitutional: DENIES: Fever, Chills Respiratory: DENIES: Hemoptysis Cardiovascular: DENIES: Chest pain Neurologic: COMPLAINS OF: Headache Psychiatric: COMPLAINS OF: Confusion (Claudia Camacho) Physical Exam Awake, alert oriented to name and place. Appears mildly confused. Follows commands Surgical wound healing well, sutures intact. CN: pupils 3-4 mm bilaterally. EOMs intact Neck: limited ROM due to surgical pain Motor: moves all four extremities symmetrically Abdomen: soft, nontender Right ventriculostomy at 10 cm H20, draining waterman CSF. (Claudia Camacho) Medications Current Medications Current Medications Medications (Trade) Dose Ordered Sig/Geovany Route PRN Reason Start Time Stop Time Status Last Admin Dose Admin Famotidine (Pepcid) 20 mg Q12HR PO 06/17/17 21:00 06/23/17 09:00 Albuterol/ Ipratropium (Duoneb Neb) 1 ampule Q4HR NEB PRN INH WHEEZING 06/17/17 16:00 Miscellaneous Information 1 Q361D XX 06/17/17 16:00 Chlorhexidine Gluconate (Chlorhexidine 2% Cloth) Taper DAILY@04 TOP 06/18/17 04:00 06/14/18 03:59 Chlorhexidine Gluconate (Chlorhexidine 2% Cloth) 3 pack UNSCH PRN TOP HYGIENIC CARE 06/17/17 16:00 Senna/Docusate Sodium (Shakira-Colace) 1 tab BID PO 06/17/17 21:00 06/23/17 09:00 Magnesium Hydroxide (Milk Of Magnesia Liq) 30 ml Q12H PRN PO MILD - MODERATE CONSTIPATION 06/17/17 16:00 Sennosides (Senokot) 17.2 mg Q12H PRN PO MODERATE - SEVERE CONSTIPATION 06/17/17 16:00 Lactulose (Lactulose Liq) 30 ml DAILY PRN PO SEVERE CONSITIPATION 06/17/17 16:00 Fluticasone Propionate (Flonase Cortes Spr) 1 spray BID EACH NARE 06/17/17 21:00 06/19/17 20:29 Nebivolol (Bystolic) 10 mg HS PO 06/17/17 21:00 06/22/17 20:23 Spironolactone (Aldactone) 25 mg DAILY PO 06/18/17 09:00 06/23/17 09:00 Dexamethasone Sodium Phosphate (Decadron Inj) 4 mg Q6H IV PUSH 06/17/17 22:00 06/23/17 10:00 Miscellaneous (Pill Splitter) 1 ea UNSCH PRN OTHER SEE LABEL COMMENTS 06/17/17 16:30 Hydralazine HCl (Apresoline Inj) 10 mg Q1HR PRN IV PUSH SBP greater than 140mm Hg 06/17/17 18:45 06/23/17 05:47 Nitroglycerin (Nitroglycerin 2% Oint) 2 inch Q6HR PRN TOPICAL SBP>140, DBP>90 06/17/17 18:30 Lisinopril (Prinivil) 40 mg BID PO 06/17/17 21:00 06/23/17 08:10 Dextrose (D50w (Vial) Inj) 50 ml UNSCH PRN IV HYPOGLYCEMIA-SEE COMMENTS 06/17/17 19:00 Glucagon (Glucagon Inj) 1 mg UNSCH PRN OTHER HYPOGLYCEMIA-SEE COMMENTS 06/17/17 19:00 Insulin Human Regular (NovoLIN R SUPPLEMENTAL SCALE) 1 ACHS SLIDING SCALE SQ 06/17/17 21:00 06/22/17 16:13 Clevidipine 50 ml @ 2 mls/hr TITRATE PRN IV Blood Pressure Management 06/17/17 19:45 Amlodipine Besylate (Norvasc) 5 mg BID PO 06/18/17 21:00 06/23/17 09:00 Clonidine (Catapres) 0.1 mg Q6H PRN PO SBP greater than 160mm Hg 06/18/17 09:30 06/19/17 01:19 Vancomycin HCl 1000 mg/Sodium Chloride 250 ml @ 250 mls/hr ANHYDROUS AMMONIA [employer]ODUCTION SUPERVISOR IV 06/19/17 13:30 06/23/17 13:29 Potassium Chloride/Sodium Chloride 1,000 ml @ 30 mls/hr Q24H IV 06/20/17 16:00 06/23/17 08:00 IV Flush (NS Flush) 2 ml UNSCH PRN IVF FLUSH AFTER USING IV ACCESS 06/20/17 15:45 IV Flush (NS Flush) 2 ml BID IVF 06/20/17 21:00 06/23/17 07:26 Enoxaparin Sodium (Lovenox Inj) 40 mg Q24H SQ 06/22/17 15:45 06/22/17 16:12 Bisacodyl (Dulcolax Supp) 10 mg DAILY PRN RECTAL CONSTIPATION 06/20/17 15:45 Docusate Sodium (Colace) 100 mg BID PO 06/20/17 21:00 06/23/17 09:00 Pantoprazole Sodium (Protonix Inj) 40 mg DAILY IVP 06/21/17 09:00 06/23/17 09:00 Ondansetron HCl (Zofran Inj) 4 mg Q6H PRN IV NAUSEA OR VOMITING 06/20/17 15:45 Calcium Gluconate (Calcium Gluconate Inj) 1 gm UNSCH PRN IV SEE LABEL COMMENTS 06/20/17 15:45 Potassium Chloride 100 ml @ 50 mls/hr UNSCH PRN IV POTASSIUM LESS THAN 4 06/20/17 15:45 Magnesium Sulfate 4 gm/Sodium Chloride 108 ml @ 108 mls/hr UNSCH PRN IV MAGNESIUM LESS THAN 2 06/20/17 15:45 Mannitol (Mannitol Inj) 25 gm Q6H IV 06/20/17 18:00 06/23/17 00:07 Acetaminophen (Tylenol) 650 mg Q4H PRN PO TEMPERATURE > 101.5 F 06/20/17 15:45 06/23/17 08:11 Hydromorphone HCl (Dilaudid Pf Inj) 0.5 mg Q4H PRN IV PUSH pain 1-5 06/20/17 22:30 06/23/17 02:43 Hydromorphone HCl (Dilaudid Pf Inj) 1 mg Q2H PRN IV PUSH pain 6-10 06/21/17 11:30 06/22/17 09:59 Nicardipine HCl 50 mg/Sodium Chloride 520 ml @ 52 mls/hr TITRATE PRN IV Blood Pressure Management 06/21/17 12:30 06/22/17 18:36 Lorazepam (Ativan Inj) 1 mg Q6H PRN IV PUSH agitation 06/22/17 09:45 Insulin Detemir (Levemir Inj) 5 units Q12H SQ 06/22/17 12:30 06/22/17 13:19 (Claudia Camacho) Medical Decision Making MDM Remarks 67 y/o male with fourth ventricle mass with surrounding hemorrhage s/p suboccipital craniectomy, C1 laminectomy, microsurgical resection of fourth ventricle ependymoma, placement of right ventriculostomy drain on 06/20/16. (Claudia Camacho) Plan Plan Remarks cont EVD draining at 10 cm H20, cont supportive care, limit narcotics-may be contributing to confusion cont Decadron, Protonix for ulcer prophylaxis cont therapy, encourage mobilization OOB, start on sq lovenox for dvt prophylaxis, cont SCDs and TEDs (Claudia Camacho) Attending Statement The exam, history, and the medical decision-making described in the above note were completed with the assistance of the mid-level provider. I reviewed and agree with the findings presented. I attest that I had a [id number] encounter with the patient on the same day, and personally performed and documented my assessment and findings in the medical record. (Steven Hunter MD) Claudia Camacho Jun 23, 2017 10:26 Steven Hunter MD Jun 23, 2017 10:56
[2017-06-23] MEDS: ENOXAPARIN SODIUM 40 MG/0.4 ML SYRINGE SQ SCH (13:43)
[2017-06-23] MEDS: cloNIDine HCL 0.1 MG TAB PO PRN (14:18)
--- NOTE | 2017-06-23 16:06 | HHI.CCPN ---
Subjective Remarks/Hospital Course 06/17: 67-year-old male . Date of admission 06/17/2017. Past medical history includes hypertension. His presenting complaint the hospital was vertigo. He' s been having vertigo for about 4 weeks but is getting progressively worse. The vertigo is aggravated by movement of the head by standing.. Symptomatology occurring worse last couple of days has been quite severe. He's having a headache behind both of his eyes. He says he is unable to stand without falling over. He has a history of prostate cancer and has had a radical prostatectomy. He says he has had urinary tract infections since then. He has had multiple surgeries including multiple orthopedic procedures as well as appendectomy and hernia. He was diagnosed with an ear infection and has been on doxycycline for 2 weeks. 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 Dr. Hunter was contacted. Recommended dexamethasone 4 mg IV every 6 hours with surgical evaluation in AM. Patient remained quite hypertensive. Patient pointed diffuse headache [address] brain revealed small focal hemorrhagic component was left 9 x 15 mm. 06/18: Sitting up in bed. Feels much better today. Still has some headache. Denies any nausea currently. No dizziness if he stays still. Wishes to eat. Blood pressure better controlled. 06/20: S/P suboccipital craniectomy, C1 laminectomy, microsurgical resection of fourth ventricle ependymoma. Sleepy but conversant. Controls airway well. 06/21: Alert, conversant. Protects airway well, swallows well. 06/22: Alert, conversant. Persistent problems with hyperglycemia. Add bid Levemir and change diet. Likely related to steroids. 06/23: Awake alert, relieved that he is having BM. Blood glucose 200 to 230. EVD 65 ml blood tinged CSF in 24 hours. Intermittently hypertensive. Increase Norvasc to 10 mg daily, increase when necessary clonidine 0.2 mg Objective Vital Signs Date Time Temp Pulse Resp B/P (MAP) Pulse Ox O2 Delivery O2 Flow Rate FiO2 06/23/17 14:00 71 06/23/17 12:00 98.7 24 150/85 (106) 97 06/23/17 08:30 21 06/23/17 07:00 Room Air 06/20/17 19:00 2.00 Intake and Output 06/23/17 06/23/17 06/24/17 08:00 16:00 00:00 Intake Total 1230 ml Output Total 1246 ml Balance -16 ml Result Diagram: 06/21/17 0559 06/23/17 1115 Imaging Last Impressions Brain MRI 06/17/17 1134 Signed Impressions: Service Date/Time: Saturday, June 17, 2017 13:16 - CONCLUSION: 1. There is a mass measuring 1.6 x 3.3 x 2.4 cm which fills the fourth ventricle. This is isointense on the T1-weighted images. There is heterogeneous enhancement. Primary differential considerations include ependymoma/subependymoma versus choroid plexus papilloma/carcinoma. Jak Linares MD Chest X-Ray 06/17/17 0000 Signed Impressions: Service Date/Time: Saturday, June 17, 2017 17:00 - CONCLUSION: No acute disease. Hamilton Stacy MD Objective Remarks GENERAL: 67-year-old male, currently resting in bed SKIN: Warm and dry. HEAD: Atraumatic. Normocephalic. EVD with 65 ml in 24 hours. Blood-tinged CSF EYES: Pupils equal and round, 2 mm, reactive. No scleral icterus. No injection or drainage. ENT: No nasal bleeding or discharge. Mucous membranes pink and moist. NECK: Trachea midline. Airway widely patent. CARDIOVASCULAR: RRR. S1, S2 no S4. RESPIRATORY: No accessory muscle use. Clear to auscultation. Breath sounds equal bilaterally. No adventitious sounds. GASTROINTESTINAL: Abdomen soft, non-tender, nondistended. BS active. MUSCULOSKELETAL: Extremities well perfused, warm. NEUROLOGICAL: Alert, cooperative. Motor grossly within normal limits. Five out of 5 muscle strength in the arms and legs. Conversant. Date of Insertion: Jun 18, 2017 Line: Central Venous Catheter Side: Right Location: Internal, Jugular A/P Assessment and Plan Neuro/Psych: Fourth ventricle mass Headaches NOS MRI brain 06/17 revealed a 1.6 3.3 x 2.4 cm mass in the 4 th ventricle. Differential includes ependymoma, choroid plexus papilloma versus other Dr. Hunter/neurosurgery. s/p Stereotactic, image-guided suboccipital craniectomy , C1 laminectomy, microsurgical resection of fourth ventricle ependymoma 06/20 Dexamethasone 4 mg IV every 6 hours scheduled. Acetaminophen 650 mg every 6 hours when necessary pain 1 through 2/fever greater than 100 Hydromorphone 0.2-0.5 mg every 4 hours when necessary pain 3-10. Patient states he has taken this before. Noted allergies to hydrocodone and oxycodone. CT brain revealed 9 x 15 mm focal hemorrhagic component. CT head 06/22 stable exam with postsurgical changes CV: Hypertension Hypertension remains poorly controlled and high enough to cause hemorrhagic compilations Home medications include nebivolol 10 mg a night, (increase from 10 to 20 mg daily) amlodipine 10 mg daily , continue lisinopril 40 mg by mouth twice a day. These been continued with holding parameters for nebivolol for heart rate Continued spironolactone 25 mg by mouth twice a day Off Clevidipine drip. Clonidine when necessary. As needed Nitropaste/hydralazine to keep systolic blood pressure was 140 Resp: Nasal cannula to maintain saturations greater than equal to 92% Incentive spirometry while awake As needed albuterol/ipratropium aerosols every 4 hours when necessary dyspnea Chest x-ray 06/17 revealed no acute findings GI: Advance by mouth for K with neurosurgery. Famotidine for GI prophylaxis Docusate sodium/Senokot 1 tablet twice a day for bowel regimen : Cystitis History of prostate cancer status post prostatectomy Flores catheter not indicated currently Endo: Hyperglycemia Sliding-scale insulin to maintain euglycemia Levemir 5 units bid until steroids off. Increase to 10 BID Renal: Creatinine currently within normal limits Monitor urine output Accurate I's and O's Currently normal saline at 30 cc an hour Heme: Leukocytosis Monitor CBC daily. Follow trends. Follow-up on [facility] ID: Uncomplicated cystitis Treat with 3 days aztreonam 1 g IV every 12 hours. Cultures pending Discontinued doxycycline FEN: Replace electrolytes as clinically indicated MSK: PT OT evaluate and treat Access Utilize peripheral IV. 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 Stable hemodynamics and respiratory status. Hyperglycemia from steroids improving. Continue ICU care due to EVD Level 3 Sancho Diaz MD Jun 23, 2017 16:02
[2017-06-23] MEDS: NEBIVOLOL 10 MG TAB PO SCH (20:21)
[2017-06-24] VITALS (13 sets, daily range): BP systolic 137–168; BP diastolic 62–87; PULSE 47–62; RESP 15–29; TEMP 98–98.5; O2SAT 94–97
[2017-06-24] MEDS: CHLORHEXIDINE GLUCONATE 2 % 1 PACK (2 CLOTHS) TOP SCH (00:23)
[2017-06-24] MEDS: ACETAMINOPHEN 325 MG TAB PO PRN ×2 (04:37→21:52)
[2017-06-24] MEDS: DEXAMETHASONE SOD PHOS 4 MG/ML VIAL IV PUSH SCH ×4 (04:38→20:54)
[2017-06-24] MEDS: MANNITOL 12.5 GM/50 ML VIAL IV SCH ×3 (06:00→18:00)
[2017-06-24] MEDS: NS + KCL 20 MEQ INJ 1,000 ML IV SCH (07:52)
[2017-06-24] MEDS: PANTOPRAZOLE SODIUM 40 MG VIAL IVP SCH (07:52)
[2017-06-24] MEDS: INSULIN NovoLIN REGULAR SUPPLEMENTAL SCALE SQ SCH ×4 (07:52→20:54)
[2017-06-24] MEDS: LISINOPRIL 20 MG TAB PO SCH ×2 (07:52→20:54)
[2017-06-24] MEDS: SPIRONOLACTONE 25 MG TAB PO SCH (07:53)
[2017-06-24] MEDS: FLUTICASONE PROPIONATE 50 MCG/ACT 16 GM NASAL SPRAY EACH NARE SCH ×2 (07:53→21:00)
[2017-06-24] MEDS: DOCUSATE SODIUM 50 MG/SENNA 8.6 MG TAB PO SCH ×2 (07:53→20:55)
[2017-06-24] MEDS: FAMOTIDINE 20 MG TAB PO SCH ×2 (07:53→20:54)
[2017-06-24] MEDS: DOCUSATE SODIUM 100 MG CAP PO SCH ×2 (07:53→20:55)
[2017-06-24] MEDS: SODIUM CHLORIDE 0.9% FLUSH 5 ML FLUSH IVF SCH ×2 (07:54→20:55)
--- NOTE | 2017-06-24 09:19 | HHI.CCPN ---
Subjective Remarks/Hospital Course 06/17: 67-year-old male . Date of admission 06/17/2017. Past medical history includes hypertension. His presenting complaint the hospital was vertigo. He' s been having vertigo for about 4 weeks but is getting progressively worse. The vertigo is aggravated by movement of the head by standing.. Symptomatology occurring worse last couple of days has been quite severe. He's having a headache behind both of his eyes. He says he is unable to stand without falling over. He has a history of prostate cancer and has had a radical prostatectomy. He says he has had urinary tract infections since then. He has had multiple surgeries including multiple orthopedic procedures as well as appendectomy and hernia. He was diagnosed with an ear infection and has been on doxycycline for 2 weeks. 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 Dr. Hunter was contacted. Recommended dexamethasone 4 mg IV every 6 hours with surgical evaluation in AM. Patient remained quite hypertensive. Patient pointed diffuse headache [address] brain revealed small focal hemorrhagic component was left 9 x 15 mm. 06/18: Sitting up in bed. Feels much better today. Still has some headache. Denies any nausea currently. No dizziness if he stays still. Wishes to eat. Blood pressure better controlled. 06/20: S/P suboccipital craniectomy, C1 laminectomy, microsurgical resection of fourth ventricle ependymoma. Sleepy but conversant. Controls airway well. 06/21: Alert, conversant. Protects airway well, swallows well. 06/22: Alert, conversant. Persistent problems with hyperglycemia. Add bid Levemir and change diet. Likely related to steroids. 06/23: Awake alert, relieved that he is having BM. Blood glucose 200 to 230. EVD 65 ml blood tinged CSF in 24 hours. Intermittently hypertensive. Increase Norvasc to 10 mg daily, increase when necessary clonidine 0.2 mg 06/24: Awake and alert. Ventriculostomy remains in place. Objective Vital Signs Date Time Temp Pulse Resp B/P (MAP) Pulse Ox O2 Delivery O2 Flow Rate FiO2 06/24/17 08:16 96 21 06/24/17 08:00 98.4 50 15 168/87 (114) 06/24/17 07:00 Room Air 06/20/17 19:00 2.00 Intake and Output 06/24/17 06/24/17 06/25/17 08:00 16:00 00:00 Intake Total 480 ml Output Total 810 ml Balance -330 ml Result Diagram: 06/21/17 0559 06/24/17 0500 Imaging Last Impressions Brain MRI 06/17/17 1134 Signed Impressions: Service Date/Time: Saturday, June 17, 2017 13:16 - CONCLUSION: 1. There is a mass measuring 1.6 x 3.3 x 2.4 cm which fills the fourth ventricle. This is isointense on the T1-weighted images. There is heterogeneous enhancement. Primary differential considerations include ependymoma/subependymoma versus choroid plexus papilloma/carcinoma. Jak Linares MD Chest X-Ray 06/17/17 0000 Signed Impressions: Service Date/Time: Saturday, June 17, 2017 17:00 - CONCLUSION: No acute disease. Hamilton Stacy MD Objective Remarks GENERAL: 67-year-old male, currently resting in bed SKIN: Warm and dry. HEAD: Atraumatic. Normocephalic. EVD with 13 ml in 12 hours. Blood-tinged CSF EYES: Pupils equal and round, 2 mm, reactive. No scleral icterus. No injection or drainage. ENT: No nasal bleeding or discharge. Mucous membranes pink and moist. NECK: Trachea midline. Airway widely patent. CARDIOVASCULAR: RRR. S1, S2 no S4. RESPIRATORY: No accessory muscle use. Clear to auscultation. Breath sounds equal bilaterally. No adventitious sounds. GASTROINTESTINAL: Abdomen soft, non-tender, nondistended. BS active. MUSCULOSKELETAL: Extremities well perfused, warm. NEUROLOGICAL: Alert, cooperative. Motor grossly within normal limits. Five out of 5 muscle strength in the arms and legs. Conversant. Date of Insertion: Jun 18, 2017 Line: Central Venous Catheter Side: Right Location: Internal, Jugular A/P Assessment and Plan Neuro/Psych: Fourth ventricle mass Headaches NOS MRI brain 06/17 revealed a 1.6 3.3 x 2.4 cm mass in the 4 th ventricle. Differential includes ependymoma, choroid plexus papilloma versus other Dr. Hunter/neurosurgery. s/p Stereotactic, image-guided suboccipital craniectomy , C1 laminectomy, microsurgical resection of fourth ventricle ependymoma 06/20 Dexamethasone 4 mg IV every 6 hours scheduled, IV mannitol - considered stopping / taper when okay with neurosurgery. Acetaminophen 650 mg every 6 hours when necessary pain 1 through 2/fever greater than 100 Hydromorphone 0.2-0.5 mg every 4 hours when necessary pain 3-10. Patient states he has taken this before. Noted allergies to hydrocodone and oxycodone. CT brain revealed 9 x 15 mm focal hemorrhagic component. CT head 06/22 stable exam with postsurgical changes CV: Hypertension Home medications include nebivolol 10 mg a night, (increase from 10 to 20 mg daily) amlodipine 10 mg daily , continue lisinopril 40 mg by mouth twice a day. These been continued with holding parameters for nebivolol for heart rate Continued spironolactone 25 mg by mouth twice a day Off Clevidipine drip. Clonidine when necessary. As needed Nitropaste/hydralazine to keep systolic blood pressure was 140 Resp: Nasal cannula to maintain saturations greater than equal to 92% Incentive spirometry while awake As needed albuterol/ipratropium aerosols every 4 hours when necessary dyspnea Chest x-ray 06/17 revealed no acute findings GI: Advance by mouth for K with neurosurgery. Famotidine for GI prophylaxis Docusate sodium/Senokot 1 tablet twice a day for bowel regimen : Cystitis History of prostate cancer status post prostatectomy Flores catheter not indicated currently Endo: Hyperglycemia Sliding-scale insulin to maintain euglycemia Levemir 5 units bid until steroids off. Increase to 10 BID Renal: Creatinine currently within normal limits Monitor urine output Accurate I's and O's Currently normal saline at 30 cc an hour Heme: Leukocytosis Monitor CBC daily. Follow trends. Follow-up on [facility] ID: Uncomplicated cystitis Treat with 3 days aztreonam 1 g IV every 12 hours. Cultures pending Discontinued doxycycline FEN: Replace electrolytes as clinically indicated MSK: PT OT evaluate and treat Access Utilize peripheral IV. 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 Stable hemodynamics and respiratory status. Hyperglycemia from steroids improving. Continue ICU care due to EVD Level 3 Gage Ho MD Jun 24, 2017 09:19
--- NOTE | 2017-06-24 09:43 | HHI.NSPN ---
(Claudia Camacho) Note Status Status: Progress Note (Claudia Camacho) Interval History Interval History This is a 67-year-old male with history of arterial hypertension and prostate Ca. He present to the [facility] ER with vertigo. He's been having vertigo for about 4 weeks but is getting progressively worse. The vertigo is aggravated by movement of the head by standing.. It has been worse last couple of days, it has been quite severe. He's having a headache behind both of his eyes. He says he is unable to stand without falling over. He has a history of prostate cancer and has had a radical prostatectomy. He says he has had recurrent urinary tract infections. He has had multiple surgeries including multiple orthopedic procedures as well as appendectomy and hernia. He was diagnosed with an ear infection and has been treated with doxycycline for 2 weeks. MRI of the brain revealed a 1.6 x 3.3 x 2.4 cm mass arising from the fourth ventricle with ventricular enlargement.He was placed dexamethasone 4 mg IV every 6 hours He has been hypertensive. He reports diffuse headaches [address] brain revealed small focal hemorrhagic component was left 9 x 15 mm. Neurosurgical consultation was requested 06/19: awaiting cerebral angiography today. no new neurological complaints. 06/21: s/p Stereotactic, image-guided suboccipital craniectomy, C1 laminectomy, microsurgical resection of fourth ventricle ependymoma. Microsurgical dissection by Dr. Hunter on 06/20. Patient awake and alert. Received morphine last night which reportedly made him very agitated and restless. This was changed to Dilaudid and he is less restless. Complains of headache. No nausea or vomiting. No numbness or paresthesias in the extremities. Ventriculostomy drain is in place at 3 cm of H2O. 06/22: Pt reportedly got confused last night and pulled out lines. He has intermittent pain responds to medication. Currently doing well. Follows commands and oriented. 06/23: mildly confused, nursing reports pt c/o visual disturbance in color. 06/24: reports patient intermittently confused, she is also concerned regarding his poor oral intake. ventriculostomy draining well. (Claudia Camacho) Labs, Micro, & Vital Signs Results Date Time Temp Pulse Resp B/P (MAP) Pulse Ox O2 Delivery O2 Flow Rate FiO2 06/24/17 08:16 96 21 06/24/17 08:00 98.4 50 15 168/87 (114) 96 06/24/17 08:00 50 06/24/17 07:00 96 Room Air 06/24/17 06:00 47 06/24/17 04:00 51 06/24/17 04:00 98.2 51 25 137/62 (87) 97 06/24/17 02:00 48 06/24/17 00:00 98.4 62 22 144/78 (100) 94 06/24/17 00:00 55 06/23/17 22:00 65 06/23/17 21:47 95 21 06/23/17 20:50 21 06/23/17 20:00 98.5 69 22 135/72 (93) 95 06/23/17 20:00 65 06/23/17 19:00 95 Room Air 06/23/17 18:00 63 06/23/17 16:00 66 06/23/17 16:00 98.7 66 27 142/75 (97) 96 06/23/17 14:00 71 06/23/17 12:00 98.7 59 24 150/85 (106) 97 06/23/17 12:00 61 06/23/17 10:00 64 Constitutional Vital Signs Date Time Temp Pulse Resp B/P (MAP) Pulse Ox O2 Delivery O2 Flow Rate FiO2 06/24/17 08:16 96 21 06/24/17 08:00 98.4 50 15 168/87 (114) 96 06/24/17 08:00 50 06/24/17 07:00 96 Room Air 06/24/17 06:00 47 06/24/17 04:00 51 06/24/17 04:00 98.2 51 25 137/62 (87) 97 06/24/17 02:00 48 06/24/17 00:00 98.4 62 22 144/78 (100) 94 06/24/17 00:00 55 06/23/17 22:00 65 06/23/17 21:47 95 21 06/23/17 20:50 21 06/23/17 20:00 98.5 69 22 135/72 (93) 95 06/23/17 20:00 65 06/23/17 19:00 95 Room Air 06/23/17 18:00 63 06/23/17 16:00 66 06/23/17 16:00 98.7 66 27 142/75 (97) 96 06/23/17 14:00 71 06/23/17 12:00 98.7 59 24 150/85 (106) 97 06/23/17 12:00 61 06/23/17 10:00 64 (Claudia Camacho) Physical Exam Appears mildly confused but in no acute distress. Awake, alert oriented to name and place. Follows commands Surgical wound healing well, sutures intact. Clean and dry. CN: pupils 3-4 mm bilaterally. EOMs intact Neck: limited ROM due to surgical incision Motor: moves all four extremities symmetrically Abdomen: soft, nontender Right ventriculostomy at 10 cm H20, draining blood tinged CSF. (Claudia Camacho) Medications Current Medications Current Medications Medications (Trade) Dose Ordered Sig/Geovany Route PRN Reason Start Time Stop Time Status Last Admin Dose Admin Famotidine (Pepcid) 20 mg Q12HR PO 06/17/17 21:00 06/24/17 07:53 Albuterol/ Ipratropium (Duoneb Neb) 1 ampule Q4HR NEB PRN INH WHEEZING 06/17/17 16:00 Miscellaneous Information 1 Q361D XX 06/17/17 16:00 Chlorhexidine Gluconate (Chlorhexidine 2% Cloth) Taper DAILY@04 TOP 06/18/17 04:00 06/14/18 03:59 Chlorhexidine Gluconate (Chlorhexidine 2% Cloth) 3 pack UNSCH PRN TOP HYGIENIC CARE 06/17/17 16:00 Senna/Docusate Sodium (Shakira-Colace) 1 tab BID PO 06/17/17 21:00 06/24/17 07:53 Magnesium Hydroxide (Milk Of Magnesia Liq) 30 ml Q12H PRN PO MILD - MODERATE CONSTIPATION 06/17/17 16:00 06/23/17 12:01 Sennosides (Senokot) 17.2 mg Q12H PRN PO MODERATE - SEVERE CONSTIPATION 06/17/17 16:00 Lactulose (Lactulose Liq) 30 ml DAILY PRN PO SEVERE CONSITIPATION 06/17/17 16:00 06/23/17 12:01 Fluticasone Propionate (Flonase Cortes Spr) 1 spray BID EACH NARE 06/17/17 21:00 06/19/17 20:29 Nebivolol (Bystolic) 10 mg HS PO 06/17/17 21:00 06/23/17 20:21 Spironolactone (Aldactone) 25 mg DAILY PO 06/18/17 09:00 06/24/17 07:53 Dexamethasone Sodium Phosphate (Decadron Inj) 4 mg Q6H IV PUSH 06/17/17 22:00 06/24/17 04:38 Miscellaneous (Pill Splitter) 1 ea UNSCH PRN OTHER SEE LABEL COMMENTS 06/17/17 16:30 Hydralazine HCl (Apresoline Inj) 10 mg Q1HR PRN IV PUSH SBP greater than 140mm Hg 06/17/17 18:45 06/23/17 19:13 Nitroglycerin (Nitroglycerin 2% Oint) 2 inch Q6HR PRN TOPICAL SBP>140, DBP>90 06/17/17 18:30 Lisinopril (Prinivil) 40 mg BID PO 06/17/17 21:00 06/24/17 07:52 Dextrose (D50w (Vial) Inj) 50 ml UNSCH PRN IV HYPOGLYCEMIA-SEE COMMENTS 06/17/17 19:00 Glucagon (Glucagon Inj) 1 mg UNSCH PRN OTHER HYPOGLYCEMIA-SEE COMMENTS 06/17/17 19:00 Insulin Human Regular (NovoLIN R SUPPLEMENTAL SCALE) 1 ACHS SLIDING SCALE SQ 06/17/17 21:00 06/22/17 16:13 Clevidipine 50 ml @ 2 mls/hr TITRATE PRN IV Blood Pressure Management 06/17/17 19:45 Potassium Chloride/Sodium Chloride 1,000 ml @ 30 mls/hr Q24H IV 06/20/17 16:00 06/23/17 08:00 IV Flush (NS Flush) 2 ml UNSCH PRN IVF FLUSH AFTER USING IV ACCESS 06/20/17 15:45 IV Flush (NS Flush) 2 ml BID IVF 06/20/17 21:00 06/24/17 07:54 Enoxaparin Sodium (Lovenox Inj) 40 mg Q24H SQ 06/22/17 15:45 06/22/17 16:12 Bisacodyl (Dulcolax Supp) 10 mg DAILY PRN RECTAL CONSTIPATION 06/20/17 15:45 Docusate Sodium (Colace) 100 mg BID PO 06/20/17 21:00 06/24/17 07:53 Pantoprazole Sodium (Protonix Inj) 40 mg DAILY IVP 06/21/17 09:00 06/24/17 07:52 Ondansetron HCl (Zofran Inj) 4 mg Q6H PRN IV NAUSEA OR VOMITING 06/20/17 15:45 06/23/17 20:20 Calcium Gluconate (Calcium Gluconate Inj) 1 gm UNSCH PRN IV SEE LABEL COMMENTS 06/20/17 15:45 Potassium Chloride 100 ml @ 50 mls/hr UNSCH PRN IV POTASSIUM LESS THAN 4 06/20/17 15:45 Magnesium Sulfate 4 gm/Sodium Chloride 108 ml @ 108 mls/hr UNSCH PRN IV MAGNESIUM LESS THAN 2 06/20/17 15:45 Mannitol (Mannitol Inj) 25 gm Q6H IV 06/20/17 18:00 06/23/17 12:08 Acetaminophen (Tylenol) 650 mg Q4H PRN PO TEMPERATURE > 101.5 F 06/20/17 15:45 06/23/17 15:53 Hydromorphone HCl (Dilaudid Pf Inj) 0.5 mg Q4H PRN IV PUSH pain 1-5 06/20/17 22:30 06/23/17 20:20 Hydromorphone HCl (Dilaudid Pf Inj) 1 mg Q2H PRN IV PUSH pain 6-10 06/21/17 11:30 06/22/17 09:59 Nicardipine HCl 50 mg/Sodium Chloride 520 ml @ 52 mls/hr TITRATE PRN IV Blood Pressure Management 06/21/17 12:30 06/22/17 18:36 Lorazepam (Ativan Inj) 1 mg Q6H PRN IV PUSH agitation 06/22/17 09:45 Insulin Detemir (Levemir Inj) 5 units Q12H SQ 06/22/17 12:30 06/22/17 13:19 Clonidine (Catapres) 0.2 mg Q6H PRN PO SBP greater than 160mm Hg 06/23/17 21:30 Amlodipine Besylate (Norvasc) 10 mg DAILY PO 06/24/17 09:00 06/24/17 07:53 Acetaminophen (Tylenol) 650 mg Q6H PRN PO PRN PAIN SCALE 1-6 06/24/17 04:30 06/24/17 04:37 (Claudia Camacho) Medical Decision Making MDM Remarks 67 y/o male with fourth ventricle mass with surrounding hemorrhage s/p suboccipital craniectomy, C1 laminectomy, microsurgical resection of fourth ventricle ependymoma, placement of right ventriculostomy drain on 06/20/16 (Claudia Camacho) Plan Plan Remarks challenging ventriculostomy drain - raise to 18 cm H20 cont supportive care, cont Tylenol for pain control start Decadron wean, Protonix for ulcer prophylaxis cont therapy, encourage mobilization OOB, cont lovenox for dvt prophylaxis, SCDs and TEDs encouraged oral intake, senior administrative assistant consulted follow up pathology (Claudia Camacho) Attending Statement The exam, history, and the medical decision-making described in the above note were completed with the assistance of the mid-level provider. I reviewed and agree with the findings presented. I attest that I had a [id number] encounter with the patient on the same day, and personally performed and documented my assessment and findings in the medical record. (Steven Hunter MD) Claudia Camacho Jun 24, 2017 09:43 Steven Hunter MD Jun 25, 2017 14:06
[2017-06-24] MEDS: INSULIN DETEMIR 100 UNITS/ML VIAL SQ SCH (11:50)
[2017-06-24] MEDS: ENOXAPARIN SODIUM 40 MG/0.4 ML SYRINGE SQ SCH (15:24)
[2017-06-24] MEDS: NEBIVOLOL 10 MG TAB PO SCH (20:54)
[2017-06-25] VITALS (14 sets, daily range): BP systolic 144–166; BP diastolic 81–99; PULSE 47–61; RESP 16–21; TEMP 97.7–98.6; O2SAT 95–99
[2017-06-25] MEDS: INSULIN DETEMIR 100 UNITS/ML VIAL SQ SCH ×2 (00:30→11:36)
[2017-06-25] MEDS: MANNITOL 12.5 GM/50 ML VIAL IV SCH ×3 (03:00→15:00)
[2017-06-25] MEDS: CHLORHEXIDINE GLUCONATE 2 % 1 PACK (2 CLOTHS) TOP SCH (04:00)
[2017-06-25] MEDS: DEXAMETHASONE SOD PHOS 4 MG/ML VIAL IV PUSH SCH ×4 (04:54→22:21)
[2017-06-25] MEDS: cloNIDine HCL 0.1 MG TAB PO PRN ×2 (04:54→22:21)
[2017-06-25] MEDS: NS + KCL 20 MEQ INJ 1,000 ML IV SCH (08:00)
[2017-06-25] MEDS: INSULIN NovoLIN REGULAR SUPPLEMENTAL SCALE SQ SCH ×4 (08:00→21:00)
[2017-06-25] MEDS: DOCUSATE SODIUM 50 MG/SENNA 8.6 MG TAB PO SCH ×2 (08:47→20:35)
[2017-06-25] MEDS: LISINOPRIL 20 MG TAB PO SCH ×2 (08:47→20:35)
[2017-06-25] MEDS: FAMOTIDINE 20 MG TAB PO SCH ×2 (08:47→20:35)
[2017-06-25] MEDS: DOCUSATE SODIUM 100 MG CAP PO SCH ×2 (08:47→20:35)
[2017-06-25] MEDS: SPIRONOLACTONE 25 MG TAB PO SCH (08:47)
[2017-06-25] MEDS: PANTOPRAZOLE SODIUM 40 MG VIAL IVP SCH (08:48)
[2017-06-25] MEDS: FLUTICASONE PROPIONATE 50 MCG/ACT 16 GM NASAL SPRAY EACH NARE SCH ×2 (08:50→20:34)
[2017-06-25] MEDS: SODIUM CHLORIDE 0.9% FLUSH 5 ML FLUSH IVF SCH ×2 (08:50→20:34)
--- NOTE | 2017-06-25 09:35 | HHI.CCPN ---
Subjective Remarks/Hospital Course 06/17: 67-year-old male . Date of admission 06/17/2017. Past medical history includes hypertension. His presenting complaint the hospital was vertigo. He' s been having vertigo for about 4 weeks but is getting progressively worse. The vertigo is aggravated by movement of the head by standing.. Symptomatology occurring worse last couple of days has been quite severe. He's having a headache behind both of his eyes. He says he is unable to stand without falling over. He has a history of prostate cancer and has had a radical prostatectomy. He says he has had urinary tract infections since then. He has had multiple surgeries including multiple orthopedic procedures as well as appendectomy and hernia. He was diagnosed with an ear infection and has been on doxycycline for 2 weeks. 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 Dr. Hunter was contacted. Recommended dexamethasone 4 mg IV every 6 hours with surgical evaluation in AM. Patient remained quite hypertensive. Patient pointed diffuse headache [address] brain revealed small focal hemorrhagic component was left 9 x 15 mm. 06/18: Sitting up in bed. Feels much better today. Still has some headache. Denies any nausea currently. No dizziness if he stays still. Wishes to eat. Blood pressure better controlled. 06/20: S/P suboccipital craniectomy, C1 laminectomy, microsurgical resection of fourth ventricle ependymoma. Sleepy but conversant. Controls airway well. 06/21: Alert, conversant. Protects airway well, swallows well. 06/22: Alert, conversant. Persistent problems with hyperglycemia. Add bid Levemir and change diet. Likely related to steroids. 06/23: Awake alert, relieved that he is having BM. Blood glucose 200 to 230. EVD 65 ml blood tinged CSF in 24 hours. Intermittently hypertensive. Increase Norvasc to 10 mg daily, increase when necessary clonidine 0.2 mg 06/24: Awake and alert. Ventriculostomy remains in place. 06/25: Awake, alert. Ventriculostomy at 18cm H20 pressure. Denies headache/ nausea. Tolerating po diet. Objective Vital Signs Date Time Temp Pulse Resp B/P (MAP) Pulse Ox O2 Delivery O2 Flow Rate FiO2 06/25/17 07:00 96 Room Air 06/25/17 06:00 48 06/25/17 04:00 98.6 20 166/99 (121) 06/24/17 08:16 21 Intake and Output 06/25/17 06/25/17 06/26/17 08:00 16:00 00:00 Intake Total 240 ml Output Total 1000 ml Balance -760 ml Result Diagram: 06/21/17 0559 06/25/17 0330 Imaging Last Impressions Brain MRI 06/17/17 1134 Signed Impressions: Service Date/Time: Saturday, June 17, 2017 13:16 - CONCLUSION: 1. There is a mass measuring 1.6 x 3.3 x 2.4 cm which fills the fourth ventricle. This is isointense on the T1-weighted images. There is heterogeneous enhancement. Primary differential considerations include ependymoma/subependymoma versus choroid plexus papilloma/carcinoma. Jak Linares MD Chest X-Ray 06/17/17 0000 Signed Impressions: Service Date/Time: Saturday, June 17, 2017 17:00 - CONCLUSION: No acute disease. Hamilton Stacy MD Objective Remarks GENERAL: 67-year-old male, currently resting in bed SKIN: Warm and dry. HEAD: Atraumatic. Normocephalic. EVD at 18cm. EYES: Pupils equal and round, 2 mm, reactive. No scleral icterus. No injection or drainage. ENT: No nasal bleeding or discharge. Mucous membranes pink and moist. NECK: Trachea midline. Airway widely patent. CARDIOVASCULAR: RRR. S1, S2 no S4. RESPIRATORY: No accessory muscle use. Clear to auscultation. Breath sounds equal bilaterally. No adventitious sounds. GASTROINTESTINAL: Abdomen soft, non-tender, nondistended. BS active. MUSCULOSKELETAL: Extremities well perfused, warm. NEUROLOGICAL: Alert, cooperative. Motor grossly within normal limits. Five out of 5 muscle strength in the arms and legs. Conversant. Date of Insertion: Jun 18, 2017 Line: Central Venous Catheter Side: Right Location: Internal, Jugular A/P Assessment and Plan Neuro/Psych: Fourth ventricle mass Headaches NOS MRI brain 06/17 revealed a 1.6 3.3 x 2.4 cm mass in the 4 th ventricle. Differential includes ependymoma, choroid plexus papilloma versus other Dr. Hunter/neurosurgery. 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 Acetaminophen 650 mg every 6 hours when necessary pain 1 through 2/fever greater than 100 Hydromorphone 0.2-0.5 mg every 4 hours when necessary pain 3-10. Patient states he has taken this before. Noted allergies to hydrocodone and oxycodone. CT brain revealed 9 x 15 mm focal hemorrhagic component. CT head 06/22 stable exam with postsurgical changes CV: Hypertension Home medications include nebivolol 10 mg a night, (increase from 10 to 20 mg daily) amlodipine 10 mg daily , continue lisinopril 40 mg by mouth twice a day. These been continued with holding parameters for nebivolol for heart rate Continued spironolactone 25 mg by mouth twice a day Off Clevidipine drip. Clonidine when necessary. As needed Nitropaste/hydralazine to keep systolic blood pressure was 140 Resp: Nasal cannula to maintain saturations greater than equal to 92% Incentive spirometry while awake As needed albuterol/ipratropium aerosols every 4 hours when necessary dyspnea Chest x-ray 06/17 revealed no acute findings GI: Advance PO diet. Famotidine for GI prophylaxis Docusate sodium/Senokot 1 tablet twice a day for bowel regimen : Cystitis History of prostate cancer status post prostatectomy Flores catheter not indicated currently Endo: Hyperglycemia Sliding-scale insulin to maintain euglycemia Levemir 5 units bid until steroids off. Renal: Creatinine currently within normal limits Monitor urine output Accurate I's and O's Currently normal saline at 30 cc an hour Heme: Leukocytosis Monitor CBC daily. Follow trends. Follow-up on [facility] ID: Uncomplicated cystitis Treat with 3 days aztreonam 1 g IV every 12 hours. Cultures pending Discontinued doxycycline FEN: Replace electrolytes as clinically indicated MSK: PT OT evaluate and treat Access Utilize peripheral IV. 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 Stable hemodynamics and respiratory status. Hyperglycemia from steroids improving. Continue ICU care due to EVD D/w Dr. Hunter. Plans to clamp EVD and possibly discontinue on 06/26. Will consult and transfer to hospitalist service for medical management starting 06/26. Critical care signing off, will be available for reconsult if needed. Level 2 Gage Ho MD Jun 25, 2017 09:35
--- NOTE | 2017-06-25 10:02 | HHI.NSPN ---
(Claudia Camacho) Note Status Status: Progress Note (Claudia Camacho) Interval History Interval History This is a 67-year-old male with history of arterial hypertension and prostate Ca. He present to the [facility] ER with vertigo. He's been having vertigo for about 4 weeks but is getting progressively worse. The vertigo is aggravated by movement of the head by standing.. It has been worse last couple of days, it has been quite severe. He's having a headache behind both of his eyes. He says he is unable to stand without falling over. He has a history of prostate cancer and has had a radical prostatectomy. He says he has had recurrent urinary tract infections. He has had multiple surgeries including multiple orthopedic procedures as well as appendectomy and hernia. He was diagnosed with an ear infection and has been treated with doxycycline for 2 weeks. MRI of the brain revealed a 1.6 x 3.3 x 2.4 cm mass arising from the fourth ventricle with ventricular enlargement.He was placed dexamethasone 4 mg IV every 6 hours He has been hypertensive. He reports diffuse headaches [address] brain revealed small focal hemorrhagic component was left 9 x 15 mm. Neurosurgical consultation was requested 06/19: awaiting cerebral angiography today. no new neurological complaints. 06/21: s/p Stereotactic, image-guided suboccipital craniectomy, C1 laminectomy, microsurgical resection of fourth ventricle ependymoma. Microsurgical dissection by Dr. Hunter on 06/20. Patient awake and alert. Received morphine last night which reportedly made him very agitated and restless. This was changed to Dilaudid and he is less restless. Complains of headache. No nausea or vomiting. No numbness or paresthesias in the extremities. Ventriculostomy drain is in place at 3 cm of H2O. 06/22: Pt reportedly got confused last night and pulled out lines. He has intermittent pain responds to medication. Currently doing well. Follows commands and oriented. 06/23: mildly confused, nursing reports pt c/o visual disturbance in color. 06/24: reports patient intermittently confused, she is also concerned regarding his poor oral intake. ventriculostomy draining well. 06/25: confusion better, neuro stable overnight, with stable ICPs. (Claudia Camacho) Labs, Micro, & Vital Signs Results Date Time Temp Pulse Resp B/P (MAP) Pulse Ox O2 Delivery O2 Flow Rate FiO2 06/25/17 07:00 96 Room Air 06/25/17 06:00 48 06/25/17 04:00 98.6 48 20 166/99 (121) 97 06/25/17 04:00 48 06/25/17 02:00 50 06/25/17 00:00 98.5 50 21 155/83 (107) 95 06/25/17 00:00 61 06/24/17 22:52 18 06/24/17 22:00 55 06/24/17 20:00 98.5 52 24 147/82 (103) 97 06/24/17 20:00 52 06/24/17 19:00 98 Room Air 06/24/17 18:00 50 06/24/17 16:00 52 06/24/17 16:00 98.0 52 29 145/80 (101) 97 06/24/17 14:00 53 06/24/17 12:00 61 06/24/17 12:00 98.4 53 22 142/75 (97) 96 06/24/17 10:00 60 Constitutional Vital Signs Date Time Temp Pulse Resp B/P (MAP) Pulse Ox O2 Delivery O2 Flow Rate FiO2 06/25/17 07:00 96 Room Air 06/25/17 06:00 48 06/25/17 04:00 98.6 48 20 166/99 (121) 97 06/25/17 04:00 48 06/25/17 02:00 50 06/25/17 00:00 98.5 50 21 155/83 (107) 95 06/25/17 00:00 61 06/24/17 22:52 18 06/24/17 22:00 55 06/24/17 20:00 98.5 52 24 147/82 (103) 97 06/24/17 20:00 52 06/24/17 19:00 98 Room Air 06/24/17 18:00 50 06/24/17 16:00 52 06/24/17 16:00 98.0 52 29 145/80 (101) 97 06/24/17 14:00 53 06/24/17 12:00 61 06/24/17 12:00 98.4 53 22 142/75 (97) 96 06/24/17 10:00 60 (Claudia Camacho) Physical Exam Confusion better. Alert oriented x 3. Follows commands Surgical wound healing well, clean and dry. CN: pupils 3-4 mm bilaterally. EOMs intact Neck: limited ROM due to surgical incision Motor: moves all four extremities symmetrically Sensory: intact light touch x 4 Abdomen: soft, nontender Right ventriculostomy at 18 cm H20, draining blood tinged CSF. ICPs normal. (Claudia Camacho) Medications Current Medications Current Medications Medications (Trade) Dose Ordered Sig/Geovany Route PRN Reason Start Time Stop Time Status Last Admin Dose Admin Famotidine (Pepcid) 20 mg Q12HR PO 06/17/17 21:00 06/25/17 08:47 Albuterol/ Ipratropium (Duoneb Neb) 1 ampule Q4HR NEB PRN INH WHEEZING 06/17/17 16:00 Miscellaneous Information 1 Q361D XX 06/17/17 16:00 Chlorhexidine Gluconate (Chlorhexidine 2% Cloth) Taper DAILY@04 TOP 06/18/17 04:00 06/14/18 03:59 Chlorhexidine Gluconate (Chlorhexidine 2% Cloth) 3 pack UNSCH PRN TOP HYGIENIC CARE 06/17/17 16:00 Senna/Docusate Sodium (Shakira-Colace) 1 tab BID PO 06/17/17 21:00 06/25/17 08:47 Magnesium Hydroxide (Milk Of Magnesia Liq) 30 ml Q12H PRN PO MILD - MODERATE CONSTIPATION 06/17/17 16:00 06/23/17 12:01 Sennosides (Senokot) 17.2 mg Q12H PRN PO MODERATE - SEVERE CONSTIPATION 06/17/17 16:00 Lactulose (Lactulose Liq) 30 ml DAILY PRN PO SEVERE CONSITIPATION 06/17/17 16:00 06/23/17 12:01 Fluticasone Propionate (Flonase Cortes Spr) 1 spray BID EACH NARE 06/17/17 21:00 06/25/17 08:50 Nebivolol (Bystolic) 10 mg HS PO 06/17/17 21:00 06/24/17 20:54 Spironolactone (Aldactone) 25 mg DAILY PO 06/18/17 09:00 06/25/17 08:47 Miscellaneous (Pill Splitter) 1 ea UNSCH PRN OTHER SEE LABEL COMMENTS 06/17/17 16:30 Hydralazine HCl (Apresoline Inj) 10 mg Q1HR PRN IV PUSH SBP greater than 140mm Hg 06/17/17 18:45 06/23/17 19:13 Nitroglycerin (Nitroglycerin 2% Oint) 2 inch Q6HR PRN TOPICAL SBP>140, DBP>90 06/17/17 18:30 Lisinopril (Prinivil) 40 mg BID PO 06/17/17 21:00 06/25/17 08:47 Dextrose (D50w (Vial) Inj) 50 ml UNSCH PRN IV HYPOGLYCEMIA-SEE COMMENTS 06/17/17 19:00 Glucagon (Glucagon Inj) 1 mg UNSCH PRN OTHER HYPOGLYCEMIA-SEE COMMENTS 06/17/17 19:00 Insulin Human Regular (NovoLIN R SUPPLEMENTAL SCALE) 1 ACHS SLIDING SCALE SQ 06/17/17 21:00 06/22/17 16:13 Clevidipine 50 ml @ 2 mls/hr TITRATE PRN IV Blood Pressure Management 06/17/17 19:45 Potassium Chloride/Sodium Chloride 1,000 ml @ 30 mls/hr Q24H IV 06/20/17 16:00 06/23/17 08:00 IV Flush (NS Flush) 2 ml UNSCH PRN IVF FLUSH AFTER USING IV ACCESS 06/20/17 15:45 IV Flush (NS Flush) 2 ml BID IVF 06/20/17 21:00 06/25/17 08:50 Enoxaparin Sodium (Lovenox Inj) 40 mg Q24H SQ 06/22/17 15:45 06/24/17 15:24 Bisacodyl (Dulcolax Supp) 10 mg DAILY PRN RECTAL CONSTIPATION 06/20/17 15:45 Docusate Sodium (Colace) 100 mg BID PO 06/20/17 21:00 06/25/17 08:47 Pantoprazole Sodium (Protonix Inj) 40 mg DAILY IVP 06/21/17 09:00 06/25/17 08:48 Ondansetron HCl (Zofran Inj) 4 mg Q6H PRN IV NAUSEA OR VOMITING 06/20/17 15:45 06/23/17 20:20 Calcium Gluconate (Calcium Gluconate Inj) 1 gm UNSCH PRN IV SEE LABEL COMMENTS 06/20/17 15:45 Potassium Chloride 100 ml @ 50 mls/hr UNSCH PRN IV POTASSIUM LESS THAN 4 06/20/17 15:45 Magnesium Sulfate 4 gm/Sodium Chloride 108 ml @ 108 mls/hr UNSCH PRN IV MAGNESIUM LESS THAN 2 06/20/17 15:45 Acetaminophen (Tylenol) 650 mg Q4H PRN PO TEMPERATURE > 101.5 F 06/20/17 15:45 06/23/17 15:53 Hydromorphone HCl (Dilaudid Pf Inj) 0.5 mg Q4H PRN IV PUSH pain 1-5 06/20/17 22:30 06/23/17 20:20 Hydromorphone HCl (Dilaudid Pf Inj) 1 mg Q2H PRN IV PUSH pain 6-10 06/21/17 11:30 06/22/17 09:59 Nicardipine HCl 50 mg/Sodium Chloride 520 ml @ 52 mls/hr TITRATE PRN IV Blood Pressure Management 06/21/17 12:30 06/22/17 18:36 Lorazepam (Ativan Inj) 1 mg Q6H PRN IV PUSH agitation 06/22/17 09:45 Insulin Detemir (Levemir Inj) 5 units Q12H SQ 06/22/17 12:30 06/22/17 13:19 Clonidine (Catapres) 0.2 mg Q6H PRN PO SBP greater than 160mm Hg 06/23/17 21:30 06/25/17 04:54 Amlodipine Besylate (Norvasc) 10 mg DAILY PO 06/24/17 09:00 06/25/17 08:47 Acetaminophen (Tylenol) 650 mg Q6H PRN PO PRN PAIN SCALE 1-6 06/24/17 04:30 06/24/17 21:52 Dexamethasone Sodium Phosphate (Decadron Inj) 2 mg Q6H IV PUSH 06/24/17 10:00 06/25/17 09:16 Mannitol (Mannitol Inj) 25 gm Q6H IV 06/25/17 03:00 (Claudia Camacho) Medical Decision Making MDM Remarks 67 y/o male with fourth ventricle mass with surrounding hemorrhage s/p suboccipital craniectomy, C1 laminectomy, microsurgical resection of fourth ventricle ependymoma, placement of right ventriculostomy drain on 06/20/16 (Claudia Camacho) Plan Plan Remarks EVD clamped today, cont ICP monitoring and obtain follow up CT Head tomorrow cont current care cont Decadron weaning, Protonix for ulcer prophylaxis cont therapy, and rehab efforts cont lovenox for dvt prophylaxis, SCDs and TEDs encouraged oral intake, public safety dispatcher consulted follow up pathology (Claudia Camacho) Attending Statement The exam, history, and the medical decision-making described in the above note were completed with the assistance of the mid-level provider. I reviewed and agree with the findings presented. I attest that I had a [id number] encounter with the patient on the same day, and personally performed and documented my assessment and findings in the medical record. (Steven Hunter MD) Claudia Camacho Jun 25, 2017 10:02 Steven Hunter MD Jun 29, 2017 17:45
[2017-06-25] MEDS: ENOXAPARIN SODIUM 40 MG/0.4 ML SYRINGE SQ SCH (16:01)
[2017-06-25] MEDS: NEBIVOLOL 10 MG TAB PO SCH (20:35)
[2017-06-25] MEDS ORDERED: MANNITOL INJ 125 ML IV SCH (23:00)
[2017-06-25] MEDS: MANNITOL INJ 125 ML IV SCH (23:01)
[2017-06-26] VITALS (12 sets, daily range): BP systolic 110–182; BP diastolic 68–92; PULSE 44–58; RESP 18–23; TEMP 97–98.1; O2SAT 96–100
[2017-06-26] MEDS: cloNIDine HCL 0.1 MG TAB PO PRN (00:14)
[2017-06-26] MEDS: INSULIN DETEMIR 100 UNITS/ML VIAL SQ SCH ×2 (00:20→12:30)
[2017-06-26] MEDS: hydrALAZINE HCL 20 MG/ML VIAL IV PUSH PRN (01:20)
[2017-06-26] MEDS: CHLORHEXIDINE GLUCONATE 2 % 1 PACK (2 CLOTHS) TOP SCH (04:00)
[2017-06-26] MEDS: DEXAMETHASONE SOD PHOS 4 MG/ML VIAL IV PUSH SCH ×4 (05:19→22:06)
--- NOTE | 2017-06-26 05:22 | RADRPT ---
EXAM DATE/TIME: 06/26/2017 04:07 [place] COMPARISON: CT BRAIN W/O CONTRAST, June 22, 2017, 4:20. INDICATIONS : Follow up hemorrhage. RADIATION DOSE: 60.40 CTDIvol (mGy) ; Tabletop CT Head MEDICAL HISTORY : Hypertension. Carcinoma, prostate. SURGICAL HISTORY : Prostatectomy. ENCOUNTER: Subsequent ACUITY: 4 - 6 days PAIN SCALE: 0/10 LOCATION: cranial TECHNIQUE: Multiple contiguous axial images were obtained of the head. Using automated exposure control and adj ustment of the mA and/or kV according to patient size, radiation dose was kept as low as reasonably a chievable to obtain optimal diagnostic quality images. DICOM format image data is available electro nically for review and comparison. FINDINGS: Since the previous examination the pneumocephaly has considerably decreased. Very small volume intrav entricular hemorrhage within the atria of the lateral ventricles is less pronounced than the prior st udy. No new source of hemorrhage observed. Right-sided ventriculostomy is stable as are the size of t he ventricles. Postsurgical changes involving the occipital bone and adjacent cerebellar hemispheres. CONCLUSION: 1. Reduction in size of the pneumocephaly as well as the intraventricular hemorrhage. 2. Stable postsurgical changes involving the posterior cranial fossa. 3. Ventriculostomy with stable ventricular size. Kendrick Faye Jr., MD on June 26, 2017 at 5:18 Board Certified Radiologist. This report was verified electronically.
[2017-06-26] MEDS: MANNITOL INJ 125 ML IV SCH ×2 (06:13→11:00)
[2017-06-26] MEDS: NS + KCL 20 MEQ INJ 1,000 ML IV SCH (08:00)
[2017-06-26] MEDS: INSULIN NovoLIN REGULAR SUPPLEMENTAL SCALE SQ SCH ×3 (08:00→17:00)
[2017-06-26] MEDS: DOCUSATE SODIUM 100 MG CAP PO SCH ×2 (09:00→22:06)
[2017-06-26] MEDS: DOCUSATE SODIUM 50 MG/SENNA 8.6 MG TAB PO SCH ×2 (09:00→22:26)
[2017-06-26] MEDS: LISINOPRIL 20 MG TAB PO SCH ×2 (09:31→22:26)
[2017-06-26] MEDS: SPIRONOLACTONE 25 MG TAB PO SCH (09:31)
[2017-06-26] MEDS: FAMOTIDINE 20 MG TAB PO SCH ×2 (09:31→22:06)
[2017-06-26] MEDS: FLUTICASONE PROPIONATE 50 MCG/ACT 16 GM NASAL SPRAY EACH NARE SCH ×2 (09:32→22:26)
[2017-06-26] MEDS: SODIUM CHLORIDE 0.9% FLUSH 5 ML FLUSH IVF SCH ×2 (09:32→22:26)
--- NOTE | 2017-06-26 11:11 | HHI.NSPN ---
(Claudia Camacho) Note Status Status: Progress Note (Claudia Camacho) Interval History Interval History This is a 67-year-old male with history of arterial hypertension and prostate Ca. He present to the [facility] ER with vertigo. He's been having vertigo for about 4 weeks but is getting progressively worse. The vertigo is aggravated by movement of the head by standing.. It has been worse last couple of days, it has been quite severe. He's having a headache behind both of his eyes. He says he is unable to stand without falling over. He has a history of prostate cancer and has had a radical prostatectomy. He says he has had recurrent urinary tract infections. He has had multiple surgeries including multiple orthopedic procedures as well as appendectomy and hernia. He was diagnosed with an ear infection and has been treated with doxycycline for 2 weeks. MRI of the brain revealed a 1.6 x 3.3 x 2.4 cm mass arising from the fourth ventricle with ventricular enlargement.He was placed dexamethasone 4 mg IV every 6 hours He has been hypertensive. He reports diffuse headaches [address] brain revealed small focal hemorrhagic component was left 9 x 15 mm. Neurosurgical consultation was requested 06/19: awaiting cerebral angiography today. no new neurological complaints. 06/21: s/p Stereotactic, image-guided suboccipital craniectomy, C1 laminectomy, microsurgical resection of fourth ventricle ependymoma. Microsurgical dissection by Dr. Hunter on 06/20. Patient awake and alert. Received morphine last night which reportedly made him very agitated and restless. This was changed to Dilaudid and he is less restless. Complains of headache. No nausea or vomiting. No numbness or paresthesias in the extremities. Ventriculostomy drain is in place at 3 cm of H2O. 06/22: Pt reportedly got confused last night and pulled out lines. He has intermittent pain responds to medication. Currently doing well. Follows commands and oriented. 06/23: mildly confused, nursing reports pt c/o visual disturbance in color. 06/24: reports patient intermittently confused, she is also concerned regarding his poor oral intake. ventriculostomy draining well. 06/25: confusion better, neuro stable overnight, with stable ICPs. 06/26: eager to go home, mild headaches, clinically stable overnight following EVD clamping. f/u CT Head this am completed. (Claudia Camacho) Labs, Micro, & Vital Signs Results Date Time Temp Pulse Resp B/P (MAP) Pulse Ox O2 Delivery O2 Flow Rate FiO2 06/26/17 06:00 48 06/26/17 04:00 50 06/26/17 04:00 98.1 50 23 155/68 (97) 97 06/26/17 02:00 52 06/26/17 01:06 96 06/26/17 00:00 97.9 50 18 182/88 (119) 98 06/25/17 22:00 52 06/25/17 20:45 95 21 06/25/17 20:00 52 06/25/17 20:00 98.4 52 18 148/88 (108) 99 06/25/17 19:00 96 Room Air 06/25/17 18:00 47 06/25/17 16:00 50 06/25/17 16:00 97.9 50 16 144/83 (103) 99 06/25/17 14:00 56 06/25/17 12:00 52 06/25/17 12:00 97.7 52 16 157/81 (106) 97 06/27/17 07:00 Intake Total 121 ml Balance 121 ml Constitutional Vital Signs Date Time Temp Pulse Resp B/P (MAP) Pulse Ox O2 Delivery O2 Flow Rate FiO2 06/26/17 06:00 48 06/26/17 04:00 50 06/26/17 04:00 98.1 50 23 155/68 (97) 97 06/26/17 02:00 52 06/26/17 01:06 96 06/26/17 00:00 97.9 50 18 182/88 (119) 98 06/25/17 22:00 52 06/25/17 20:45 95 21 06/25/17 20:00 52 06/25/17 20:00 98.4 52 18 148/88 (108) 99 06/25/17 19:00 96 Room Air 06/25/17 18:00 47 06/25/17 16:00 50 06/25/17 16:00 97.9 50 16 144/83 (103) 99 06/25/17 14:00 56 06/25/17 12:00 52 06/25/17 12:00 97.7 52 16 157/81 (106) 97 06/27/17 07:00 Intake Total 121 ml Balance 121 ml (Claudia Camacho) Physical Exam Confusion better. Sitting up in chair. Alert oriented x 3. Follows commands Surgical wound healing well, clean and dry, dressing in place. CN: pupils 3-4 mm bilaterally. EOMs intact Neck: limited ROM due to surgical incision Motor: moves all four extremities symmetrically Sensory: intact light touch x 4 No swelling to extremities Abdomen: soft, nontender Right ventriculostomy drain removed. (Claudia Camacho) Medications Current Medications Current Medications Medications (Trade) Dose Ordered Sig/Geovany Route PRN Reason Start Time Stop Time Status Last Admin Dose Admin Famotidine (Pepcid) 20 mg Q12HR PO 06/17/17 21:00 06/26/17 09:31 Albuterol/ Ipratropium (Duoneb Neb) 1 ampule Q4HR NEB PRN INH WHEEZING 06/17/17 16:00 Miscellaneous Information 1 Q361D XX 06/17/17 16:00 Chlorhexidine Gluconate (Chlorhexidine 2% Cloth) Taper DAILY@04 TOP 06/18/17 04:00 06/14/18 03:59 Chlorhexidine Gluconate (Chlorhexidine 2% Cloth) 3 pack UNSCH PRN TOP HYGIENIC CARE 06/17/17 16:00 Senna/Docusate Sodium (Shakira-Colace) 1 tab BID PO 06/17/17 21:00 06/25/17 08:47 Magnesium Hydroxide (Milk Of Magnesia Liq) 30 ml Q12H PRN PO MILD - MODERATE CONSTIPATION 06/17/17 16:00 06/23/17 12:01 Sennosides (Senokot) 17.2 mg Q12H PRN PO MODERATE - SEVERE CONSTIPATION 06/17/17 16:00 Lactulose (Lactulose Liq) 30 ml DAILY PRN PO SEVERE CONSITIPATION 06/17/17 16:00 06/23/17 12:01 Fluticasone Propionate (Flonase Cortes Spr) 1 spray BID EACH NARE 06/17/17 21:00 06/26/17 09:32 Nebivolol (Bystolic) 10 mg HS PO 06/17/17 21:00 06/24/17 20:54 Spironolactone (Aldactone) 25 mg DAILY PO 06/18/17 09:00 06/26/17 09:31 Miscellaneous (Pill Splitter) 1 ea UNSCH PRN OTHER SEE LABEL COMMENTS 06/17/17 16:30 Hydralazine HCl (Apresoline Inj) 10 mg Q1HR PRN IV PUSH SBP greater than 140mm Hg 06/17/17 18:45 06/26/17 01:20 Nitroglycerin (Nitroglycerin 2% Oint) 2 inch Q6HR PRN TOPICAL SBP>140, DBP>90 06/17/17 18:30 Lisinopril (Prinivil) 40 mg BID PO 06/17/17 21:00 06/26/17 09:31 Dextrose (D50w (Vial) Inj) 50 ml UNSCH PRN IV HYPOGLYCEMIA-SEE COMMENTS 06/17/17 19:00 Glucagon (Glucagon Inj) 1 mg UNSCH PRN OTHER HYPOGLYCEMIA-SEE COMMENTS 06/17/17 19:00 Insulin Human Regular (NovoLIN R SUPPLEMENTAL SCALE) 1 ACHS SLIDING SCALE SQ 06/17/17 21:00 06/22/17 16:13 Clevidipine 50 ml @ 2 mls/hr TITRATE PRN IV Blood Pressure Management 06/17/17 19:45 Potassium Chloride/Sodium Chloride 1,000 ml @ 30 mls/hr Q24H IV 06/20/17 16:00 06/23/17 08:00 IV Flush (NS Flush) 2 ml UNSCH PRN IVF FLUSH AFTER USING IV ACCESS 06/20/17 15:45 IV Flush (NS Flush) 2 ml BID IVF 06/20/17 21:00 06/26/17 09:32 Enoxaparin Sodium (Lovenox Inj) 40 mg Q24H SQ 06/22/17 15:45 06/25/17 16:01 Bisacodyl (Dulcolax Supp) 10 mg DAILY PRN RECTAL CONSTIPATION 06/20/17 15:45 Docusate Sodium (Colace) 100 mg BID PO 06/20/17 21:00 06/25/17 08:47 Ondansetron HCl (Zofran Inj) 4 mg Q6H PRN IV NAUSEA OR VOMITING 06/20/17 15:45 06/23/17 20:20 Calcium Gluconate (Calcium Gluconate Inj) 1 gm UNSCH PRN IV SEE LABEL COMMENTS 06/20/17 15:45 Potassium Chloride 100 ml @ 50 mls/hr UNSCH PRN IV POTASSIUM LESS THAN 4 06/20/17 15:45 Magnesium Sulfate 4 gm/Sodium Chloride 108 ml @ 108 mls/hr UNSCH PRN IV MAGNESIUM LESS THAN 2 06/20/17 15:45 Acetaminophen (Tylenol) 650 mg Q4H PRN PO TEMPERATURE > 101.5 F 06/20/17 15:45 06/23/17 15:53 Hydromorphone HCl (Dilaudid Pf Inj) 0.5 mg Q4H PRN IV PUSH pain 1-5 06/20/17 22:30 06/23/17 20:20 Hydromorphone HCl (Dilaudid Pf Inj) 1 mg Q2H PRN IV PUSH pain 6-10 06/21/17 11:30 06/22/17 09:59 Nicardipine HCl 50 mg/Sodium Chloride 520 ml @ 52 mls/hr TITRATE PRN IV Blood Pressure Management 06/21/17 12:30 06/22/17 18:36 Lorazepam (Ativan Inj) 1 mg Q6H PRN IV PUSH agitation 06/22/17 09:45 Insulin Detemir (Levemir Inj) 5 units Q12H SQ 06/22/17 12:30 06/22/17 13:19 Clonidine (Catapres) 0.2 mg Q6H PRN PO SBP greater than 160mm Hg 06/23/17 21:30 06/26/17 00:14 Amlodipine Besylate (Norvasc) 10 mg DAILY PO 06/24/17 09:00 06/26/17 09:31 Acetaminophen (Tylenol) 650 mg Q6H PRN PO PRN PAIN SCALE 1-6 06/24/17 04:30 06/24/17 21:52 Dexamethasone Sodium Phosphate (Decadron Inj) 2 mg Q6H IV PUSH 06/24/17 10:00 06/26/17 09:31 Mannitol 125 ml @ 125 mls/hr Q6H IV 06/25/17 23:00 06/26/17 06:13 (Claudia Camacho) Medical Decision Making MDM Remarks 67 y/o male with fourth ventricle mass with surrounding hemorrhage s/p suboccipital craniectomy, C1 laminectomy, microsurgical resection of fourth ventricle ependymoma, placement of right ventriculostomy drain on 06/20/16 (Claudia Camacho) Plan Plan Remarks f/u CT Head this am with stable ventricle size ventriculostomy drain removed cont current care cont Decadron weaning, Protonix for ulcer prophylaxis cont therapy, and rehab efforts cont lovenox for dvt prophylaxis, SCDs and ANA M follow up pathology - still pending posterior cervical sutures out 07/04/17 clear to transfer out of unit to 5N (Claudia Camacho) Attending Statement The exam, history, and the medical decision-making described in the above note were completed with the assistance of the mid-level provider. I reviewed and agree with the findings presented. I attest that I had a [id number] encounter with the patient on the same day, and personally performed and documented my assessment and findings in the medical record. (Steven Hunter MD) Claudia Camacho Jun 26, 2017 11:03 Steven Hunter MD Jun 29, 2017 17:51
[2017-06-26] MEDS: ENOXAPARIN SODIUM 40 MG/0.4 ML SYRINGE SQ SCH (15:45)
--- NOTE | 2017-06-26 18:36 | HHI.PR ---
Subjective Remarks Patient c/o mild headache as per RN upset because he has not been moved from room denies fevers/chills denies diarrhea, nausea states that he is good as per RN patient has been refusing insuin Objective Vitals Vital Signs Date Time Temp Pulse Resp B/P (MAP) Pulse Ox O2 Delivery O2 Flow Rate FiO2 06/26/17 16:00 98.0 56 23 120/72 (88) 100 06/26/17 16:00 56 06/26/17 14:00 56 06/26/17 12:00 57 06/26/17 12:00 97.7 57 19 110/92 (98) 98 06/26/17 10:00 53 06/26/17 08:00 44 06/26/17 08:00 97.0 44 20 120/73 (89) 99 06/26/17 07:00 99 Room Air 06/26/17 06:00 48 06/26/17 04:00 50 06/26/17 04:00 98.1 50 23 155/68 (97) 97 06/26/17 02:00 52 06/26/17 01:06 96 06/26/17 00:00 97.9 50 18 182/88 (119) 98 06/25/17 22:00 52 06/25/17 20:45 95 21 06/25/17 20:00 52 06/25/17 20:00 98.4 52 18 148/88 (108) 99 06/25/17 19:00 96 Room Air I/O 06/25/17 06/25/17 06/25/17 06/26/17 06/26/17 06/26/17 07:00 15:00 23:00 07:00 15:00 23:00 Intake Total 240 ml 1100 ml 585 ml 371 ml 330 ml Output Total 1000 ml 1050 ml 1300 ml 225 ml 185 ml Balance -760 ml 50 ml -715 ml 146 ml 145 ml Intake Oral 240 ml 1100 ml 480 ml 250 ml 330 ml IV Total 105 ml 121 ml Output Urine Total 1000 ml 1050 ml 1300 ml 225 ml 185 ml Drainage Total 0 ml # Voids 3 2 # Bowel Movements 0 1 0 1 Result Diagram: 06/26/17 0420 Imaging Last Impressions Head CT 06/26/17 06 Signed Impressions: Service Date/Time: June 04:07 - CONCLUSION: 1. Reduction in size of the pneumocephaly as well as the intraventricular hemorrhage. 2. Stable postsurgical changes involving the posterior cranial fossa. 3. Ventriculostomy with stable ventricular size. Kendrick Faye Jr., MD Chest X-Ray 06/20/17 1537 Signed Impressions: Service Date/Time: Tuesday, June 20, 2017 15:56 - CONCLUSION: 1. Left basilar effusion and atelectasis new when compared to previous Jak Linares MD Cerebral Arteriogram 06/19/17 0000 Signed Impressions: Service Date/Time: June 10:38 - CONCLUSION: The exam demonstrates questionable, faint visualization of the lesion on the capillary phase imaging with injection of the right vertebral. This appears to feed via the right PICA. For the most part, this lesion appears hypovascular. Jak Linares MD Brain MRI 06/19/17 0000 Signed Impressions: Service Date/Time: June 17:37 - CONCLUSION: Stealth protocol for purposes of localizing the known fourth ventricle mass. The lesion measures approximately 19 x 22 x 33 mm and has heterogeneous enhancement. Joe Smith MD Chest CT 06/18/17 0000 Signed Impressions: Service Date/Time: Sunday, June 18, 2017 16:54 - CONCLUSION: Negative for primary or metastatic disease. Lg Lianres MD FACR Abdomen/Pelvis CT 06/18/17 0000 Signed Impressions: Service Date/Time: Sunday, June 18, 2017 16:54 - CONCLUSION: 1. Possible mass of the cecum. If not done recently, attempted direct visualization with colonoscopy recommended. 2. Previous prostatectomy. 3. No evidence of bony metastatic disease. 4. Patchy cortical thinning/scarring of both kidneys. No obstructive uropathy. Joe Smith MD Objective Remarks GENERAL: 67-year-old male, currently resting in bed SKIN: Warm and dry. HEAD: Atraumatic. Normocephalic. EYES: Pupils equal and round, 2 mm, reactive. No scleral icterus. No injection or drainage. ENT: No nasal bleeding or discharge. Mucous membranes pink and moist. NECK: Trachea midline. Airway widely patent. CARDIOVASCULAR: RRR. S1, S2 no S4. RESPIRATORY: No accessory muscle use. Clear to auscultation. Breath sounds equal bilaterally. No adventitious sounds. GASTROINTESTINAL: Abdomen soft, non-tender, nondistended. BS active. MUSCULOSKELETAL: Extremities well perfused, warm. NEUROLOGICAL: Alert, cooperative. Motor grossly within normal limits. Five out of 5 muscle strength in the arms and legs. Conversant. Medications and IVs Current Medications Medications (Trade) Dose Ordered Sig/Geovany Route Start Time Stop Time Status Last Admin (Pepcid) 20 mg Q12HR PO 06/17/17 21:00 06/26/17 22:06 (Duoneb Neb) 1 ampule Q4HR NEB PRN INH 06/17/17 16:00 Miscellaneous Information 1 Q361D XX 06/17/17 16:00 (Chlorhexidine 2% Cloth) Taper DAILY@04 TOP 06/18/17 04:00 06/14/18 03:59 (Chlorhexidine 2% Cloth) 3 pack UNSCH PRN TOP 06/17/17 16:00 (Shakira-Colace) 1 tab BID PO 06/17/17 21:00 06/25/17 08:47 (Milk Of Magnesia Liq) 30 ml Q12H PRN PO 06/17/17 16:00 06/23/17 12:01 (Senokot) 17.2 mg Q12H PRN PO 06/17/17 16:00 (Lactulose Liq) 30 ml DAILY PRN PO 06/17/17 16:00 06/23/17 12:01 (Flonase Cortes Spr) 1 spray BID EACH NARE 06/17/17 21:00 06/26/17 09:32 (Bystolic) 10 mg HS PO 06/17/17 21:00 06/26/17 22:19 (Aldactone) 25 mg DAILY PO 06/18/17 09:00 06/26/17 09:31 (Pill Splitter) 1 ea UNSCH PRN OTHER 06/17/17 16:30 (Apresoline Inj) 10 mg Q1HR PRN IV PUSH 06/17/17 18:45 06/26/17 01:20 (Nitroglycerin 2% Oint) 2 inch Q6HR PRN TOPICAL 06/17/17 18:30 (Prinivil) 40 mg BID PO 06/17/17 21:00 06/26/17 22:26 (D50w (Vial) Inj) 50 ml UNSCH PRN IV 06/17/17 19:00 (Glucagon Inj) 1 mg UNSCH PRN OTHER 06/17/17 19:00 Clevidipine 50 ml @ 2 mls/hr TITRATE PRN IV 06/17/17 19:45 (NS Flush) 2 ml UNSCH PRN IVF 06/20/17 15:45 (NS Flush) 2 ml BID IVF 06/20/17 21:00 06/26/17 22:26 (Lovenox Inj) 40 mg Q24H SQ 06/22/17 15:45 06/26/17 15:45 (Dulcolax Supp) 10 mg DAILY PRN RECTAL 06/20/17 15:45 (Colace) 100 mg BID PO 06/20/17 21:00 06/26/17 22:06 (Zofran Inj) 4 mg Q6H PRN IV 06/20/17 15:45 06/23/17 20:20 (Calcium Gluconate Inj) 1 gm UNSCH PRN IV 06/20/17 15:45 Potassium Chloride 100 ml @ 50 mls/hr UNSCH PRN IV 06/20/17 15:45 Magnesium Sulfate 4 gm/Sodium Chloride 108 ml @ 108 mls/hr UNSCH PRN IV 06/20/17 15:45 (Tylenol) 650 mg Q4H PRN PO 06/20/17 15:45 06/26/17 18:46 (Dilaudid Pf Inj) 0.5 mg Q4H PRN IV PUSH 06/20/17 22:30 06/23/17 20:20 (Dilaudid Pf Inj) 1 mg Q2H PRN IV PUSH 06/21/17 11:30 06/26/17 22:26 Nicardipine HCl 50 mg/Sodium Chloride 520 ml @ 52 mls/hr TITRATE PRN IV 06/21/17 12:30 06/22/17 18:36 (Ativan Inj) 1 mg Q6H PRN IV PUSH 06/22/17 09:45 (Levemir Inj) 5 units Q12H SQ 06/22/17 12:30 06/27/17 00:17 (Catapres) 0.2 mg Q6H PRN PO 06/23/17 21:30 06/26/17 00:14 (Norvasc) 10 mg DAILY PO 06/24/17 09:00 06/26/17 09:31 (Tylenol) 650 mg Q6H PRN PO 06/24/17 04:30 06/24/17 21:52 (Decadron Inj) 1 mg Q6H IV PUSH 06/26/17 16:00 06/26/17 22:06 (NovoLIN R SUPPLEMENTAL SCALE) 1 ACHS SLIDING SCALE SQ 06/27/17 08:00 Vascular Central Line Catheter: No Date of Insertion: Jun 18, 2017 Line: Central Venous Catheter Side: Right Location: Internal, Jugular A/P Problem List: (1) Brain tumor ICD Code: D49.6 - Neoplasm of unspecified behavior of brain Status: Acute (2) Allergic rhinitis ICD Code: J30.9 - Allergic rhinitis, unspecified (3) Cystitis ICD Code: N30.90 - Cystitis, unspecified without hematuria (4) Hyperglycemia ICD Code: R73.9 - Hyperglycemia, unspecified (5) Leukocytosis ICD Code: D72.829 - Elevated white blood cell count, unspecified (6) Hypertension ICD Code: I10 - Essential (primary) hypertension (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 Differential includes ependymoma, choroid plexus papilloma versus other Dr. Hunter/neurosurgery. 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 Acetaminophen 650 mg every 6 hours when necessary pain 1 through 2/fever greater than 100 Hydromorphone 0.2-0.5 mg every 4 hours when necessary pain 3-10. Patient states he has taken this before. Noted allergies to hydrocodone and oxycodone. CT brain revealed 9 x 15 mm focal hemorrhagic component. CT head 06/22 stable exam with postsurgical changes 06/26 sp suboccipital craniectomy with excision of cerebellar mass. Management as per neurosurgery. CV: Hypertension Home medications include nebivolol 10 mg a night, (increase from 10 to 20 mg daily) amlodipine 10 mg daily , continue lisinopril 40 mg by mouth twice a day. These been continued with holding parameters for nebivolol for heart rate Continued spironolactone 25 mg by mouth twice a day Off Clevidipine drip. Clonidine when necessary. As needed Nitropaste/hydralazine to keep systolic blood pressure was 140 06/26 BP stable. Continue management as above. Resp: Nasal cannula to maintain saturations greater than equal to 92% Incentive spirometry while awake As needed albuterol/ipratropium aerosols every 4 hours when necessary dyspnea Chest x-ray 06/17 revealed no acute findings GI: Tolerating current po diet Famotidine for GI prophylaxis Docusate sodium/Senokot 1 tablet twice a day for bowel regimen : Cystitis History of prostate cancer status post prostatectomy Flores catheter not indicated currently Endo: Hyperglycemia Sliding-scale insulin to maintain euglycemia Levemir 5 units bid until steroids off. 06/26 Blood sugars uncontrolled with blood sugar elevated into the 200's however patient refusing insulin coverage. Renal: Creatinine currently within normal limits Monitor urine output Accurate I's and O's Currently normal saline at 30 cc an hour Heme: Leukocytosis Monitor CBC daily. Follow trends. Follow-up on [facility] ID: Uncomplicated cystitis Treat with 3 days aztreonam 1 g IV every 12 hours. Cultures pending Discontinued doxycycline 06/26 urine culture negative x 48 hrs. FEN: Replace electrolytes as clinically indicated MSK: PT OT evaluate and treat Access Utilize peripheral IV. Central line if indicated Prophylaxis GI - famotidine DVT - SCD/Lovenox Problem Qualifiers (1) Allergic rhinitis: Qualified Codes: J30.9 - Allergic rhinitis, unspecified (2) Leukocytosis: Qualified Codes: D72.829 - Elevated white blood cell count, unspecified (3) Hypertension: Qualified Codes: I10 - Essential (primary) hypertension Arnoldo Rooney MD Jun 26, 2017 18:36
[2017-06-26] MEDS: ACETAMINOPHEN 325 MG TAB PO PRN (18:46)
[2017-06-26] MEDS: NEBIVOLOL 10 MG TAB PO SCH (22:19)
--- NOTE | 2017-06-26 22:25 | HHI.PR ---
Subjective Remarks DRAFT pt not seen Objective Vitals Vital Signs Date Time Temp Pulse Resp B/P (MAP) Pulse Ox O2 Delivery O2 Flow Rate FiO2 06/26/17 21:27 97.7 52 18 145/70 (95) 97 06/26/17 19:00 99 Room Air 06/26/17 18:00 58 06/26/17 16:00 98.0 56 23 120/72 (88) 100 06/26/17 16:00 56 06/26/17 14:00 56 06/26/17 12:00 57 06/26/17 12:00 97.7 57 19 110/92 (98) 98 06/26/17 10:00 53 06/26/17 08:00 44 06/26/17 08:00 97.0 44 20 120/73 (89) 99 06/26/17 07:00 99 Room Air 06/26/17 06:00 48 06/26/17 04:00 50 06/26/17 04:00 98.1 50 23 155/68 (97) 97 06/26/17 02:00 52 06/26/17 01:06 96 06/26/17 00:00 97.9 50 18 182/88 (119) 98 I/O 06/25/17 06/25/17 06/25/17 06/26/17 06/26/17 06/26/17 07:00 15:00 23:00 07:00 15:00 23:00 Intake Total 240 ml 1100 ml 585 ml 371 ml 380 ml Output Total 1000 ml 1050 ml 1300 ml 225 ml 185 ml Balance -760 ml 50 ml -715 ml 146 ml 195 ml Intake Oral 240 ml 1100 ml 480 ml 250 ml 380 ml IV Total 105 ml 121 ml Output Urine Total 1000 ml 1050 ml 1300 ml 225 ml 185 ml Drainage Total 0 ml # Voids 3 2 # Bowel Movements 0 1 0 1 Result Diagram: 06/26/17 0420 Imaging Last Impressions Head CT 06/26/17 06 Signed Impressions: Service Date/Time: June 04:07 - CONCLUSION: 1. Reduction in size of the pneumocephaly as well as the intraventricular hemorrhage. 2. Stable postsurgical changes involving the posterior cranial fossa. 3. Ventriculostomy with stable ventricular size. Kendrick Faye Jr., MD Chest X-Ray 06/20/17 [id number] Signed Impressions: Service Date/Time: Tuesday, June 20, 2017 15:56 - CONCLUSION: 1. Left basilar effusion and atelectasis new when compared to previous Jak Linares MD Cerebral Arteriogram 06/19/17 0000 Signed Impressions: Service Date/Time: June 10:38 - CONCLUSION: The exam demonstrates questionable, faint visualization of the lesion on the capillary phase imaging with injection of the right vertebral. This appears to feed via the right PICA. For the most part, this lesion appears hypovascular. Jak Linares MD Brain MRI 06/19/17 0000 Signed Impressions: Service Date/Time: June 17:37 - CONCLUSION: Stealth protocol for purposes of localizing the known fourth ventricle mass. The lesion measures approximately 19 x 22 x 33 mm and has heterogeneous enhancement. Joe Smith MD Chest CT 06/18/17 0000 Signed Impressions: Service Date/Time: Sunday, June 18, 2017 16:54 - CONCLUSION: Negative for primary or metastatic disease. Lg Linares MD FACR Abdomen/Pelvis CT 06/18/17 0000 Signed Impressions: Service Date/Time: Sunday, June 18, 2017 16:54 - CONCLUSION: 1. Possible mass of the cecum. If not done recently, attempted direct visualization with colonoscopy recommended. 2. Previous prostatectomy. 3. No evidence of bony metastatic disease. 4. Patchy cortical thinning/scarring of both kidneys. No obstructive uropathy. 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 and Right frontal Ad hole with placement of a ventriculostomy catheter Date of Insertion: Jun 18, 2017 Line: Central Venous Catheter Side: Right Location: Internal, Jugular A/P Problem List: (1) Allergic rhinitis ICD Code: J30.9 - Allergic rhinitis, unspecified (2) Cystitis ICD Code: N30.90 - Cystitis, unspecified without hematuria (3) Hyperglycemia ICD Code: R73.9 - Hyperglycemia, unspecified (4) Leukocytosis ICD Code: D72.829 - Elevated white blood cell count, unspecified (5) Hypertension ICD Code: I10 - Essential (primary) hypertension (6) Severe enlargement of fourth ventricle ICD Code: G93.89 - Other specified disorders of brain (7) Brain tumor ICD Code: D49.6 - Neoplasm of unspecified behavior of brain Status: Acute Assessment and Plan Neuro/Psych: Fourth ventricle mass Headaches NOS MRI brain 06/17 revealed a 1.6 3.3 x 2.4 cm mass in the 4 th ventricle. Differential includes ependymoma, choroid plexus papilloma versus other Dr. Hunter/neurosurgery. 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 Acetaminophen 650 mg every 6 hours when necessary pain 1 through 2/fever greater than 100 Hydromorphone 0.2-0.5 mg every 4 hours when necessary pain 3-10. Patient states he has taken this before. Noted allergies to hydrocodone and oxycodone. CT brain revealed 9 x 15 mm focal hemorrhagic component. CT head 06/22 stable exam with postsurgical changes CV: Hypertension Home medications include nebivolol 10 mg a night, (increase from 10 to 20 mg daily) amlodipine 10 mg daily , continue lisinopril 40 mg by mouth twice a day. These been continued with holding parameters for nebivolol for heart rate Continued spironolactone 25 mg by mouth twice a day Off Clevidipine drip. Clonidine when necessary. As needed Nitropaste/hydralazine to keep systolic blood pressure was 140 Resp: Nasal cannula to maintain saturations greater than equal to 92% Incentive spirometry while awake As needed albuterol/ipratropium aerosols every 4 hours when necessary dyspnea Chest x-ray 06/17 revealed no acute findings GI: Advance PO diet. Famotidine for GI prophylaxis Docusate sodium/Senokot 1 tablet twice a day for bowel regimen Needs cscope 2/2 cecal mass when improved : Cystitis History of prostate cancer status post prostatectomy Flores catheter not indicated currently Endo: Hyperglycemia Sliding-scale insulin to maintain euglycemia Levemir 5 units bid until steroids off. Renal: Creatinine currently within normal limits Monitor urine output Accurate I's and O's Currently normal saline at 30 cc an hour Heme: Leukocytosis Monitor CBC daily. Follow trends. Follow-up on [facility] ID: Uncomplicated cystitis Treat with 3 days aztreonam 1 g IV every 12 hours. Cultures pending Discontinued doxycycline FEN: Replace electrolytes as clinically indicated MSK: PT OT evaluate and treat Access Utilize peripheral IV. 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 Stable hemodynamics and respiratory status. Hyperglycemia from steroids improving. Continue ICU care due to EVD D/w Dr. Hunter. Plans to clamp EVD and possibly discontinue on 06/26. Will consult and transfer to hospitalist service for medical management starting 06/26. Critical care signing off, will be available for reconsult if needed. Problem Qualifiers (1) Allergic rhinitis: Qualified Codes: J30.9 - Allergic rhinitis, unspecified (2) Leukocytosis: Qualified Codes: D72.829 - Elevated white blood cell count, unspecified (3) Hypertension: Qualified Codes: I10 - Essential (primary) hypertension Yuriy Suarez MD Jun 26, 2017 22:25
[2017-06-26] MEDS: HYDROmorphone HCL PF 1 MG/ML VIAL IV PUSH PRN (22:26)
[2017-06-27] MEDS: INSULIN DETEMIR 100 UNITS/ML VIAL SQ SCH (00:17)
[2017-06-27] MEDS: DEXAMETHASONE SOD PHOS 4 MG/ML VIAL IV PUSH SCH ×2 (03:57→11:23)
[2017-06-27 04:00] VITALS: BP 141/80; PULSE 48; RESP 18; TEMP 98.3; O2SAT 98
[2017-06-27] MEDS: ACETAMINOPHEN 325 MG TAB PO PRN (04:00)
[2017-06-27] MEDS: CHLORHEXIDINE GLUCONATE 2 % 1 PACK (2 CLOTHS) TOP SCH (04:02)
[2017-06-27 08:00] VITALS: BP 159/87; PULSE 50; RESP 16; TEMP 98.6; O2SAT 96
[2017-06-27] MEDS ORDERED: INSULIN NovoLIN REGULAR SUPPLEMENTAL SCALE SQ SCH (08:00)
[2017-06-27 08:35] LABS: AUTOMATED NEUTROPHIL # 12.9 TH/MM3 (1.8-7.7); BASOPHIL % 0.3 % (0.0-2.0); EOSINOPHIL % 0.1 % (0.0-4.0); HEMATOCRIT 35.8 % (39.0-51.0); LYMPH % 10.8 % (9.0-44.0); LYMPHOCYTE # 1.7 TH/MM3 (1.0-4.8); MEAN CELL VOLUME 92.8 FL (80.0-100.0); MEAN CORPUSCULAR HEMOGLOBIN 30.3 PG (27.0-34.0); MEAN CORPUSCULAR HGB CONC 32.6 % (32.0-36.0); MONO % 9.1 % (0.0-8.0); NEUT % 79.7 % (16.0-70.0); PLATELET COUNT 256 TH/MM3 (150-450); RED BLOOD COUNT 3.85 MIL/MM3 (4.50-5.90); RED CELL DISTRIBUTION WIDTH 13.4 % (11.6-17.2); WHITE BLOOD COUNT 16.2 TH/MM3 (4.0-11.0)
[2017-06-27 08:37] LABS: HEMO FLAGS AUTO DIFF
[2017-06-27] MEDS: DOCUSATE SODIUM 100 MG CAP PO SCH (09:00)
[2017-06-27] MEDS: DOCUSATE SODIUM 50 MG/SENNA 8.6 MG TAB PO SCH (09:00)
[2017-06-27] MEDS: FAMOTIDINE 20 MG TAB PO SCH (09:00)
[2017-06-27] MEDS: FLUTICASONE PROPIONATE 50 MCG/ACT 16 GM NASAL SPRAY EACH NARE SCH (09:00)
[2017-06-27] MEDS: SODIUM CHLORIDE 0.9% FLUSH 5 ML FLUSH IVF SCH (09:00)
[2017-06-27 09:04] LABS: ANION GAP 7 MEQ/L (5-15); AST (GOT) 7 U/L (15-37); BICARBONATE 27.3 MEQ/L (21.0-32.0); BLOOD UREA NITROGEN 34 MG/DL (7-18); CHLORIDE 104 MEQ/L (98-107); GLOMERULAR FILTRATION RATE 81 ML/MIN (>89); POTASSIUM 4.1 MEQ/L (3.5-5.1); SODIUM (NA) 138 MEQ/L (136-145)
[2017-06-27 09:05] LABS: ALT (GPT) 35 U/L (12-78)
[2017-06-27] MEDS ORDERED: WALKER WHEELS/F1 MIS (09:05)
[2017-06-27 09:07] LABS: ALKALINE PHOSPHATASE 51 U/L (45-117); TOTAL BILIRUBIN ADULT 0.8 MG/DL (0.2-1.0)
[2017-06-27] MEDS: SPIRONOLACTONE 25 MG TAB PO SCH (09:09)
[2017-06-27] MEDS: LISINOPRIL 20 MG TAB PO SCH (09:10)
[2017-06-27 09:24] LABS: MYELOCYTES 2 % (0-0); NEUTROPHIL # MANUAL DIFF 14.1 TH/MM3 (1.8-7.7); POLYS (SEG NEUTROPHILS) 85 % (16-70); SCAN/DIFF FINAL DIFF MANUAL; WBC DIFF SAMPLE 100
[2017-06-27 09:55] VITALS: O2SAT 97
[2017-06-27] MEDS ORDERED: DEXA0.5T PO (09:59)
[2017-06-27] MEDS ORDERED: PROT40TA PO (09:59)
--- NOTE | 2017-06-27 11:06 | HHI.NSPN ---
(Claudia Camacho) Note Status Status: Progress Note (Claudia Camacho) Interval History Interval History This is a 67-year-old male with history of arterial hypertension and prostate Ca. He present to the [facility] ER with vertigo. He's been having vertigo for about 4 weeks but is getting progressively worse. The vertigo is aggravated by movement of the head by standing.. It has been worse last couple of days, it has been quite severe. He's having a headache behind both of his eyes. He says he is unable to stand without falling over. He has a history of prostate cancer and has had a radical prostatectomy. He says he has had recurrent urinary tract infections. He has had multiple surgeries including multiple orthopedic procedures as well as appendectomy and hernia. He was diagnosed with an ear infection and has been treated with doxycycline for 2 weeks. MRI of the brain revealed a 1.6 x 3.3 x 2.4 cm mass arising from the fourth ventricle with ventricular enlargement.He was placed dexamethasone 4 mg IV every 6 hours He has been hypertensive. He reports diffuse headaches [address] brain revealed small focal hemorrhagic component was left 9 x 15 mm. Neurosurgical consultation was requested 06/19: awaiting cerebral angiography today. no new neurological complaints. 06/21: s/p Stereotactic, image-guided suboccipital craniectomy, C1 laminectomy, microsurgical resection of fourth ventricle ependymoma. Microsurgical dissection by Dr. Hunter on 06/20. Patient awake and alert. Received morphine last night which reportedly made him very agitated and restless. This was changed to Dilaudid and he is less restless. Complains of headache. No nausea or vomiting. No numbness or paresthesias in the extremities. Ventriculostomy drain is in place at 3 cm of H2O. 06/22: Pt reportedly got confused last night and pulled out lines. He has intermittent pain responds to medication. Currently doing well. Follows commands and oriented. 06/23: mildly confused, nursing reports pt c/o visual disturbance in color. 06/24: reports patient intermittently confused, she is also concerned regarding his poor oral intake. ventriculostomy draining well. 06/25: confusion better, neuro stable overnight, with stable ICPs. 06/26: eager to go home, mild headaches, clinically stable overnight following EVD clamping. f/u CT Head this am completed. 06/27: feeling well, eager for dc today. (Claudia Camacho) Labs, Micro, & Vital Signs Results Date Time Temp Pulse Resp B/P (MAP) Pulse Ox O2 Delivery O2 Flow Rate FiO2 06/27/17 08:00 98.6 50 16 159/87 (111) 96 06/27/17 04:00 98.3 48 18 141/80 (100) 98 06/26/17 22:26 Room Air 06/26/17 21:27 97.7 52 18 145/70 (95) 97 06/26/17 19:00 99 Room Air 06/26/17 18:00 58 06/26/17 16:00 98.0 56 23 120/72 (88) 100 06/26/17 16:00 56 06/26/17 14:00 56 06/26/17 12:00 57 06/26/17 12:00 97.7 57 19 110/92 (98) 98 Constitutional Vital Signs Date Time Temp Pulse Resp B/P (MAP) Pulse Ox O2 Delivery O2 Flow Rate FiO2 06/27/17 08:00 98.6 50 16 159/87 (111) 96 06/27/17 04:00 98.3 48 18 141/80 (100) 98 06/26/17 22:26 Room Air 06/26/17 21:27 97.7 52 18 145/70 (95) 97 06/26/17 19:00 99 Room Air 06/26/17 18:00 58 06/26/17 16:00 98.0 56 23 120/72 (88) 100 06/26/17 16:00 56 06/26/17 14:00 56 06/26/17 12:00 57 06/26/17 12:00 97.7 57 19 110/92 (98) 98 (Claudia Camacho) Review of Systems Constitutional: DENIES: Fever, Chills Eyes: COMPLAINS OF: Blurred vision Cardiovascular: DENIES: Chest pain Neurologic: COMPLAINS OF: Abnormal gait, Poor Balance, DENIES: Headache, Localized weakness, Seizures, Tremor (Claudia Camacho) Physical Exam Alert oriented x 3. Follows commands. Speech fluent. CN: pupils 3-4 mm bilaterally. EOMs intact. No nystagmus noted. Motor: moves all four extremities symmetrically No swelling to extremities Wound clear dressing in place, Right EVD site with suture in place, no drainage seen Gait: mildly ataxic (Claudia Camacho) Medications Current Medications Current Medications Medications (Trade) Dose Ordered Sig/Geovany Route PRN Reason Start Time Stop Time Status Last Admin Dose Admin Famotidine (Pepcid) 20 mg Q12HR PO 06/17/17 21:00 06/26/17 22:06 Albuterol/ Ipratropium (Duoneb Neb) 1 ampule Q4HR NEB PRN INH WHEEZING 06/17/17 16:00 Miscellaneous Information 1 Q361D XX 06/17/17 16:00 Chlorhexidine Gluconate (Chlorhexidine 2% Cloth) Taper DAILY@04 TOP 06/18/17 04:00 06/14/18 03:59 Chlorhexidine Gluconate (Chlorhexidine 2% Cloth) 3 pack UNSCH PRN TOP HYGIENIC CARE 06/17/17 16:00 Senna/Docusate Sodium (Shakira-Colace) 1 tab BID PO 06/17/17 21:00 06/25/17 08:47 Magnesium Hydroxide (Milk Of Magnesia Liq) 30 ml Q12H PRN PO MILD - MODERATE CONSTIPATION 06/17/17 16:00 06/23/17 12:01 Sennosides (Senokot) 17.2 mg Q12H PRN PO MODERATE - SEVERE CONSTIPATION 06/17/17 16:00 Lactulose (Lactulose Liq) 30 ml DAILY PRN PO SEVERE CONSITIPATION 06/17/17 16:00 06/23/17 12:01 Fluticasone Propionate (Flonase Cortes Spr) 1 spray BID EACH NARE 06/17/17 21:00 06/26/17 09:32 Nebivolol (Bystolic) 10 mg HS PO 06/17/17 21:00 06/26/17 22:19 Spironolactone (Aldactone) 25 mg DAILY PO 06/18/17 09:00 06/27/17 09:09 Miscellaneous (Pill Splitter) 1 ea UNSCH PRN OTHER SEE LABEL COMMENTS 06/17/17 16:30 Hydralazine HCl (Apresoline Inj) 10 mg Q1HR PRN IV PUSH SBP greater than 140mm Hg 06/17/17 18:45 06/26/17 01:20 Nitroglycerin (Nitroglycerin 2% Oint) 2 inch Q6HR PRN TOPICAL SBP>140, DBP>90 06/17/17 18:30 Lisinopril (Prinivil) 40 mg BID PO 06/17/17 21:00 06/27/17 09:10 Dextrose (D50w (Vial) Inj) 50 ml UNSCH PRN IV HYPOGLYCEMIA-SEE COMMENTS 06/17/17 19:00 Glucagon (Glucagon Inj) 1 mg UNSCH PRN OTHER HYPOGLYCEMIA-SEE COMMENTS 06/17/17 19:00 Clevidipine 50 ml @ 2 mls/hr TITRATE PRN IV Blood Pressure Management 06/17/17 19:45 IV Flush (NS Flush) 2 ml UNSCH PRN IVF FLUSH AFTER USING IV ACCESS 06/20/17 15:45 IV Flush (NS Flush) 2 ml BID IVF 06/20/17 21:00 06/27/17 09:00 Enoxaparin Sodium (Lovenox Inj) 40 mg Q24H SQ 06/22/17 15:45 06/26/17 15:45 Bisacodyl (Dulcolax Supp) 10 mg DAILY PRN RECTAL SEVERE CONSITIPATION 06/20/17 15:45 Docusate Sodium (Colace) 100 mg BID PO 06/20/17 21:00 06/26/17 22:06 Ondansetron HCl (Zofran Inj) 4 mg Q6H PRN IV NAUSEA OR VOMITING 06/20/17 15:45 06/23/17 20:20 Calcium Gluconate (Calcium Gluconate Inj) 1 gm UNSCH PRN IV SEE LABEL COMMENTS 06/20/17 15:45 Potassium Chloride 100 ml @ 50 mls/hr UNSCH PRN IV POTASSIUM LESS THAN 4 06/20/17 15:45 Magnesium Sulfate 4 gm/Sodium Chloride 108 ml @ 108 mls/hr UNSCH PRN IV MAGNESIUM LESS THAN 2 06/20/17 15:45 Acetaminophen (Tylenol) 650 mg Q4H PRN PO TEMPERATURE > 101.5 F 06/20/17 15:45 06/26/17 18:46 Hydromorphone HCl (Dilaudid Pf Inj) 0.5 mg Q4H PRN IV PUSH pain 1-5 06/20/17 22:30 06/23/17 20:20 Hydromorphone HCl (Dilaudid Pf Inj) 1 mg Q2H PRN IV PUSH pain 6-10 06/21/17 11:30 06/26/17 22:26 Nicardipine HCl 50 mg/Sodium Chloride 520 ml @ 52 mls/hr TITRATE PRN IV Blood Pressure Management 06/21/17 12:30 06/22/17 18:36 Lorazepam (Ativan Inj) 1 mg Q6H PRN IV PUSH agitation 06/22/17 09:45 Insulin Detemir (Levemir Inj) 5 units Q12H SQ 06/22/17 12:30 06/27/17 00:17 Clonidine (Catapres) 0.2 mg Q6H PRN PO SBP greater than 160mm Hg 06/23/17 21:30 06/26/17 00:14 Amlodipine Besylate (Norvasc) 10 mg DAILY PO 06/24/17 09:00 06/27/17 09:09 Acetaminophen (Tylenol) 650 mg Q6H PRN PO PRN PAIN SCALE 1-6 06/24/17 04:30 06/27/17 04:00 Dexamethasone Sodium Phosphate (Decadron Inj) 1 mg Q6H IV PUSH 06/26/17 16:00 06/27/17 03:57 Insulin Human Regular (NovoLIN R SUPPLEMENTAL SCALE) 1 ACHS SLIDING SCALE SQ 06/27/17 08:00 (Claudia Camacho) Medical Decision Making MDM Remarks 67 y/o male with fourth ventricle mass with surrounding hemorrhage s/p suboccipital craniectomy, C1 laminectomy, microsurgical resection of fourth ventricle ependymoma, placement of right ventriculostomy drain on 06/20/16 final pathology still pending clinically improved (Claudia Camacho) Plan Plan Remarks neuro stable, clear to dc from NRS standpoint, cont Decadron weaning Protonix for ulcer prophylaxis dw pt and the do's and don'ts they request outpatient PT at [facility] follow up 1 week in office for suture removal all questions answered (Claudia Camacho) Attending Statement The patient tolerated the procedure well without complication. The exam, history , and the medical decision-making described in the above note were completed with the assistance of the mid-level provider. I reviewed and agree with the findings presented. I attest that I had a [id number] encounter with the patient on the same day, and personally performed and documented my assessment and findings in the medical record. (Steven Hunter MD) Claudia Camacho Jun 27, 2017 11:06 Steven Hunter MD Jun 29, 2017 20:51
[2017-06-27] MEDS ORDERED: DILA2TAB2 PO (11:58)
--- NOTE | 2017-06-27 12:06 | HHI.DS ---
Discharge Summary Admission Date Jun 17, 2017 at 15:56 Discharge Date: Jun 27, 2017 Admitting Diagnosis INTRAVENTRICULAR MASS (1) Brain tumor ICD Code: D49.6 - Neoplasm of unspecified behavior of brain Diagnosis: Principal Status: Acute (2) Allergic rhinitis ICD Code: J30.9 - Allergic rhinitis, unspecified Diagnosis: Secondary (3) Cystitis ICD Code: N30.90 - Cystitis, unspecified without hematuria Diagnosis: Secondary (4) Hyperglycemia ICD Code: R73.9 - Hyperglycemia, unspecified Diagnosis: Secondary (5) Leukocytosis ICD Code: D72.829 - Elevated white blood cell count, unspecified Diagnosis: Secondary (6) Hypertension ICD Code: I10 - Essential (primary) hypertension Diagnosis: Secondary (7) Severe enlargement of fourth ventricle ICD Code: G93.89 - Other specified disorders of brain Diagnosis: Principal Procedures s/p Stereotactic, image-guided suboccipital craniectomy, C1 laminectomy, microsurgical resection of fourth ventricle ependymoma 06/20 and Right frontal [place] hole with placement of a ventriculostomy catheter Brief History - From Admission 67-year-old male . Date of admission 06/17/2017. Past medical history includes hypertension. His presenting complaint the hospital was vertigo. He' s been having vertigo for about 4 weeks but is getting progressively worse. The vertigo is aggravated by movement of the head by standing.. Symptomatology occurring worse last couple of days has been quite severe. He's having a headache behind both of his eyes. He says he is unable to stand without falling over. He has a history of prostate cancer and has had a radical prostatectomy. He says he has had urinary tract infections since then. He has had multiple surgeries including multiple orthopedic procedures as well as appendectomy and hernia. He was diagnosed with an ear infection and has been on doxycycline for 2 weeks. 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 Dr. Hunter was contacted. Recommended dexamethasone 4 mg IV every 6 hours with surgical evaluation in AM. Patient remained quite hypertensive. Was started on a [place] proximal drip. Patient pointed diffuse headache [address] brain revealed small focal hemorrhagic component was left 9 x 15 mm. CBC/BMP: 06/27/17 0815 06/27/17 0815 Significant Findings Laboratory Tests Test 06/24/17 17:00 06/25/17 03:30 06/25/17 08:30 06/25/17 13:55 Serum Osmolality 312 MOSM/KG (275-295) 318 MOSM/KG (275-295) 310 MOSM/KG (275-295) 314 MOSM/KG (275-295) Test 06/25/17 20:40 06/26/17 04:20 06/27/17 08:15 Serum Osmolality 310 MOSM/KG (275-295) 306 MOSM/KG (275-295) White Blood Count 16.2 TH/MM3 (4.0-11.0) Red Blood Count 3.85 MIL/MM3 (4.50-5.90) Hemoglobin 11.7 GM/DL (13.0-17.0) Hematocrit 35.8 % (39.0-51.0) Neutrophils (%) (Auto) 79.7 % (16.0-70.0) Monocytes (%) (Auto) 9.1 % (0.0-8.0) Neutrophils # (Auto) 12.9 TH/MM3 (1.8-7.7) Monocytes # (Auto) 1.5 TH/MM3 (0-0.9) Neutrophils % (Manual) 85 % (16-70) Lymphocytes % 8 % (9-44) Neutrophils # (Manual) 14.1 TH/MM3 (1.8-7.7) Myelocytes 2 % (0-0) Blood Urea Nitrogen 34 MG/DL (7-18) Random Glucose 170 MG/DL (74-106) Albumin 3.1 GM/DL (3.4-5.0) Aspartate Amino Transf (AST/SGOT) 7 U/L (15-37) Estimat Glomerular Filtration Rate 81 ML/MIN (>89) Imaging Last Impressions Head CT 06/26/17 0600 Signed Impressions: Service Date/Time: June 04:07 - CONCLUSION: 1. Reduction in size of the pneumocephaly as well as the intraventricular hemorrhage. 2. Stable postsurgical changes involving the posterior cranial fossa. 3. Ventriculostomy with stable ventricular size. Kendrick Faye Jr., MD Chest X-Ray 06/20/17 1537 Signed Impressions: Service Date/Time: Tuesday, June 20, 2017 15:56 - CONCLUSION: 1. Left basilar effusion and atelectasis new when compared to previous Jak Linares MD Cerebral Arteriogram 06/19/17 0000 Signed Impressions: Service Date/Time: June 10:38 - CONCLUSION: The exam demonstrates questionable, faint visualization of the lesion on the capillary phase imaging with injection of the right vertebral. This appears to feed via the right PICA. For the most part, this lesion appears hypovascular. Jak Linares MD Brain MRI 06/19/17 0000 Signed Impressions: Service Date/Time: June 17:37 - CONCLUSION: Stealth protocol for purposes of localizing the known fourth ventricle mass. The lesion measures approximately 19 x 22 x 33 mm and has heterogeneous enhancement. Joe Smith MD Chest CT 06/18/17 0000 Signed Impressions: Service Date/Time: Sunday, June 18, 2017 16:54 - CONCLUSION: Negative for primary or metastatic disease. Lg Linares MD FACR Abdomen/Pelvis CT 06/18/17 0000 Signed Impressions: Service Date/Time: Sunday, June 18, 2017 16:54 - CONCLUSION: 1. Possible mass of the cecum. If not done recently, attempted direct visualization with colonoscopy recommended. 2. Previous prostatectomy. 3. No evidence of bony metastatic disease. 4. Patchy cortical thinning/scarring of both kidneys. No obstructive uropathy. Joe Smith MD PE at Discharge GENERAL: 67-year-old male, currently resting in bed SKIN: Warm and dry. HEAD: Atraumatic. Normocephalic. EYES: Pupils equal and round, 2 mm, reactive. No scleral icterus. No injection or drainage. ENT: No nasal bleeding or discharge. Mucous membranes pink and moist. NECK: Trachea midline. Airway widely patent. CARDIOVASCULAR: RRR. S1, S2 no S4. RESPIRATORY: No accessory muscle use. Clear to auscultation. Breath sounds equal bilaterally. No adventitious sounds. GASTROINTESTINAL: Abdomen soft, non-tender, nondistended. BS active. MUSCULOSKELETAL: Extremities well perfused, warm. NEUROLOGICAL: Alert, cooperative. Motor grossly within normal limits. Five out of 5 muscle strength in the arms and legs. Conversant. Hospital Course Neuro/Psych: Fourth ventricle mass Headaches NOS Stable. MRI brain 06/17 revealed a 1.6 3.3 x 2.4 cm mass in the 4 the ventricle. Dx ependymoma per neurosurgery Dr. Hunter/neurosurgery. s/p Stereotactic, image-guided suboccipital craniectomy , C1 laminectomy, microsurgical resection of fourth ventricle ependymoma 06/20 Taper Dexamethasone Acetaminophen 650 mg every 6 hours when necessary pain 1 through 2/fever greater than 100 Hydromorphone 0.2-0.5 mg every 4 hours when necessary pain 3-10. Patient counseled CT brain revealed 9 x 15 mm focal hemorrhagic component. CT head 06/22 stable exam with postsurgical changes CV: Hypertension Home medications include nebivolol 10 mg a night, amlodipine and lisinopril 40 mg by mouth twice a day. Continued spironolactone 25 mg by mouth twice a day Off Clevidipine drip. Clonidine when necessary. As needed Nitropaste/hydralazine to keep systolic blood pressure was 140 Resp: Nasal cannula to maintain saturations greater than equal to 92% Incentive spirometry while awake As needed albuterol/ipratropium aerosols every 4 hours when necessary dyspnea Chest x-ray 06/17 revealed no acute findings GI: Advance PO diet. 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 Saez in [facility] : Cystitis History of prostate cancer status post prostatectomy Flores catheter not indicated currently Endo: Hyperglycemia Sliding-scale insulin to maintain euglycemia Levemir 5 units bid until steroids off. Patient refusing Levemir Renal: Creatinine currently within normal limits Monitor urine output Accurate I's and O's Heme: Leukocytosis Monitor CBC daily. Follow trends. Follow-up on coags ID: Uncomplicated cystitis Treat with 3 days aztreonam 1 g IV every 12 hours. Cultures pending Discontinued doxycycline FEN: Replace electrolytes as clinically indicated MSK: PT OT evaluate and treat Access Utilize peripheral IV. Central line if indicated Prophylaxis GI - famotidine DVT - SCD/Lovenox Pt Condition on Discharge: Stable Discharge Disposition: Discharge Home Discharge Time: > 30 minutes Discharge Instructions DIET: Follow Instructions for: Diabetic Diet Activities you can perform: Regular-No Restrictions Activities to Avoid: Driving Follow up Referrals: Neurosurgery - 1 Week with Claudia Camacho PCP Follow-up - 1 Week Physical Therapy - 1 Week New Medications: Dexamethasone (Dexamethasone) 0.5 Mg Tab 0.5 MG PO Q6HR for 5 Days, TAB 0 Refills Take 1 tablet q 6 hours x 2 days, then q 12 hours x 2 days then dc Hydromorphone (Dilaudid) 2 Mg Tab 2 MG PO Q6H PRN for Pain Management, #12 TAB 0 Refills Pantoprazole (Protonix) 40 Mg Tab 40 MG PO DAILY for Ulcer Prevention, #30 TAB 0 Refills Walker with Front Wheels (Walker with Front Wheels) 1 Mis Mis EA .ROUTE DIRECTED, #1 0 Refills Continued Medications: Amlodipine (Amlodipine) 2.5 Mg Tab 2.5 MG PO BID for Blood Pressure Management, #30 TAB 0 Refills Fluticasone Nasal [place] (Fluticasone Nasal [place]) 50 Mcg/Act Naspr 50 MCG EACH NARE BID for Allergy Management, #1 BOTTLE 0 Refills 50 mcg/spray Lisinopril (Lisinopril) 40 Mg Tab 40 MG PO BID for Blood Pressure Management, #30 TAB 0 Refills Nebivolol (Bystolic) 10 Mg Tab 10 MG PO HS for Blood Pressure Management, #30 TAB 0 Refills Spironolactone (Spironolactone) 25 Mg Tab 25 MG PO DAILY, #30 TAB 0 Refills Discontinued Medications: Doxycycline Hyclate (Doxycycline Hyclate) 100 Mg Cap 100 MG PO BID for Infection, CAP 0 Refills Additional Information I spent 35 minutes [id number] with the patient or on the amaya discussing the patient's disposition, prognosis, and plan of care with patient's caregivers. Over half the time spent was devoted to counseling the patient regarding placement in coordinating care with caregivers and case management. Yuriy Suarez MD Jun 27, 2017 12:06
== END 2017-06-27 12:55 | disposition home or self-care (01) | DRG 26 ==
LOC: PHED 10:30 → PHEDA 15:56 → N03A 21:09 → N05B 06-26 20:15
PROVIDERS: ADMIT Internal Medicine Critical Care Medicine; ATTEND Internal Medicine
PROC: 009630Z Drainage of Cerebral Ventricle with Drainage Device, Percutaneous Approach (ICD-10-PCS; 2017-06-20)
PROC: 2W30XYZ Immobilization of Head using Other Device (ICD-10-PCS; 2017-06-20)
PROC: 00B60ZX Excision of Cerebral Ventricle, Open Approach, Diagnostic (ICD-10-PCS; principal; 2017-06-20 08:33)
DX: C71.7 Malignant neoplasm of brain stem (principal); G91.1 Obstructive hydrocephalus; I10 Essential (primary) hypertension; D72.829 Elevated white blood cell count, unspecified; R51 Headache; N30.90 Cystitis, unspecified without hematuria; R73.9 Hyperglycemia, unspecified; J30.9 Allergic rhinitis, unspecified; R42 Dizziness and giddiness; T38.0X5A Adverse effect of glucocorticoids and synthetic analogues, initial encounter; Z85.46 Personal history of malignant neoplasm of prostate; Z88.1 Allergy status to other antibiotic agents; Z88.5 Allergy status to narcotic agent; Z88.0 Allergy status to penicillin; Z88.2 Allergy status to sulfonamides; Z88.8 Allergy status to other drugs, medicaments and biological substances
CPT/HCPCS: 36223; 36226; 70450; 70460; 70552; 70553; 71010; 71260; 74177; 76937; 80048; 80053; 81001; 82805; 82945; 82948; 83930; 84157; 84295; 84484; 85007; 85025; 85027; 85610; 85730; 86077; 86850; 86870; 86900; 86901; 86920; 86921; 86922; 87070; 87086; 87205; 87641; 88307; 88333; 89051; 93005; 94150; 96361; 96374; 99152; 99153; A9579; C1713; C1760; C1768; C1769; C1887; C1894; C9113; J0360; J0690; J1100; J1170; J1580; J1650; J1940; J1953; J2060; J2150; J2250; J2270; J2370; J2405; J3010; J3370; J3480; J7030; J7040; J7050; J7120; Q9963; Q9967

== ENCOUNTER → 2017-07-16 | Outpatient (CLI) | payer OTHER ==
[~2017-07-16] MED LIST changes: +AMLO2.5T PO; +BYST10TA2 PO; +DEXA0.5T PO; +DILA2TAB2 PO; +FLUT50SP EACH NARE; -LISI-363 PO; +LISI40TA PO; -PRED-1 PO; -PROB1TAB; +PROT40TA PO; +SPIR25TA PO; -ULTR50TA PO; +WALKER WHEELS/F1 MIS
[2017-07-16 13:36] LABS: AUTOMATED NEUTROPHIL # 4.1 TH/MM3 (1.8-7.7); BASOPHIL % 0.5 % (0.0-2.0); EOSINOPHIL # 0.4 TH/MM3 (0-0.4); EOSINOPHIL % 5.8 % (0.0-4.0); HEMATOCRIT 30.2 % (39.0-51.0); LYMPH % 23.9 % (9.0-44.0); LYMPHOCYTE # 1.6 TH/MM3 (1.0-4.8); MEAN CELL VOLUME 93.2 FL (80.0-100.0); MEAN CORPUSCULAR HEMOGLOBIN 30.5 PG (27.0-34.0); MEAN CORPUSCULAR HGB CONC 32.7 % (32.0-36.0); MONO % 9.5 % (0.0-8.0); NEUT % 60.3 % (16.0-70.0); PLATELET COUNT 287 TH/MM3 (150-450); RED BLOOD COUNT 3.24 MIL/MM3 (4.50-5.90); RED CELL DISTRIBUTION WIDTH 14.3 % (11.6-17.2); WHITE BLOOD COUNT 6.8 TH/MM3 (4.0-11.0)
[2017-07-16 13:43] LABS: BLOOD, URINE NEG (NEG); GLUCOSE,URINE NEG (NEG); HYALINE CAST, URINE 1 /lpf (RARE); KETONE, URINE NEG (NEG); MUCUS URINE MANY /lpf (OCC); NITRITE,URINE NEG (NEG); PH, URINE 5.5 (5.0-8.5); URINE COLOR YELLOW (YELLW/STRAW)
[2017-07-16 13:44] LABS: COMMENT (UR) CULT NOT INDICATED; CULTURE IF INDICATED CULT NOT INDICATED
[2017-07-16 13:48] LABS: HEMO FLAGS AUTO DIFF
[2017-07-16 14:00] LABS: ALT (GPT) 31 U/L (12-78); ANION GAP 9 MEQ/L (5-15); AST (GOT) 16 U/L (15-37); BICARBONATE 25.9 MEQ/L (21.0-32.0); BLOOD UREA NITROGEN 10 MG/DL (7-18); CHLORIDE 106 MEQ/L (98-107); GLOMERULAR FILTRATION RATE 81 ML/MIN (>89); GLUCOSE,FASTING 113 MG/DL (74-99); POTASSIUM 3.5 MEQ/L (3.5-5.1); SODIUM (NA) 141 MEQ/L (136-145)
[2017-07-16 14:03] LABS: ALKALINE PHOSPHATASE 91 U/L (45-117); TOTAL BILIRUBIN ADULT 0.5 MG/DL (0.2-1.0)
[2017-07-16 14:37] LABS: BANDS 3 % (0-6); EOSINOPHILS 5 % (0-4); METAMYELOCYTES 1 % (0-1); MYELOCYTES 6 % (0-0); NEUTROPHIL # MANUAL DIFF 4.6 TH/MM3 (1.8-7.7); POLYS (SEG NEUTROPHILS) 57 % (16-70); WBC DIFF SAMPLE 100
[2017-07-16 14:38] LABS: PLATELET ESTIMATE SMEAR NORMAL (NORMAL); PLATELET MORPHOLOGY NORMAL (NORMAL); SCAN/DIFF FINAL DIFF MANUAL
== END ==
LOC: CLAB 13:10
PROVIDERS: ATTEND Internal Medicine
DX: R53.83 Other fatigue (principal); R79.89 Other specified abnormal findings of blood chemistry; R05 Cough
CPT/HCPCS: 36415; 80053; 81001; 85007; 85027

== ENCOUNTER → 2017-07-23 | Outpatient (CLI) | payer MEDICARE, OTHER ==
[2017-07-23 13:31] LABS: AUTOMATED NEUTROPHIL # 4.4 TH/MM3 (1.8-7.7); BASOPHIL % 0.6 % (0.0-2.0); EOSINOPHIL # 0.2 TH/MM3 (0-0.4); EOSINOPHIL % 2.3 % (0.0-4.0); LYMPH % 34.6 % (9.0-44.0); LYMPHOCYTE # 2.7 TH/MM3 (1.0-4.8); MEAN CELL VOLUME 90.5 FL (80.0-100.0); MEAN CORPUSCULAR HEMOGLOBIN 29.7 PG (27.0-34.0); MEAN CORPUSCULAR HGB CONC 32.8 % (32.0-36.0); MONO % 6.7 % (0.0-8.0); NEUT % 55.8 % (16.0-70.0); PLATELET COUNT 450 TH/MM3 (150-450); RED BLOOD COUNT 3.75 MIL/MM3 (4.50-5.90); RED CELL DISTRIBUTION WIDTH 14.3 % (11.6-17.2); RETIC % 5.1 % (0.4-3.0); WHITE BLOOD COUNT 7.8 TH/MM3 (4.0-11.0)
[2017-07-23 13:36] LABS: HEMO FLAGS AUTO DIFF; REVIEW FLAG FINAL
[2017-07-23 13:48] LABS: ANION GAP 10 MEQ/L (5-15); AST (GOT) 26 U/L (15-37); BICARBONATE 24.3 MEQ/L (21.0-32.0); BLOOD UREA NITROGEN 12 MG/DL (7-18); CHLORIDE 107 MEQ/L (98-107); GLOMERULAR FILTRATION RATE 62 ML/MIN (>89); POTASSIUM 3.6 MEQ/L (3.5-5.1); SODIUM (NA) 141 MEQ/L (136-145)
[2017-07-23 13:54] LABS: ALKALINE PHOSPHATASE 97 U/L (45-117); ALT (GPT) 29 U/L (12-78); FERRITIN 195 NG/ML (26-388); TOTAL BILIRUBIN ADULT 0.4 MG/DL (0.2-1.0); TRANSFERRIN IRON PROFILE 231 MG/DL (200-360)
[2017-07-23 14:17] LABS: BANDS 5 % (0-6); METAMYELOCYTES 2 % (0-1); MYELOCYTES 1 % (0-0); NEUTROPHIL # MANUAL DIFF 5.1 TH/MM3 (1.8-7.7); POLYS (SEG NEUTROPHILS) 58 % (16-70); WBC DIFF SAMPLE 100
[2017-07-23 14:18] LABS: PLATELET ESTIMATE SMEAR HIGH (NORMAL); PLATELET MORPHOLOGY NORMAL (NORMAL)
[2017-07-23 14:19] LABS: SCAN/DIFF FINAL DIFF MANUAL
== END ==
LOC: PLAB 11:28
PROVIDERS: ATTEND Internal Medicine
DX: D64.9 Anemia, unspecified (principal)
CPT/HCPCS: 36415; 80053; 82728; 83540; 83550; 85007; 85027; 85044; 85060

== ENCOUNTER 2017-08-03 17:10 | Inpatient (IN) | payer MEDICARE, OTHER ==
[~2017-08-03] VITALS: Ht 175.3 cm; Wt 88.8 kg
[2017-08-03] MEDS ORDERED: GADODIAMIDE PF 287 MG/ML 20 ML VIAL (for RAD MRI) IVCONTRAST ONE (17:11)
[2017-08-03 17:14] VITALS: BP 175/91; PULSE 73; RESP 18; TEMP 99.5; O2SAT 96
[2017-08-03] MEDS ORDERED: HYDROmorphone HCL PF 0.5 MG/0.5 ML SYRINGE IV PUSH ONE (17:45)
[2017-08-03] MEDS ORDERED: VANCOMYCIN INJ 1,000 MG in SODIUM CHLOR 0.9% 250 ML INJ 250 ML IV ONE ×2 (17:45→20:45)
--- NOTE | 2017-08-03 17:53 | PD ---
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 Hunter, here for evaluation of posterior neck pain at the surgical site, fever, and pain behind his eyes. Symptoms started 2 days ago and have progressively worsened. Pain is 10 out of 10, constant, worse with movement and palpation. Pain in his posterior neck is described as pressure, and pain behind his eyes is described as sharp. No visual changes. No paresthesias or motor deficits. He has had a fever at home with temperatures ranging between 99 and 102F. PFSH Past Medical History Arthritis: No Heart Rhythm Problems: No Cancer: Yes Cardiovascular Problems: Yes High Cholesterol: No Chemotherapy: No Chest Pain: No Endocrine: No Genitourinary: Yes Hypertension: Yes Immune Disorder: No Kidney Stones: Yes Musculoskeletal: No Neurologic: No Psychiatric: No Reproductive: No Respiratory: Yes Radiation Therapy: No Sleep Apnea: Yes Tetanus Vaccination: < 5 Years ?: Not Past Surgical History Abdominal Surgery: Yes (hernia repair appi ) Cardiac Surgery: No Ear Surgery: No Endocrine Surgery: No Eye Surgery: No Genitourinary Surgery: Yes (turp) Gynecologic Surgery: No Neurologic Surgery: Yes (benign brain tumor removal) Oral Surgery: Yes (ent ) Thoracic Surgery: No Other Surgery: Yes (prostectomy) Social History Alcohol Use: No Tobacco Use: No Substance Use: No Allergies-Medications (Allergen,Severity, Reaction): Coded Allergies: Sulfa (Sulfonamide Antibiotics) (Unverified Allergy, Unknown, Rash, ) amoxicillin (Unverified Allergy, Unknown, Anaphylaxis, 08/03/17) aspirin (Unverified Allergy, Unknown, Rash, 08/03/17) ciprofloxacin (Unverified Allergy, Unknown, Anaphylaxis, 08/03/17) hydrocodone (Unverified Allergy, Unknown, Rash, 08/03/17) ibuprofen (Unverified Allergy, Unknown, Rash, 08/03/17) naproxen (Unverified Allergy, Unknown, Rash, 08/03/17) oxycodone (Unverified Allergy, Unknown, Rash, 08/03/17) penicillin G (Unverified Allergy, Unknown, Anaphylaxis, 08/03/17) sulfamethoxazole (Unverified Allergy, Unknown, Rash, 08/03/17) trimethoprim (Unverified Allergy, Unknown, Rash, 08/03/17) Reported Meds & Prescriptions Reported Meds & Active Scripts Active Dilaudid (Hydromorphone HCl) 2 Mg Tab 2 Mg PO Q6H PRN Protonix (Pantoprazole Sodium) 40 Mg Tab 40 Mg PO DAILY Walker with Front Wheels (Device) 1 Mis Mis Ea .ROUTE DIRECTED Reported Fluticasone Nasal [place] 50 Mcg/Act Naspr 50 Mcg EACH NARE BID 50 mcg/spray Amlodipine (Amlodipine Besylate) 2.5 Mg Tab 2.5 Mg PO BID Spironolactone 25 Mg Tab 25 Mg PO DAILY Lisinopril 40 Mg Tab 40 Mg PO BID Bystolic (Nebivolol) 10 Mg Tab 10 Mg PO HS Review of Systems Except as stated in HPI: all other systems reviewed are Neg Physical Exam Narrative GENERAL: Well-developed, well-nourished, awake, alert, no apparent distress. SKIN: Focused skin assessment warm/dry. Posterior neck/occipital scalp with midline vertical surgical scar that is well-healed with surrounding warmth and erythema with underlying fluctuance and induration. This area was evaluated using a bedside ultrasound linear probe in shows a circular fluid collection approximately 1.5 cm x 1.5 cm. HEAD: Atraumatic. Normocephalic. EYES: Pupils equal and round. No scleral icterus. No injection or drainage. ENT: No nasal bleeding or discharge. Mucous membranes pink and moist. NECK: Trachea midline. No JVD. Skin exam as above. No nuchal rigidity. CARDIOVASCULAR: Regular rate and rhythm. RESPIRATORY: No accessory muscle use. Clear to auscultation. Breath sounds equal bilaterally. GASTROINTESTINAL: Abdomen soft, non-tender, nondistended. MUSCULOSKELETAL: No obvious deformities. No clubbing. No cyanosis. No edema. NEUROLOGICAL: Awake and alert. No obvious cranial nerve deficits. Motor grossly within normal limits. Normal speech. PSYCHIATRIC: Appropriate mood and affect; insight and judgment normal. Data Data Last Documented VS Vital Signs Date Time Temp Pulse Resp B/P (MAP) Pulse Ox O2 Delivery O2 Flow Rate FiO2 08/03/17 20:06 98.5 75 18 125/73 (90) 95 Room Air Orders Orders Complete Blood Count With Diff (08/03/17 17:39) Comprehensive Metabolic Panel (08/03/17 17:39) Prothrombin Time / Inr (Pt) (08/03/17 17:39) Act Partial Throm Time (Ptt) (08/03/17 17:39) Lactic Acid Sepsis Protocol (08/03/17 17:39) Blood Culture (08/03/17 17:39) Ecg Monitoring (08/03/17 17:39) Iv Access Insert/Monitor (08/03/17 17:39) Oximetry (08/03/17 17:39) Vancomycin Inj (Vancomycin Inj) (08/03/17 17:45) Hydromorphone Pf Inj (Dilaudid Pf Inj) (08/03/17 17:45) Mri Brain W&W/O Contrast (08/03/17 ) Mri C Spine W&W/O Contrast (08/03/17 ) Acetaminophen (Tylenol) (08/03/17 18:30) Gadodiamide Pf Inj (Omniscan Pf Inj) (08/03/17 17:11) Vancomycin Inj (Vancomycin Inj) (08/03/17 20:45) Labs Laboratory Tests Test 08/03/17 17:50 White Blood Count 12.2 TH/MM3 Red Blood Count 3.76 MIL/MM3 Hemoglobin 11.0 GM/DL Hematocrit 33.3 % Mean Corpuscular Volume 88.4 FL Mean Corpuscular Hemoglobin 29.2 PG Mean Corpuscular Hemoglobin Concent 33.0 % Red Cell Distribution Width 14.7 % Platelet Count 252 TH/MM3 Mean Platelet Volume 8.2 FL Neutrophils (%) (Auto) 59.9 % Lymphocytes (%) (Auto) 28.6 % Monocytes (%) (Auto) 9.0 % Eosinophils (%) (Auto) 0.7 % Basophils (%) (Auto) 1.8 % Neutrophils # (Auto) 7.3 TH/MM3 Lymphocytes # (Auto) 3.5 TH/MM3 Monocytes # (Auto) 1.1 TH/MM3 Eosinophils # (Auto) 0.1 TH/MM3 Basophils # (Auto) 0.2 TH/MM3 CBC Comment DIFF FINAL Differential Comment Prothrombin Time 10.5 SEC Prothromb Time International Ratio 1.0 RATIO Activated Partial Thromboplast Time 22.7 SEC Blood Urea Nitrogen 12 MG/DL Creatinine 0.91 MG/DL Random Glucose 100 MG/DL Total Protein 8.1 GM/DL Albumin 3.4 GM/DL Calcium Level 9.0 MG/DL Alkaline Phosphatase 80 U/L Aspartate Amino Transf (AST/SGOT) 18 U/L Alanine Aminotransferase (ALT/SGPT) 28 U/L Total Bilirubin 0.9 MG/DL Sodium Level 135 MEQ/L Potassium Level 3.8 MEQ/L Chloride Level 102 MEQ/L Carbon Dioxide Level 22.4 MEQ/L Anion Gap 11 MEQ/L Estimat Glomerular Filtration Rate 84 ML/MIN Lactic Acid Level 0.9 mmol/L MDM Medical Decision Making Medical Screen Exam Complete: Yes Emergency Medical Condition: Yes Medical Record Reviewed: Yes Differential Diagnosis Postoperative infection/cellulitis/abscess, intracranial abnormality, sepsis Narrative Course Shortly after I evaluated the patient and I discussed the case with on-call neurosurgeon Dr. Sandoval. Plan is to obtain MRI of the brain and cervical spine with and without contrast. Antibiotics will be held pending imaging studies and likely wound cultures. Vital signs show heart rate 72, blood pressure 144/75, pulse ox 96% on room air , oral temp of 11.7F. CBC: WBC 12.2, hemoglobin 11, hematocrit 33.3, platelets 252. CMP is unremarkable. Lactic acid is 0.9. MRI brain: CONCLUSION: There is a small sinus tract through the skin which connects to a subcutaneous fluid collection. The subcutaneous fluid collection appears to connect to the surgical cavity in the posterior fossa. This suggests potential connection from the skin into the posterior fossa. MRI cervical spine: CONCLUSION: 1. Postsurgical changes from occipital suboccipital craniotomy. 2. Subcutaneous fluid collection adjacent to the posterior fossa has enhancement in the wall and there is also evidence of a sinus tract through the skin in the midline low occipital region. Possible connection between the subcutaneous and intrathecal fluid collections. The wall enhancement in the subcutaneous component suggests this may be a developing abscess. Case discussed again with on-call neurosurgeon Dr. Sandoval. Plan at this time is to start the patient on IV antibiotics and have him admitted to the ICU at the [facility]. He will see the patient in consultation. The patient was made aware of all findings and plan for admission. Case discussed with planning division superintendent Dr. Aponte who will admit the patient to his service at the main hospital. Diagnosis Primary Impression: Postoperative infection Qualified Codes: T81.4XXA - Infection following a procedure, initial encounter Admitting Information Admitting Physician Requests: Admit Romel Borrero MD Aug 03, 2017 17:53
[2017-08-03 18:14] LABS: AUTOMATED NEUTROPHIL # 7.3 TH/MM3 (1.8-7.7); BASOPHIL # 0.2 TH/MM3 (0-0.2); BASOPHIL % 1.8 % (0.0-2.0); EOSINOPHIL # 0.1 TH/MM3 (0-0.4); EOSINOPHIL % 0.7 % (0.0-4.0); HEMATOCRIT 33.3 % (39.0-51.0); LYMPH % 28.6 % (9.0-44.0); LYMPHOCYTE # 3.5 TH/MM3 (1.0-4.8); MEAN CELL VOLUME 88.4 FL (80.0-100.0); MEAN CORPUSCULAR HEMOGLOBIN 29.2 PG (27.0-34.0); MEAN PLATELET VOLUME 8.2 FL (7.0-11.0); MONOCYTE # 1.1 TH/MM3 (0-0.9); NEUT % 59.9 % (16.0-70.0); PLATELET COUNT 252 TH/MM3 (150-450); RED BLOOD COUNT 3.76 MIL/MM3 (4.50-5.90); RED CELL DISTRIBUTION WIDTH 14.7 % (11.6-17.2); WHITE BLOOD COUNT 12.2 TH/MM3 (4.0-11.0)
[2017-08-03 18:22] LABS: CHLORIDE 102 MEQ/L (98-107); SODIUM (NA) 135 MEQ/L (136-145)
[2017-08-03 18:26] LABS: ALBUMIN 3.4 GM/DL (3.4-5.0); BICARBONATE 22.4 MEQ/L (21.0-32.0); BLOOD UREA NITROGEN 12 MG/DL (7-18); GLUCOSE,RANDOM 100 MG/DL (74-106)
[2017-08-03 18:28] VITALS: BP 144/75; PULSE 72; RESP 18; TEMP 101.7; O2SAT 96
[2017-08-03 18:28] LABS: PROTHROMBIN TIME - PATIENT 10.5 SEC (9.8-11.6)
[2017-08-03 18:29] LABS: ALT (GPT) 28 U/L (12-78); AST (GOT) 18 U/L (15-37); CREATININE 0.91 MG/DL (0.60-1.30); GLOMERULAR FILTRATION RATE 84 ML/MIN (>89)
[2017-08-03] MEDS ORDERED: ACETAMINOPHEN 325 MG TAB PO ONE (18:30)
[2017-08-03 18:31] LABS: TOTAL BILIRUBIN ADULT 0.9 MG/DL (0.2-1.0); TOTAL PROTEIN 8.1 GM/DL (6.4-8.2)
[2017-08-03 18:32] LABS: ALKALINE PHOSPHATASE 80 U/L (45-117)
[2017-08-03 20:06] VITALS: BP 125/73; PULSE 75; RESP 18; TEMP 98.5; O2SAT 95
--- NOTE | 2017-08-03 20:15 | RADRPT ---
EXAM DATE/TIME: 08/03/2017 19:13 [facility] COMPARISON: CT BRAIN W/O CONTRAST, June 26, 2017, 4:07. MRI BRAIN W & W/O CONTRAST, June 17, 2017, 13 :16. INDICATIONS : Cephalgia. Drainage at surgical site CONTRAST: 16 cc Omniscan (gadodiamide) IV MEDICAL HISTORY : Carcinoma, prostate. Hypertension. SURGICAL HISTORY : Craniotomy. Prostatectomy. ENCOUNTER: Initial ACUITY: 1 day PAIN SCORE: 5/10 LOCATION: cranial TECHNIQUE: Multiplanar, multisequence MRI of the brain was performed both prior to and following the administrat ion of paramagnetic contrast. FINDINGS: Occipital craniotomy for removal of 4th ventricular tumor. There is a large surgical cavity which ex tends from the foramen magnum to the subcutaneous tissues. Superficial to the platysmas muscle is a 2nd fluid collection which measures 11 mm in diameter and there is a sinus tract traversing the skin located in the midline. There is some enhancement along the surgical cavity and in the wall of the s ubcutaneous fluid collection. On the T2 star gradient echo images and T2 axial images, there appears to be a connection between the surgical cavity in the subcutaneous fluid collection. Therefore, wit h the sinus tract, there is connection from the skin to the posterior fossa CSF. Normal configurations the brainstem and cerebellar hemispheres. There and the right lateral occipita l lobe, there is a signal abnormality adjacent to the cortex characterize by T2 prolongation and no c ontrast suggesting possible blood products; however, no signal abnormality seen in this area on the b lood sensitive gradient echo sequence. Ventricles are stable in size. No evidence of midline shift. No extra-axial fluid or blood collecti ons in the supratentorial brain. The visualized portion orbits and paranasal sinuses is unremarkable . CONCLUSION: There is a small sinus tract through the skin which connects to a subcutaneous fluid collection. The subcutaneous fluid collection appears to connect to the surgical cavity in the posterior fossa. Thi s suggests potential connection from the skin into the posterior fossa. Kendrick Hoyos MD on August 03, 2017 at 20:04 Board Certified Radiologist. This report was verified electronically.
--- NOTE | 2017-08-03 20:27 | RADRPT ---
EXAM DATE/TIME: 08/03/2017 19:13 [facility] COMPARISON: No previous studies available for comparison. INDICATIONS : Cephalgia, drainage neck surgical site. CONTRAST: 16 cc Omniscan (gadodiamide) IV MEDICAL HISTORY : Carcinoma, prostate. Hypertension. SURGICAL HISTORY : Craniotomy. Prostatectomy. ENCOUNTER: Initial ACUITY: 1 day PAIN SCORE: 0/10 LOCATION: [facility] TECHNIQUE: Multiplanar, multisequence MRI examination of the cervical spine was performed. FINDINGS: Occipital suboccipital craniotomy for removal of 4th ventricle tumor. There is a large fluid collect ion at the surgical site which extends into the soft tissues of the posterior upper cervical region d own to the level of C4. There is a thin membrane dividing this fluid collection into a intrathecal a nd extrathecal space, but on some of the axial images there may be a discontinuity in the membrane.. This fluid collection extends into the subcutaneous tissues and there is also evidence of a sinus tr act through the skin (best seen on axial images) providing connection from the skin to the thecal spa ce. There is an inhomogeneous thickness peripheral enhancement about the surgical cavity in the enha ncement does surround the posterior arch of C1. No signal abnormality within the marrow the arch of C1. The fluid collection measures 7.4 cm in superior/inferior extent and 5.3 cm in AP dimension. There are multilevel discogenic degenerative changes with broad-based bulging or protrusions of the C 4-5, C5-6, and C6-7 vertebral bodies causing loss of CSF about the cervical cord. No abnormal enhanc ement in the cervical thecal sac or in the cervical cord. CONCLUSION: 1. Postsurgical changes from occipital suboccipital craniotomy. 2. Subcutaneous fluid collection adjacent to the posterior fossa has enhancement in the wall and ther e is also evidence of a sinus tract through the skin in the midline low occipital region. Possible c onnection between the subcutaneous and intrathecal fluid collections. The wall enhancement in the pretty bcutaneous component suggests this may be a developing abscess. Kendrick Hoyos MD on August 03, 2017 at 20:18 Board Certified Radiologist. This report was verified electronically.
[2017-08-03 22:12] VITALS: BP 131/86; PULSE 70; RESP 15; O2SAT 96
[2017-08-03] MEDS ORDERED: HYDROmorphone HCL PF 1 MG/ML VIAL IV PUSH ONE (22:30)
--- NOTE | 2017-08-03 23:41 | HHI.HP ---
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 Hunter, now presents here for evaluation of posterior neck pain at the surgical site swelling, fever , and pain behind his eyes. Symptoms started 2 days ago and have progressively worsened. Pain is 10 out of 10, constant, worse with movement and palpation. Pain in his posterior neck is described as pressure, and pain behind his eyes is described as sharp. No visual changes. No paresthesias or motor deficits. He has had a fever at home with temperatures ranging between 99 and 102F. Review of Systems Constitutional: COMPLAINS OF: Diaphoretic episodes, Fever, DENIES: Fatigue, Weight gain, Weight loss, Chills, Dizziness, Change in appetite, Night Sweats Endocrine: DENIES: Heat/cold intolerance, Polydipsia, Polyuria, Polyphagia Eyes: DENIES: Blurred vision, Diplopia, Eye inflammation, Eye pain, Vision loss , Photosensitivity, Double Vision Ears, nose, mouth, throat: DENIES: Tinnitus, Hearing loss, Vertigo, Nasal discharge, Oral lesions, Throat pain, Hoarseness, Ear Pain, Running Nose, Epistaxis, Sinus Pain, Toothache, Odynophagia Respiratory: DENIES: Apneas, Cough, Snoring, Wheezing, Hemoptysis, Sputum production, Shortness of breath Cardiovascular: DENIES: Chest pain, Palpitations, Syncope, Dyspnea on Exertion , PND, Lower Extremity Edema, Orthopnea, Claudication Gastrointestinal: DENIES: Abdominal pain, Black stools, Bloody stools, Constipation, Diarrhea, Nausea, Vomiting, Difficulty Swallowing, Anorexia Genitourinary: DENIES: Sexual dysfunction, Urinary frequency, Urinary incontinence, Urgency, Hematuria, Dysuria, Nocturia, Penile Discharge, Testicular Pain, Testicular Swelling Musculoskeletal: DENIES: Joint pain, Muscle aches, Stiffness, Joint Swelling, Back pain, Neck pain Integumentary: DENIES: Abnormal pigmentation, Nail changes, Pruritus, Rash Hematologic/lymphatic: DENIES: Bruising, Lymphadenopathy Immunologic/allergic: DENIES: Eczema, Urticaria Neurologic: DENIES: Abnormal gait, Headache, Localized weakness, Paresthesias, Seizures, Speech Problems, Tremor, Poor Balance Psychiatric: DENIES: Anxiety, Confusion, Mood changes, Depression, Hallucinations, Agitation, Suicidal Ideation, Homicidal Ideation, Delusions Past Family Social History Allergies: Coded Allergies: Sulfa (Sulfonamide Antibiotics) (Unverified Allergy, Unknown, Rash, ) amoxicillin (Unverified Allergy, Unknown, Anaphylaxis, 08/03/17) aspirin (Unverified Allergy, Unknown, Rash, 08/03/17) ciprofloxacin (Unverified Allergy, Unknown, Anaphylaxis, 08/03/17) hydrocodone (Unverified Allergy, Unknown, Rash, 08/03/17) ibuprofen (Unverified Allergy, Unknown, Rash, 08/03/17) naproxen (Unverified Allergy, Unknown, Rash, 08/03/17) oxycodone (Unverified Allergy, Unknown, Rash, 08/03/17) penicillin G (Unverified Allergy, Unknown, Anaphylaxis, 08/03/17) sulfamethoxazole (Unverified Allergy, Unknown, Rash, 08/03/17) trimethoprim (Unverified Allergy, Unknown, Rash, 08/03/17) Past Medical History Hypertension Prostate cancer Allergic rhinitis Past Surgical History Prostatectomy Appendectomy Hernia repair Stereotactic image guided suboccipital craniectomy, C1 laminectomy, Microsurgical resection of fourth ventricular ependymoma Reported Medications Reported Meds & Active Scripts Active Dilaudid (Hydromorphone HCl) 2 Mg Tab 2 Mg PO Q6H PRN Protonix (Pantoprazole Sodium) 40 Mg Tab 40 Mg PO DAILY Walker with Front Wheels (Device) 1 Mis Mis Ea .ROUTE DIRECTED Reported Fluticasone Nasal [place] 50 Mcg/Act Naspr 50 Mcg EACH NARE BID 50 mcg/spray Amlodipine (Amlodipine Besylate) 2.5 Mg Tab 2.5 Mg PO BID Spironolactone 25 Mg Tab 25 Mg PO DAILY Lisinopril 40 Mg Tab 40 Mg PO BID Bystolic (Nebivolol) 10 Mg Tab 10 Mg PO HS Active Ordered Medications Current Medications Medications (Trade) Dose Ordered Sig/Geovany Route PRN Reason Start Time Stop Time Status Last Admin Dose Admin Fluticasone Propionate (Flonase Cortes Spr) 1 spray BID EACH NARE 08/04/17 09:00 Hydromorphone HCl (Dilaudid) 2 mg Q6H PRN PO Pain Management 08/04/17 00:00 08/04/17 01:05 Pantoprazole Sodium (Protonix) 40 mg DAILY PO 08/04/17 09:00 Sodium Chloride 1,000 ml @ 75 mls/hr [id number] IV 08/03/17 23:49 Sodium Chloride (NS Flush) 2 ml UNSCH PRN IV FLUSH FLUSH AFTER USING IV ACCESS 08/04/17 00:00 Sodium Chloride (NS Flush) 2 ml BID IV FLUSH 08/04/17 09:00 Famotidine (Pepcid Inj) 20 mg Q12HR IV PUSH 08/04/17 09:00 Albuterol/ Ipratropium (Duoneb Neb) 1 ampule Q2HR NEB PRN INH WHEEZING 08/04/17 00:00 Heparin Sodium (Porcine) (Heparin Inj) 5,000 units Q8H SQ 08/04/17 00:00 08/04/17 00:33 Aztreonam 2000 mg/ Sodium Chloride 100 ml @ 200 mls/hr Q8H IV 08/04/17 01:00 08/04/17 01:44 Metronidazole 100 ml @ 100 mls/hr Q8H IV 08/04/17 00:00 08/04/17 00:32 Pharmacy Profile Note 0 ml @ 0 mls/hr UNSCH OTHER 08/04/17 00:00 Miscellaneous Information 1 Q361D XX 08/04/17 00:00 08/04/17 00:42 Chlorhexidine Gluconate (Chlorhexidine 2% Cloth) 3 pack Taper DAILY@04 TOP 08/04/17 04:00 07/31/18 03:59 Chlorhexidine Gluconate (Chlorhexidine 2% Cloth) 3 pack UNSCH PRN TOP HYGIENIC CARE 08/04/17 00:00 Vancomycin HCl 1300 mg/Sodium Chloride 513 ml @ 250 mls/hr Q12H IV 08/04/17 06:00 Miscellaneous Information SPECIFIC LAB TO BE INDRA... ONCE ONCE .XX 08/05/17 17:45 08/05/17 17:46 Family History Adopted. Grandmother with cancer. Positive rheumatoid arthritis Social History Denies tobacco, alcohol or IV drug use Physical Exam Vital Signs Vital Signs Date Time Temp Pulse Resp B/P (MAP) Pulse Ox O2 Delivery O2 Flow Rate FiO2 08/03/17 23:15 70 16 96 08/03/17 22:12 70 15 131/86 (101) 96 Room Air 08/03/17 20:06 98.5 75 18 125/73 (90) 95 Room Air 08/03/17 18:28 101.7 72 18 144/75 (98) 96 Room Air 08/03/17 18:28 Room Air 08/03/17 17:14 99.5 73 18 175/91 (119) 96 Physical Exam GENERAL: Well-developed, well-nourished, awake, alert, no apparent distress. SKIN: Focused skin assessment warm/dry. Posterior neck/occipital scalp with midline vertical surgical scar that is well-healed with surrounding warmth and erythema with underlying fluctuance and induration. This area was evaluated using a bedside ultrasound linear probe in shows a circular fluid collection approximately 1.5 cm x 1.5 cm. HEAD: Atraumatic. Normocephalic. EYES: Pupils equal and round. No scleral icterus. No injection or drainage. ENT: No nasal bleeding or discharge. Mucous membranes pink and moist. NECK: Trachea midline. No JVD. Skin exam as above. No nuchal rigidity. CARDIOVASCULAR: Regular rate and rhythm. RESPIRATORY: No accessory muscle use. Clear to auscultation. Breath sounds equal bilaterally. GASTROINTESTINAL: Abdomen soft, non-tender, nondistended. MUSCULOSKELETAL: No obvious deformities. No clubbing. No cyanosis. No edema. NEUROLOGICAL: Awake and alert. No obvious cranial nerve deficits. Motor grossly within normal limits. Normal speech. PSYCHIATRIC: Appropriate mood and affect; insight and judgment normal. Laboratory Laboratory Tests Test 08/03/17 17:50 White Blood Count 12.2 Red Blood Count 3.76 Hemoglobin 11.0 Hematocrit 33.3 Mean Corpuscular Volume 88.4 Mean Corpuscular Hemoglobin 29.2 Mean Corpuscular Hemoglobin Concent 33.0 Red Cell Distribution Width 14.7 Platelet Count 252 Mean Platelet Volume 8.2 Neutrophils (%) (Auto) 59.9 Lymphocytes (%) (Auto) 28.6 Monocytes (%) (Auto) 9.0 Eosinophils (%) (Auto) 0.7 Basophils (%) (Auto) 1.8 Neutrophils # (Auto) 7.3 Lymphocytes # (Auto) 3.5 Monocytes # (Auto) 1.1 Eosinophils # (Auto) 0.1 Basophils # (Auto) 0.2 CBC Comment DIFF FINAL Differential Comment Prothrombin Time 10.5 Prothromb Time International Ratio 1.0 Activated Partial Thromboplast Time 22.7 Blood Urea Nitrogen 12 Creatinine 0.91 Random Glucose 100 Total Protein 8.1 Albumin 3.4 Calcium Level 9.0 Alkaline Phosphatase 80 Aspartate Amino Transf (AST/SGOT) 18 Alanine Aminotransferase (ALT/SGPT) 28 Total Bilirubin 0.9 Sodium Level 135 Potassium Level 3.8 Chloride Level 102 Carbon Dioxide Level 22.4 Anion Gap 11 Estimat Glomerular Filtration Rate 84 Lactic Acid Level 0.9 Date/Time Source Procedure Growth Status 08/03/17 18:00 Blood Peripheral Aerobic Blood Culture Pending Received 08/03/17 18:00 Blood Peripheral Anaerobic Blood Culture Pending Received Result Diagram: 08/03/17174908/03/17 175 Kushalrini VTE Risk Assessment Caprini VTE Risk Assessment: Mod/High Risk (score >= 2) Caprini Risk Assessment Model Point Value = 1 Point Value = 2 Point Value = 3 Point Value = 5 Age 41-60 Minor surgery BMI > 25 kg/m2 Swollen legs Varicose veins or History of unexplained or recurrent spontaneous Oral contraceptives or hormone replacement Sepsis (< 1 month) Serious lung disease, including pneumonia (< 1 month) Abnormal pulmonary function Acute myocardial infarction Congestive heart failure (< 1 month) History of inflammatory bowel disease Medical patient at bed rest Age 61-74 Arthroscopic surgery Major open surgery (> 45 min) Laparoscopic surgery (> 45 min) Malignancy Confined to bed (> 72 hours) Immobilizing plaster cast Central venous access Age >= 75 History of VTE Family history of VTE Factor V Leiden Prothrombin [id number] Lupus anticoagulant Anticardiolipin antibodies Elevated serum homocysteine Heparin-induced thrombocytopenia Other congenital or acquired thrombophilia Stroke (< 1 month) Elective arthroplasty Hip, pelvis, or leg fracture Acute spinal cord injury (< 1 month) Prophylaxis Regimen Total Risk Factor Score Risk Level Prophylaxis Regimen 0-1 Low Early ambulation 2 Moderate Order ONE of the following: *Sequential Compression Device (SCD) *Heparin 5000 units SQ BID 3-4 Higher Order ONE of the following medications: *Heparin 5000 units SQ TID *Enoxaparin/Lovenox 40 mg SQ daily (WT < 150 kg, CrCl > 30 mL/min) *Enoxaparin/Lovenox 30 mg SQ daily (WT < 150 kg, CrCl > 10-29 mL/min) *Enoxaparin/Lovenox 30 mg SQ BID (WT < 150 kg, CrCl > 30 mL/min) AND/OR *Sequential Compression Device (SCD) 5 or more Highest Order ONE of the following medications: *Heparin 5000 units SQ TID (Preferred with Epidurals) *Enoxaparin/Lovenox 40 mg SQ daily (WT < 150 kg, CrCl > 30 mL/min) *Enoxaparin/Lovenox 30 mg SQ daily (WT < 150 kg, CrCl > 10-29 mL/min) *Enoxaparin/Lovenox 30 mg SQ BID (WT < 150 kg, CrCl > 30 mL/min) AND *Sequential Compression Device (SCD) Assessment and Plan Assessment and Plan Wound edema/hygroma - Status post Stereotactic image guided suboccipital craniectomy, - C1 laminectomy, - Microsurgical resection of fourth ventricular ependymoma - IR consult for CT-guided drainage - Broad-spectrum antibiotics , vancomycin, Flagyl, aztreonam - De-escalate per culture and sensitivity - Further per neurosurgery Hypertension - Hold home antihypertensive meds in settings of infection and possible sepsis - Resume when hemodynamically stable Neuropathy - Gabapentin GERD - Pantoprazole DVT GI prophylaxis - Teds SCDs - Pharmacological DVT prophylaxis per neurosurgery - Pantoprazole Critical Care: The total critical care time was 35 minutes. Time to perform other separately billable procedures was not included in the critical care time. David Aponte MD Aug 03, 2017 23:41
[2017-08-03] MEDS ORDERED: SODIUM CHLOR 0.9% 1000 ML INJ 100 ML IV ONE (23:49)
[2017-08-03] MEDS ORDERED: SODIUM CHLOR 0.9% 1000 ML INJ 1,000 ML IV ONE ×2 (23:49)
[2017-08-04] VITALS (15 sets, daily range): BP systolic 135–158; BP diastolic 79–89; PULSE 52–74; RESP 17–28; TEMP 98–98.7; O2SAT 95–100
[2017-08-04] MEDS ORDERED: MISCELLANEOUS NURSING INFORMATION XX SCH
[2017-08-04] MEDS ORDERED: CHLORHEXIDINE GLUCONATE 2 % 1 PACK (2 CLOTHS) TOP PRN
[2017-08-04] MEDS ORDERED: SODIUM CHLORIDE 0.9% FLUSH 10 ML FLUSH IV FLUSH PRN
[2017-08-04] MEDS ORDERED: Vancomycin Consult Pharmacy 1 EA OTHER SCH
[2017-08-04] MEDS ORDERED: RESP: ALBUTEROL 2.5 MG/IPRATROPIUM 0.5 MG NEB (PRN) INH
[2017-08-04] MEDS: metroNIDAZOLE 500 MG INJ 100 ML IV SCH ×3 (00:32→16:59)
[2017-08-04] MEDS: HEPARIN SODIUM - SQ 10,000 UNITS/ML VIAL SQ SCH ×3 (00:33→16:00)
[2017-08-04] MEDS: HYDROmorphone HCL 2 MG TAB PO PRN ×2 (01:05→07:03)
[2017-08-04] MEDS: AZTREONAM INJ 2,000 MG in SODIUM CHLORIDE 0.9% INJ 100 ML IV SCH ×3 (01:44→18:15)
[2017-08-04 02:21] LABS: BILIRUBIN, URINE NEG (NEG); BLOOD, URINE NEG (NEG); GLUCOSE,URINE NEG (NEG); KETONE, URINE NEG (NEG); MUCUS URINE FEW /lpf (OCC); NITRITE,URINE NEG (NEG); PH, URINE 5.5 (5.0-8.5); URINE COLOR YELLOW (YELLW/STRAW); URINE LEUKOCYTE ESTERASE NEG (NEG)
[2017-08-04] MEDS: SODIUM CHLOR 0.9% 1000 ML INJ 1,000 ML IV SCH ×2 (03:15→13:11)
[2017-08-04] MEDS: CHLORHEXIDINE GLUCONATE 2 % 1 PACK (2 CLOTHS) TOP SCH (03:56)
[2017-08-04 04:17] LABS: AUTOMATED NEUTROPHIL # 4.8 TH/MM3 (1.8-7.7); BASOPHIL # 0.1 TH/MM3 (0-0.2); EOSINOPHIL # 0.2 TH/MM3 (0-0.4); EOSINOPHIL % 1.8 % (0.0-4.0); HEMATOCRIT 28.9 % (39.0-51.0); HEMOGLOBIN 9.5 GM/DL (13.0-17.0); LYMPH % 33.8 % (9.0-44.0); LYMPHOCYTE # 3.1 TH/MM3 (1.0-4.8); MEAN CELL VOLUME 92.1 FL (80.0-100.0); MEAN CORPUSCULAR HEMOGLOBIN 30.5 PG (27.0-34.0); MEAN CORPUSCULAR HGB CONC 33.1 % (32.0-36.0); MEAN PLATELET VOLUME 7.5 FL (7.0-11.0); MONO % 11.2 % (0.0-8.0); NEUT % 52.2 % (16.0-70.0); PLATELET COUNT 177 TH/MM3 (150-450); RED BLOOD COUNT 3.13 MIL/MM3 (4.50-5.90); RED CELL DISTRIBUTION WIDTH 15.8 % (11.6-17.2); WHITE BLOOD COUNT 9.1 TH/MM3 (4.0-11.0)
[2017-08-04 04:36] LABS: ALBUMIN 2.8 GM/DL (3.4-5.0); AST (GOT) 16 U/L (15-37); BICARBONATE 26.3 MEQ/L (21.0-32.0); BLOOD UREA NITROGEN 10 MG/DL (7-18); CALCIUM 7.9 MG/DL (8.5-10.1); CHLORIDE 107 MEQ/L (98-107); CREATININE 0.87 MG/DL (0.60-1.30); GLOMERULAR FILTRATION RATE 88 ML/MIN (>89); GLUCOSE,RANDOM 106 MG/DL (74-106); MAGNESIUM 1.6 MG/DL (1.5-2.5); SODIUM (NA) 138 MEQ/L (136-145)
[2017-08-04 04:39] LABS: ALKALINE PHOSPHATASE 64 U/L (45-117); ALT (GPT) 23 U/L (12-78); PHOSPHORUS 2.3 MG/DL (2.5-4.9); TOTAL BILIRUBIN ADULT 0.8 MG/DL (0.2-1.0); TOTAL PROTEIN 6.5 GM/DL (6.4-8.2)
[2017-08-04] MEDS: VANCOMYCIN INJ 1,300 MG in SODIUM CHLORID 0.9% 500 ML INJ 500 ML IV SCH ×2 (06:19→20:02)
[2017-08-04] MEDS: FAMOTIDINE 20 MG/2 ML VIAL IV PUSH SCH ×2 (08:19→20:03)
[2017-08-04] MEDS: PANTOPRAZOLE SOD 40 MG DELAYED RELEASE TAB PO SCH (08:20)
[2017-08-04] MEDS: SODIUM CHLORIDE 0.9% FLUSH 10 ML FLUSH IV FLUSH SCH ×2 (09:00→20:03)
[2017-08-04] MEDS ORDERED: ACETAMINOPHEN/HYDROcodone 325 MG/10 MG TAB PO PRN ×2 (09:00)
--- NOTE | 2017-08-04 09:33 | HHI.CCPN ---
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 Hunter, now presents here for evaluation of posterior neck pain at the surgical site swelling, fever , and pain behind his eyes. Symptoms started 2 days ago and have progressively worsened. Pain is 10 out of 10, constant, worse with movement and palpation. Pain in his posterior neck is described as pressure, and pain behind his eyes is described as sharp. No visual changes. No paresthesias or motor deficits. He has had a fever at home with temperatures ranging between 99 and 102F. Objective Vital Signs Date Time Temp Pulse Resp B/P (MAP) Pulse Ox O2 Delivery O2 Flow Rate FiO2 08/04/17 07:16 95 21 08/04/17 06:00 53 08/04/17 04:00 98.7 17 155/82 (106) 08/03/17 22:12 Room Air Intake and Output 08/04/17 08/04/17 08/05/17 08:00 16:00 00:00 Intake Total 2606 ml Output Total 1225 ml Balance 1381 ml Result Diagram: 08/04/17 0355 08/04/17 0355 Objective Remarks GENERAL: Well-developed, well-nourished, awake, alert, no apparent distress. SKIN: Focused skin assessment warm/dry. Posterior neck/occipital scalp with midline vertical surgical scar that is well-healed with surrounding warmth and erythema with underlying fluctuance and induration. This area was evaluated using a bedside ultrasound linear probe in shows a circular fluid collection approximately 1.5 cm x 1.5 cm. HEAD: Atraumatic. Normocephalic. EYES: Pupils equal and round. No scleral icterus. No injection or drainage. ENT: No nasal bleeding or discharge. Mucous membranes pink and moist. NECK: Trachea midline. No JVD. Skin exam as above. No nuchal rigidity. CARDIOVASCULAR: Regular rate and rhythm. RESPIRATORY: No accessory muscle use. Clear to auscultation. Breath sounds equal bilaterally. GASTROINTESTINAL: Abdomen soft, non-tender, nondistended. MUSCULOSKELETAL: No obvious deformities. No clubbing. No cyanosis. No edema. NEUROLOGICAL: Awake and alert. No obvious cranial nerve deficits. Motor grossly within normal limits. Normal speech. PSYCHIATRIC: Appropriate mood and affect; insight and judgment normal. A/P Assessment and Plan Wound edema/hygroma - Status post Stereotactic image guided suboccipital craniectomy, - C1 laminectomy, - Microsurgical resection of fourth ventricular ependymoma - IR consult for CT-guided drainage today - Broad-spectrum antibiotics , vancomycin, Flagyl, aztreonam - De-escalate per culture and sensitivity - Further per neurosurgery Hypertension - Hold home antihypertensive meds in settings of infection and possible sepsis - Resume when hemodynamically stable - Continue to hold Neuropathy - Gabapentin GERD - Pantoprazole - DC Pepcid DVT GI prophylaxis - Teds SCDs - Pharmacological DVT prophylaxis per neurosurgery - Pantoprazole Level III David Aponte MD Aug 04, 2017 09:33
[2017-08-04] MEDS: GABAPENTIN 300 MG CAP PO SCH (09:59)
[2017-08-04] MEDS: FLUTICASONE PROPIONATE 50 MCG/ACT 16 GM NASAL SPRAY EACH NARE SCH ×2 (10:10→20:03)
[2017-08-04] MEDS ORDERED: POTASSIUM PHOSPHATE MONOBASIC 500 MG TAB PO/TUBE PRN (13:45)
[2017-08-04] MEDS ORDERED: POTASSIUM PHOSPHATE INJ 30 MMOL in SODIUM CHLOR 0.9% 250 ML INJ 250 ML IV PRN (13:45)
[2017-08-04] MEDS ORDERED: POTASSIUM CHLORIDE 25 MEQ EFFERVESCENT TAB PO PRN (13:45)
[2017-08-04] MEDS ORDERED: MAGNESIUM SULFATE INJ 2 GM in SODIUM CHLORIDE 0.9% INJ 96 ML IV PRN (13:45)
[2017-08-04] MEDS ORDERED: POTASSIUM PHOSPHATE MONOBASIC 500 MG TAB PO PRN (13:45)
[2017-08-04] MEDS ORDERED: MAGNESIUM OXIDE 400 MG TAB PO PRN (13:45)
[2017-08-04] MEDS ORDERED: SODIUM PHOSPHATE INJ 30 MMOL in SODIUM CHLOR 0.9% 250 ML INJ 240 ML IV PRN (13:45)
[2017-08-04] MEDS ORDERED: MAGNESIUM SULFATE INJ 4 GM in SODIUM CHLORIDE 0.9% INJ 92 ML IV PRN (13:45)
[2017-08-04] MEDS ORDERED: POTASSIUM CHLOR 40 MEQ PREMIX 100 ML IV PRN ×2 (13:45)
[2017-08-04] MEDS ORDERED: POTASSIUM CHLOR 20 MEQ PREMIX 100 ML IV PRN ×2 (13:45)
[2017-08-04] MEDS ORDERED: LIDOCAINE 1%/EPINEPHrine 1:100,000 SOLN 20 ML VIAL ONE (15:47)
--- NOTE | 2017-08-04 16:28 | OTSOAPIP ---
TIME SESSION COMPLETED: 1032 TREATMENT TIME: 0 MINS. CHART REVIEWED. ATTEMPTED TO SEE FOR OT EVALUATION, HOWEVER DEFERRED PER NURSING REQUEST. PT TO HAVE ASPIRATION PROCEDURE LATER. WILL FOLLOW. Therapist: EVANS MIKE OT/Sourav Signature on file
--- NOTE | 2017-08-04 16:37 | HHI.NSPN ---
Note Status Status: Progress Note Interval History Interval History Mr. Samaniego is a 67 year old male who underwent a suboccipital craniectomy for resection of fourth ventricle mass. He was doing well previously, his surgical wound healing well. He noted Friday swelling over his surgical site and drainage. He also developed fevers thus he presented to ED for evaluation. He is feeling better this morning, he states the swelling has reduced. He does have moderate discomfort to his posterior cervical region. Labs, Micro, & Vital Signs Results Date Time Temp Pulse Resp B/P (MAP) Pulse Ox O2 Delivery O2 Flow Rate FiO2 08/04/17 14:00 55 08/04/17 12:00 98.7 53 20 144/86 (105) 97 08/04/17 12:00 53 08/04/17 10:00 54 08/04/17 10:00 98.7 54 24 139/79 (99) 97 08/04/17 08:00 54 08/04/17 07:16 95 21 08/04/17 07:00 100 Room Air 08/04/17 06:00 53 08/04/17 04:00 98.7 52 17 155/82 (106) 100 08/04/17 04:00 52 08/04/17 02:00 56 08/04/17 01:02 100 08/04/17 00:00 73 08/04/17 00:00 98.0 73 19 135/82 (99) 97 Manual Cuff/Auscultation 08/03/17 23:15 70 16 96 08/03/17 22:12 70 15 131/86 (101) 96 Room Air 08/03/17 20:06 98.5 75 18 125/73 (90) 95 Room Air 08/03/17 18:28 101.7 72 18 144/75 (98) 96 Room Air 08/03/17 18:28 Room Air 08/03/17 17:14 99.5 73 18 175/91 (119) 96 08/05/17 07:00 Output Total 880 ml Balance -880 ml Constitutional Vital Signs Date Time Temp Pulse Resp B/P (MAP) Pulse Ox O2 Delivery O2 Flow Rate FiO2 08/04/17 14:00 55 08/04/17 12:00 98.7 53 20 144/86 (105) 97 08/04/17 12:00 53 08/04/17 10:00 54 08/04/17 10:00 98.7 54 24 139/79 (99) 97 08/04/17 08:00 54 08/04/17 07:16 95 21 08/04/17 07:00 100 Room Air 08/04/17 06:00 53 08/04/17 04:00 98.7 52 17 155/82 (106) 100 08/04/17 04:00 52 08/04/17 02:00 56 08/04/17 01:02 100 08/04/17 00:00 73 08/04/17 00:00 98.0 73 19 135/82 (99) 97 Manual Cuff/Auscultation 08/03/17 23:15 70 16 96 08/03/17 22:12 70 15 131/86 (101) 96 Room Air 08/03/17 20:06 98.5 75 18 125/73 (90) 95 Room Air 08/03/17 18:28 101.7 72 18 144/75 (98) 96 Room Air 08/03/17 18:28 Room Air 08/03/17 17:14 99.5 73 18 175/91 (119) 96 08/05/17 07:00 Output Total 880 ml Balance -880 ml Physical Exam swelling suboccipital and upper posterior cervical region. His incision appears closed, there is mild redness surrounding the incision but appears more normal scarring. There is some tenderness to palpation over the site. No drainage currently seen. CN: pupils equal, facial motor symmetric Motor: moves all four extremities well and symmetrically Cerebellar: intact finger to nose Medications Current Medications Current Medications Medications (Trade) Dose Ordered Sig/Geovany Route PRN Reason Start Time Stop Time Status Last Admin Dose Admin Fluticasone Propionate (Flonase Cortes Spr) 1 spray BID EACH NARE 08/04/17 09:00 08/04/17 10:10 Hydromorphone HCl (Dilaudid) 2 mg Q6H PRN PO Pain Management 08/04/17 00:00 08/04/17 07:03 Pantoprazole Sodium (Protonix) 40 mg DAILY PO 08/04/17 09:00 08/04/17 08:20 Sodium Chloride 1,000 ml @ 75 mls/hr [id number] IV 08/03/17 23:49 08/04/17 13:11 Sodium Chloride (NS Flush) 2 ml UNSCH PRN IV FLUSH FLUSH AFTER USING IV ACCESS 08/04/17 00:00 Sodium Chloride (NS Flush) 2 ml BID IV FLUSH 08/04/17 09:00 Famotidine (Pepcid Inj) 20 mg Q12HR IV PUSH 08/04/17 09:00 08/04/17 08:19 Albuterol/ Ipratropium (Duoneb Neb) 1 ampule Q2HR NEB PRN INH WHEEZING 08/04/17 00:00 Heparin Sodium (Porcine) (Heparin Inj) 5,000 units Q8H SQ 08/04/17 00:00 08/04/17 00:33 Aztreonam 2000 mg/ Sodium Chloride 100 ml @ 200 mls/hr Q8H IV 08/04/17 01:00 08/04/17 09:59 Metronidazole 100 ml @ 100 mls/hr Q8H IV 08/04/17 00:00 08/04/17 08:14 Pharmacy Profile Note 0 ml @ 0 mls/hr UNSCH OTHER 08/04/17 00:00 Miscellaneous Information 1 Q361D XX 08/04/17 00:00 08/04/17 00:42 Chlorhexidine Gluconate (Chlorhexidine 2% Cloth) 3 pack Taper DAILY@04 TOP 08/04/17 04:00 07/31/18 03:59 Chlorhexidine Gluconate (Chlorhexidine 2% Cloth) 3 pack UNSCH PRN TOP HYGIENIC CARE 08/04/17 00:00 Vancomycin HCl 1300 mg/Sodium Chloride 513 ml @ 250 mls/hr Q12H IV 08/04/17 06:00 08/04/17 06:19 Miscellaneous Information SPECIFIC LAB TO BE INDRA... ONCE ONCE .XX 08/05/17 17:45 08/05/17 17:46 Gabapentin (Neurontin) 300 mg DAILY PO 08/04/17 09:30 08/04/17 09:59 Potassium Chloride 100 ml @ 50 mls/hr Q2H PRN IV For Potassium 2.8 - 3.2 mEq/L 08/04/17 13:45 Potassium Chloride 100 ml @ 50 mls/hr Q2H PRN IV For Potassium 2.8 - 3.2 mEq/L 08/04/17 13:45 Potassium Bicarb/ Potassium Chloride (K-Lyte Cl Eff) 50 meq UNSCH PRN PO For Potassium 3.3 - 3.5 mEq/L 08/04/17 13:45 Potassium Chloride 100 ml @ 25 mls/hr UNSCH PRN IV For Potassium 3.3 - 3.5 mEq/L 08/04/17 13:45 Potassium Chloride 100 ml @ 50 mls/hr Q2H PRN IV For Potassium 3.3 - 3.5 mEq/L 08/04/17 13:45 Magnesium Sulfate 4 gm/Sodium Chloride 100 ml @ 50 mls/hr UNSCH PRN IV For Magnesium 0.9 - 1.1 mg/dL 08/04/17 13:45 Magnesium Oxide (Mag-Ox) 800 mg UNSCH PRN PO For Magnesium 1.2 - 1.6 mg/dL 08/04/17 13:45 Magnesium Sulfate 2 gm/Sodium Chloride 100 ml @ 50 mls/hr UNSCH PRN IV For Magnesium 1.2 - 1.6 mg/dL 08/04/17 13:45 Potassium Phosphate (K-Phos) 2,000 mg Q4H PRN PO For Phosphorus < 2.5 mg/dL 08/04/17 13:45 Sodium Phosphate 30 mmol/Sodium Chloride 250 ml @ 42 mls/hr UNSCH PRN IV For Phosphorus < 2.5 mg/dL 08/04/17 13:45 Potassium Phosphate (K-Phos) 2,000 mg UNSCH PRN PO/TUBE SEE LABEL COMMENTS 08/04/17 13:45 Potassium Phosphate 30 mmol/ Sodium Chloride 260 ml @ 42 mls/hr UNSCH PRN IV SEE LABEL COMMENTS 08/04/17 13:45 Medical Decision Making MDM Remarks 67 y/o male presents with fever, incision pain and drainage MRI Brain, C-spine shows fluid collection within the surgical bed Plan Plan Remarks Dr. Hunter reviewed MRI studies, recommend CT guided needle aspiration of fluid for cultures cont empiric antibiotic critical care mgt Claudia Camacho Aug 04, 2017 16:37
--- NOTE | 2017-08-04 16:56 | RADRPT ---
EXAM DATE/TIME: 08/04/2017 16:06 [place] COMPARISON: No previous studies available for comparison. INDICATIONS : Subgaleal fluid collection. DEVICE(S): 1.) 18 gauge Bobo blunt needle FLUID: Total volume of 10 cc of cloudy, yellow fluid was removed. Fluid was sent for laboratory ordered studies. MEDICAL HISTORY : Carcinoma, prostate. Hypertension. SURGICAL HISTORY : Prostatectomy. brain tumor removed ENCOUNTER: Initial ACUITY: 1 day PAIN SCORE: 0/10 LOCATION: Posterior neck PROCEDURE: 1.) Conscious sedation with continuous EKG and oximetry monitoring. 2.) EKG and oximetry remained stable throughout the procedure. PROCEDURE : CT guided aspiration of posterior neck collection The risks, benefits and alternatives to the procedure were explained and verbal and written consent w as obtained. Using automated exposure control and adjustment of the mA and/or kV according to patien t size, radiation dose was kept as low as reasonably achievable to obtain optimal diagnostic quality images. The site was prepped in sterile fashion. Full sterile technique was used, including cap, ma sk, sterile gloves and gown and a large sterile sheet. Hand hygiene and 2% chlorhexidine and/or beta dine/alcohol prep was utilized per protocol for cutaneous antisepsis. The skin and subcutaneous tiss ues were infiltrated with local anesthetic solution. DICOM format image data is available electronic ally for review and comparison. An 18 gauge Bobo needle was passed into the collection with CT guidance. 10 cc of mildly cloudy ye llow fluid was aspirated and sent for Gram stain as well as culture and sensitivity. The patient tole rated the procedure well without complications. CONCLUSION: Uncomplicated CT-guided posterior neck fluid collection aspiration as above. Sean Gary MD on August 04, 2017 at 16:53 Board Certified Radiologist. This report was verified electronically.
[2017-08-05] VITALS (7 sets, daily range): BP systolic 127–155; BP diastolic 65–90; PULSE 56–64; RESP 20–25; TEMP 98.2–98.8; O2SAT 93–97
[2017-08-05] MEDS: metroNIDAZOLE 500 MG INJ 100 ML IV SCH ×2 (01:39→08:34)
[2017-08-05] MEDS: HEPARIN SODIUM - SQ 10,000 UNITS/ML VIAL SQ SCH ×2 (01:39→08:33)
[2017-08-05] MEDS: AZTREONAM INJ 2,000 MG in SODIUM CHLORIDE 0.9% INJ 100 ML IV SCH ×2 (01:40→09:00)
[2017-08-05] MEDS: SODIUM CHLOR 0.9% 1000 ML INJ 1,000 ML IV SCH (02:29)
[2017-08-05] MEDS: CHLORHEXIDINE GLUCONATE 2 % 1 PACK (2 CLOTHS) TOP SCH (03:12)
[2017-08-05 04:53] LABS: AUTOMATED NEUTROPHIL # 3.5 TH/MM3 (1.8-7.7); BASOPHIL % 0.4 % (0.0-2.0); EOSINOPHIL # 0.2 TH/MM3 (0-0.4); HEMATOCRIT 27.9 % (39.0-51.0); HEMOGLOBIN 9.4 GM/DL (13.0-17.0); LYMPH % 35.6 % (9.0-44.0); LYMPHOCYTE # 2.4 TH/MM3 (1.0-4.8); MEAN CELL VOLUME 90.9 FL (80.0-100.0); MEAN CORPUSCULAR HEMOGLOBIN 30.7 PG (27.0-34.0); MEAN CORPUSCULAR HGB CONC 33.8 % (32.0-36.0); MEAN PLATELET VOLUME 7.8 FL (7.0-11.0); MONO % 9.4 % (0.0-8.0); MONOCYTE # 0.6 TH/MM3 (0-0.9); NEUT % 51.6 % (16.0-70.0); PLATELET COUNT 190 TH/MM3 (150-450); RED BLOOD COUNT 3.07 MIL/MM3 (4.50-5.90); RED CELL DISTRIBUTION WIDTH 15.6 % (11.6-17.2); WHITE BLOOD COUNT 6.8 TH/MM3 (4.0-11.0)
[2017-08-05 05:04] LABS: ALBUMIN 2.8 GM/DL (3.4-5.0); AST (GOT) 9 U/L (15-37); BICARBONATE 24.7 MEQ/L (21.0-32.0); BLOOD UREA NITROGEN 7 MG/DL (7-18); CALCIUM 8.6 MG/DL (8.5-10.1); CHLORIDE 105 MEQ/L (98-107); CREATININE 0.86 MG/DL (0.60-1.30); GLOMERULAR FILTRATION RATE 89 ML/MIN (>89); GLUCOSE,RANDOM 93 MG/DL (74-106); MAGNESIUM 1.8 MG/DL (1.5-2.5); SODIUM (NA) 138 MEQ/L (136-145)
[2017-08-05 05:09] LABS: ALKALINE PHOSPHATASE 60 U/L (45-117); ALT (GPT) 21 U/L (12-78); PHOSPHORUS 2.4 MG/DL (2.5-4.9); TOTAL BILIRUBIN ADULT 0.7 MG/DL (0.2-1.0); TOTAL PROTEIN 6.6 GM/DL (6.4-8.2)
[2017-08-05] MEDS: VANCOMYCIN INJ 1,300 MG in SODIUM CHLORID 0.9% 500 ML INJ 500 ML IV SCH (06:44)
[2017-08-05] MEDS: HYDROmorphone HCL 2 MG TAB PO PRN (06:45)
[2017-08-05] MEDS: SODIUM CHLORIDE 0.9% FLUSH 10 ML FLUSH IV FLUSH SCH (08:33)
[2017-08-05] MEDS: FAMOTIDINE 20 MG/2 ML VIAL IV PUSH SCH (08:33)
[2017-08-05] MEDS: FLUTICASONE PROPIONATE 50 MCG/ACT 16 GM NASAL SPRAY EACH NARE SCH (08:33)
[2017-08-05] MEDS: GABAPENTIN 300 MG CAP PO SCH (08:34)
[2017-08-05] MEDS: PANTOPRAZOLE SOD 40 MG DELAYED RELEASE TAB PO SCH (08:34)
--- NOTE | 2017-08-05 10:13 | HHI.CCPN ---
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 Hunter, now presents here for evaluation of posterior neck pain at the surgical site swelling, fever , and pain behind his eyes. Symptoms started 2 days ago and have progressively worsened. Pain is 10 out of 10, constant, worse with movement and palpation. Pain in his posterior neck is described as pressure, and pain behind his eyes is described as sharp. No visual changes. No paresthesias or motor deficits. He has had a fever at home with temperatures ranging between 99 and 102F. Subjective: 08/05: No acute events overnight, resolution of headache. Cultures preliminarily negative to date. Plan after discussion with neurosurgeon, Dr. Hunter to discharge home today. To schedule tentatively, EXTRACTOR LOADER AND UNLOADER shunt for hydrocephalus on Friday. Objective Vital Signs Date Time Temp Pulse Resp B/P (MAP) Pulse Ox O2 Delivery O2 Flow Rate FiO2 08/05/17 08:00 98.2 62 22 155/90 (111) 97 08/05/17 07:23 21 08/05/17 07:00 Room Air Intake and Output 08/05/17 08/05/17 08/06/17 08:00 16:00 00:00 Intake Total 946 ml Output Total 900 ml Balance 46 ml Result Diagram: 08/05/17 0347 08/05/17 0347 Imaging Last Impressions Needle Aspiration CT 08/04/17 0000 Signed Impressions: Service Date/Time: Friday, August 04, 2017 16:06 - CONCLUSION: Uncomplicated CT-guided posterior neck fluid collection aspiration as above. Sean Gary MD Cervical Spine MRI 08/03/17 0000 Signed Impressions: Service Date/Time: Thursday, August 03, 2017 19:13 - CONCLUSION: 1. Postsurgical changes from occipital suboccipital craniotomy. 2. Subcutaneous fluid collection adjacent to the posterior fossa has enhancement in the wall and there is also evidence of a sinus tract through the skin in the midline low occipital region. Possible connection between the subcutaneous and intrathecal fluid collections. The wall enhancement in the subcutaneous component suggests this may be a developing abscess. Kendrick Hoyos MD Brain MRI 08/03/17 0000 Signed Impressions: Service Date/Time: Thursday, August 03, 2017 19:13 - CONCLUSION: There is a small sinus tract through the skin which connects to a subcutaneous fluid collection. The subcutaneous fluid collection appears to connect to the surgical cavity in the posterior fossa. This suggests potential connection from the skin into the posterior fossa. Kendrick Hoyos MD Objective Remarks GENERAL: Well-developed, well-nourished, awake, alert, no apparent distress. SKIN: Focused skin assessment warm/dry. Posterior neck/occipital scalp with midline vertical surgical scar that is well-healed with surrounding warmth and erythema with underlying fluctuance and induration. This area was evaluated using a bedside ultrasound linear probe in shows a circular fluid collection approximately 1.5 cm x 1.5 cm. HEAD: Atraumatic. Normocephalic. EYES: Pupils equal and round. No scleral icterus. No injection or drainage. ENT: No nasal bleeding or discharge. Mucous membranes pink and moist. NECK: Trachea midline. No JVD. Skin exam as above. No nuchal rigidity. CARDIOVASCULAR: Regular rate and rhythm. RESPIRATORY: No accessory muscle use. Clear to auscultation. Breath sounds equal bilaterally. GASTROINTESTINAL: Abdomen soft, non-tender, nondistended. MUSCULOSKELETAL: No obvious deformities. No clubbing. No cyanosis. No edema. NEUROLOGICAL: Awake and alert. No obvious cranial nerve deficits. Motor grossly within normal limits. Normal speech. PSYCHIATRIC: Appropriate mood and affect; insight and judgment normal. A/P Assessment and Plan Wound edema/hygroma - Status post Stereotactic image guided suboccipital craniectomy, - C1 laminectomy, - Microsurgical resection of fourth ventricular ependymoma - IR consult for CT-guided drainage today - Broad-spectrum antibiotics , vancomycin, Flagyl, aztreonam - De-escalate per culture and sensitivity - Further per neurosurgery- plan for EXTRACTOR LOADER AND UNLOADER shunt Friday if final cultures remain negative Hypertension - Hold home antihypertensive meds in settings of infection and possible sepsis - Resume when hemodynamically stable - Continue to hold Neuropathy - Gabapentin GERD - Pantoprazole - DC Pepcid DVT GI prophylaxis - Teds SCDs - Pharmacological DVT prophylaxis per neurosurgery - Pantoprazole Level 2 Dispo: Discussed with Dr. Hunter. Presumptive diagnosis per neurosurgery, sterile hydrocephalus. CSF most following path of least resistance, plan for shunt after ensuring cultures finalized as negative on Wednesday 08/08. Physician April Wellington MD Aug 05, 2017 10:13
--- NOTE | 2017-08-05 10:21 | HHI.DS ---
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 Hunter, now presents here for evaluation of posterior neck pain at the surgical site swelling, fever , and pain behind his eyes. Symptoms started 2 days ago and have progressively worsened. Pain is 10 out of 10, constant, worse with movement and palpation. Pain in his posterior neck is described as pressure, and pain behind his eyes is described as sharp. No visual changes. No paresthesias or motor deficits. He has had a fever at home with temperatures ranging between 99 and 102F. CBC/BMP: 08/05/17 0347 08/05/17 0347 Significant Findings Laboratory Tests Test 08/03/17 17:50 08/03/17 23:30 08/04/17 00:44 08/04/17 02:00 White Blood Count 12.2 TH/MM3 (4.0-11.0) Red Blood Count 3.76 MIL/MM3 (4.50-5.90) Hemoglobin 11.0 GM/DL (13.0-17.0) Hematocrit 33.3 % (39.0-51.0) Monocytes (%) (Auto) 9.0 % (0.0-8.0) Monocytes # (Auto) 1.1 TH/MM3 (0-0.9) Activated Partial Thromboplast Time 22.7 SEC (24.3-30.1) Sodium Level 135 MEQ/L (136-145) Estimat Glomerular Filtration Rate 84 ML/MIN (>89) Urine Mucus FEW /lpf (OCC) Test 08/04/17 03:55 08/05/17 03:47 Red Blood Count 3.13 MIL/MM3 (4.50-5.90) 3.07 MIL/MM3 (4.50-5.90) Hemoglobin 9.5 GM/DL (13.0-17.0) 9.4 GM/DL (13.0-17.0) Hematocrit 28.9 % (39.0-51.0) 27.9 % (39.0-51.0) Monocytes (%) (Auto) 11.2 % (0.0-8.0) 9.4 % (0.0-8.0) Monocytes # (Auto) 1.0 TH/MM3 (0-0.9) Albumin 2.8 GM/DL (3.4-5.0) 2.8 GM/DL (3.4-5.0) Calcium Level 7.9 MG/DL (8.5-10.1) Phosphorus Level 2.3 MG/DL (2.5-4.9) 2.4 MG/DL (2.5-4.9) Estimat Glomerular Filtration Rate 88 ML/MIN (>89) Aspartate Amino Transf (AST/SGOT) 9 U/L (15-37) Imaging Last Impressions Needle Aspiration CT 08/04/17 0000 Signed Impressions: Service Date/Time: Friday, August 04, 2017 16:06 - CONCLUSION: Uncomplicated CT-guided posterior neck fluid collection aspiration as above. Sean Gary MD Cervical Spine MRI 08/03/17 0000 Signed Impressions: Service Date/Time: Thursday, August 03, 2017 19:13 - CONCLUSION: 1. Postsurgical changes from occipital suboccipital craniotomy. 2. Subcutaneous fluid collection adjacent to the posterior fossa has enhancement in the wall and there is also evidence of a sinus tract through the skin in the midline low occipital region. Possible connection between the subcutaneous and intrathecal fluid collections. The wall enhancement in the subcutaneous component suggests this may be a developing abscess. Kendrick Hoyos MD Brain MRI 08/03/17 Signed Impressions: Service Date/Time: Thursday, August 03, 2017 19:13 - CONCLUSION: There is a small sinus tract through the skin which connects to a subcutaneous fluid collection. The subcutaneous fluid collection appears to connect to the surgical cavity in the posterior fossa. This suggests potential connection from the skin into the posterior fossa. Kendrick Hoyos MD PE at Discharge GENERAL: Well-developed well-nourished obese male in no apparent distress SKIN: Warm and dry. HEAD: Atraumatic. Normocephalic. EYES: Pupils equal and round. No scleral icterus. No injection or drainage. ENT: No nasal bleeding or discharge. Mucous membranes pink and moist. NECK: Trachea midline. No JVD. CARDIOVASCULAR: Normal rate, regular rhythm. RESPIRATORY: No accessory muscle use. Clear to auscultation. Breath sounds equal bilaterally. GASTROINTESTINAL: Abdomen soft, non-tender, nondistended. No guarding. MUSCULOSKELETAL: Extremities without clubbing, cyanosis, or edema. No obvious deformities. NEUROLOGICAL: Awake and alert. RASS 0. No gross focal/sensory deficits. Follows commands in all 4 extremities. 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 Hunter, now presents here for evaluation of posterior neck pain at the surgical site swelling, fever , and pain behind his eyes. Symptoms started 2 days ago and have progressively worsened. Pain is 10 out of 10, constant, worse with movement and palpation. Pain in his posterior neck is described as pressure, and pain behind his eyes is described as sharp. No visual changes. No paresthesias or motor deficits. He has had a fever at home with temperatures ranging between 99 and 102F. Subjective: 08/05: No acute events overnight, resolution of headache. Cultures preliminarily negative to date. Plan after discussion with neurosurgeon, Dr. Hunter to discharge home today. To schedule tentatively, SURVEYOR HYDROGRAPHIC shunt for hydrocephalus on Friday. Plan for discharge this a.m. Pt Condition on Discharge: Good Discharge Disposition: Discharge Home Discharge Instructions DIET: Follow Instructions for: Heart Healthy Diet Activities you can perform: Weight Bearing as Jayce Activities to Avoid: Driving Continued Medications: Amlodipine (Amlodipine) 2.5 Mg Tab 2.5 MG PO BID for Blood Pressure Management, #30 TAB 0 Refills Fluticasone Nasal Lyon (Fluticasone Nasal Lyon) 50 Mcg/Act Naspr 50 MCG EACH NARE BID for Allergy Management, #1 BOTTLE 0 Refills 50 mcg/spray Lisinopril (Lisinopril) 40 Mg Tab 40 MG PO BID for Blood Pressure Management, #30 TAB 0 Refills Nebivolol (Bystolic) 10 Mg Tab 10 MG PO HS for Blood Pressure Management, #30 TAB 0 Refills Pantoprazole (Protonix) 40 Mg Tab 40 MG PO DAILY for Ulcer Prevention, #30 TAB 0 Refills Spironolactone (Spironolactone) 25 Mg Tab 25 MG PO DAILY, #30 TAB 0 Refills Walker with Front Wheels (Walker with Front Wheels) 1 Mis Mis EA .ROUTE DIRECTED, #1 0 Refills Discontinued Medications: Hydromorphone (Dilaudid) 2 Mg Tab 2 MG PO Q6H PRN for Pain Management, #12 TAB 0 Refills Additional Information Call Dr. Hunter office upon discharge. RN to provide office number. Follow-up with neurosurgeon Dr. Hunter for scheduling of SURVEYOR HYDROGRAPHIC shunt placement for Tuesday, August 08, 2017 April Cuenca MD Aug 05, 2017 10:21
[2017-08-05] MEDS ORDERED: POTASSIUM PHOSPHATE/SODIUM PHOSPHATE 250 MG TAB PO ONE (11:00)
--- NOTE | 2017-08-05 14:39 | HHI.NSPN ---
Note Status Status: Progress Note Interval History Interval History Mr. Samaniego is a 67 year old male who underwent a suboccipital craniectomy for resection of fourth ventricle mass. He was doing well previously, his surgical wound healing well. He noted Friday swelling over his surgical site and drainage. He also developed fevers thus he presented to ED for evaluation. He is feeling better this morning, he states the swelling has reduced. He does have moderate discomfort to his posterior cervical region. 08/05: he feels well, denies intractable headaches. he requests to go home today. Labs, Micro, & Vital Signs Results Date Time Temp Pulse Resp B/P (MAP) Pulse Ox O2 Delivery O2 Flow Rate FiO2 08/05/17 10:00 60 08/05/17 08:00 98.2 62 22 155/90 (111) 97 08/05/17 08:00 61 08/05/17 07:23 96 21 08/05/17 07:00 97 Room Air 08/05/17 06:00 56 08/05/17 04:00 60 08/05/17 04:00 98.6 60 20 142/78 (99) 93 08/05/17 02:00 56 08/05/17 00:00 98.8 64 25 127/65 (85) 93 08/05/17 00:00 64 08/04/17 22:02 95 21 08/04/17 22:00 68 08/04/17 20:00 74 08/04/17 20:00 98.6 74 28 154/81 (105) 95 08/04/17 19:00 97 Room Air 08/04/17 18:00 66 08/04/17 17:02 98.4 62 20 158/89 (112) 96 08/06/17 07:00 Intake Total 613 ml Balance 613 ml Constitutional Vital Signs Date Time Temp Pulse Resp B/P (MAP) Pulse Ox O2 Delivery O2 Flow Rate FiO2 08/05/17 10:00 60 08/05/17 08:00 98.2 62 22 155/90 (111) 97 08/05/17 08:00 61 08/05/17 07:23 96 21 08/05/17 07:00 97 Room Air 08/05/17 06:00 56 08/05/17 04:00 60 08/05/17 04:00 98.6 60 20 142/78 (99) 93 08/05/17 02:00 56 08/05/17 00:00 98.8 64 25 127/65 (85) 93 08/05/17 00:00 64 08/04/17 22:02 95 21 08/04/17 22:00 68 08/04/17 20:00 74 08/04/17 20:00 98.6 74 28 154/81 (105) 95 08/04/17 19:00 97 Room Air 08/04/17 18:00 66 08/04/17 17:02 98.4 62 20 158/89 (112) 96 08/06/17 07:00 Intake Total 613 ml Balance 613 ml Physical Exam swelling suboccipital and upper posterior cervical region. His incision appears closed, there is mild redness surrounding the incision but appears more normal scarring. There is some tenderness to palpation over the site. No drainage currently seen. CN: pupils equal, facial motor symmetric Motor: moves all four extremities well and symmetrically Cerebellar: intact finger to nose Medical Decision Making MDM Remarks 67 y/o male presents with fever, incision pain and drainage, so far negative wound cultures MRI Brain, C-spine shows fluid collection within the surgical bed-pt developing hydrocephalus Plan Plan Remarks Dr. Elsa villalpando patient, he may require SCALLOPER shunt placement, pt requesting possible discharge today due to appointment with colorectal surgeon for possible CA tomorrow, Dr. Hunter cleared pt for discharge, will schedule SCALLOPER shunt for Friday, Dr. Elsa villalpando wellness manager follow up cultures Claudia Camacho Aug 05, 2017 14:39
--- NOTE | 2017-08-05 14:39 | HHI.NSPN ---
Note Status Status: Progress Note Interval History Interval History Mr. Samaniego is a 67 year old male who underwent a suboccipital craniectomy for resection of fourth ventricle mass. He was doing well previously, his surgical wound healing well. He noted Friday swelling over his surgical site and drainage. He also developed fevers thus he presented to ED for evaluation. He is feeling better this morning, he states the swelling has reduced. He does have moderate discomfort to his posterior cervical region. 08/05: he feels well, denies intractable headaches. he requests to go home today. Labs, Micro, & Vital Signs Results Date Time Temp Pulse Resp B/P (MAP) Pulse Ox O2 Delivery O2 Flow Rate FiO2 08/05/17 10:00 60 08/05/17 08:00 98.2 62 22 155/90 (111) 97 08/05/17 08:00 61 08/05/17 07:23 96 21 08/05/17 07:00 97 Room Air 08/05/17 06:00 56 08/05/17 04:00 60 08/05/17 04:00 98.6 60 20 142/78 (99) 93 08/05/17 02:00 56 08/05/17 00:00 98.8 64 25 127/65 (85) 93 08/05/17 00:00 64 08/04/17 22:02 95 21 08/04/17 22:00 68 08/04/17 20:00 74 08/04/17 20:00 98.6 74 28 154/81 (105) 95 08/04/17 19:00 97 Room Air 08/04/17 18:00 66 08/04/17 17:02 98.4 62 20 158/89 (112) 96 08/06/17 07:00 Intake Total 613 ml Balance 613 ml Constitutional Vital Signs Date Time Temp Pulse Resp B/P (MAP) Pulse Ox O2 Delivery O2 Flow Rate FiO2 08/05/17 10:00 60 08/05/17 08:00 98.2 62 22 155/90 (111) 97 08/05/17 08:00 61 08/05/17 07:23 96 21 08/05/17 07:00 97 Room Air 08/05/17 06:00 56 08/05/17 04:00 60 08/05/17 04:00 98.6 60 20 142/78 (99) 93 08/05/17 02:00 56 08/05/17 00:00 98.8 64 25 127/65 (85) 93 08/05/17 00:00 64 08/04/17 22:02 95 21 08/04/17 22:00 68 08/04/17 20:00 74 08/04/17 20:00 98.6 74 28 154/81 (105) 95 08/04/17 19:00 97 Room Air 08/04/17 18:00 66 08/04/17 17:02 98.4 62 20 158/89 (112) 96 08/06/17 07:00 Intake Total 613 ml Balance 613 ml Physical Exam swelling suboccipital and upper posterior cervical region. His incision appears closed, there is mild redness surrounding the incision but appears more normal scarring. There is some tenderness to palpation over the site. No drainage currently seen. CN: pupils equal, facial motor symmetric Motor: moves all four extremities well and symmetrically Cerebellar: intact finger to nose Medical Decision Making MDM Remarks 67 y/o male presents with fever, incision pain and drainage, so far negative wound cultures MRI Brain, C-spine shows fluid collection within the surgical bed-pt developing hydrocephalus Plan Plan Remarks Dr. Elsa villalpando patient, he may require COLLAR BASTER shunt placement, pt requesting possible discharge today due to appointment with colorectal surgeon for possible CA tomorrow, Dr. Hunter cleared pt for discharge, will schedule COLLAR BASTER shunt for Friday, Dr. Elsa villalpando mule developer follow up cultures Claudia Camacho Aug 05, 2017 14:39
--- NOTE | 2017-08-05 14:39 | HHI.NSPN ---
Note Status Status: Progress Note Interval History Interval History Mr. Samaniego is a 67 year old male who underwent a suboccipital craniectomy for resection of fourth ventricle mass. He was doing well previously, his surgical wound healing well. He noted Friday swelling over his surgical site and drainage. He also developed fevers thus he presented to ED for evaluation. He is feeling better this morning, he states the swelling has reduced. He does have moderate discomfort to his posterior cervical region. 08/05: he feels well, denies intractable headaches. he requests to go home today. Labs, Micro, & Vital Signs Results Date Time Temp Pulse Resp B/P (MAP) Pulse Ox O2 Delivery O2 Flow Rate FiO2 08/05/17 10:00 60 08/05/17 08:00 98.2 62 22 155/90 (111) 97 08/05/17 08:00 61 08/05/17 07:23 96 21 08/05/17 07:00 97 Room Air 08/05/17 06:00 56 08/05/17 04:00 60 08/05/17 04:00 98.6 60 20 142/78 (99) 93 08/05/17 02:00 56 08/05/17 00:00 98.8 64 25 127/65 (85) 93 08/05/17 00:00 64 08/04/17 22:02 95 21 08/04/17 22:00 68 08/04/17 20:00 74 08/04/17 20:00 98.6 74 28 154/81 (105) 95 08/04/17 19:00 97 Room Air 08/04/17 18:00 66 08/04/17 17:02 98.4 62 20 158/89 (112) 96 08/06/17 07:00 Intake Total 613 ml Balance 613 ml Constitutional Vital Signs Date Time Temp Pulse Resp B/P (MAP) Pulse Ox O2 Delivery O2 Flow Rate FiO2 08/05/17 10:00 60 08/05/17 08:00 98.2 62 22 155/90 (111) 97 08/05/17 08:00 61 08/05/17 07:23 96 21 08/05/17 07:00 97 Room Air 08/05/17 06:00 56 08/05/17 04:00 60 08/05/17 04:00 98.6 60 20 142/78 (99) 93 08/05/17 02:00 56 08/05/17 00:00 98.8 64 25 127/65 (85) 93 08/05/17 00:00 64 08/04/17 22:02 95 21 08/04/17 22:00 68 08/04/17 20:00 74 08/04/17 20:00 98.6 74 28 154/81 (105) 95 08/04/17 19:00 97 Room Air 08/04/17 18:00 66 08/04/17 17:02 98.4 62 20 158/89 (112) 96 08/06/17 07:00 Intake Total 613 ml Balance 613 ml Physical Exam swelling suboccipital and upper posterior cervical region. His incision appears closed, there is mild redness surrounding the incision but appears more normal scarring. There is some tenderness to palpation over the site. No drainage currently seen. CN: pupils equal, facial motor symmetric Motor: moves all four extremities well and symmetrically Cerebellar: intact finger to nose Medical Decision Making MDM Remarks 67 y/o male presents with fever, incision pain and drainage, so far negative wound cultures MRI Brain, C-spine shows fluid collection within the surgical bed-pt developing hydrocephalus Plan Plan Remarks Dr. Elsa villalpando patient, he may require TUB WASH OPERATOR shunt placement, pt requesting possible discharge today due to appointment with colorectal surgeon for possible CA tomorrow, Dr. Hunter cleared pt for discharge, will schedule TUB WASH OPERATOR shunt for Friday, Dr. Elsa villalpando automat car attendant follow up cultures Claudia Camacho Aug 05, 2017 14:39
[2017-08-05] MEDS ORDERED: PHARMACY ORDERED LAB ONE (17:45)
== END 2017-08-05 11:12 | disposition home or self-care (01) | DRG 57 ==
LOC: PHED 17:10 → PHEDA 21:26 → N03B 23:32
PROVIDERS: ADMIT Internal Medicine Critical Care Medicine; ATTEND Internal Medicine Critical Care Medicine
PROC: 0J943ZX Drainage of Right Neck Subcutaneous Tissue and Fascia, Percutaneous Approach, Diagnostic (ICD-10-PCS; principal; 2017-08-04)
DX: G91.8 Other hydrocephalus (principal); G93.89 Other specified disorders of brain; G62.9 Polyneuropathy, unspecified; I10 Essential (primary) hypertension; K21.9 Gastro-esophageal reflux disease without esophagitis; G47.30 Sleep apnea, unspecified; Z85.46 Personal history of malignant neoplasm of prostate; Z85.841 Personal history of malignant neoplasm of brain; Z88.0 Allergy status to penicillin; Z88.1 Allergy status to other antibiotic agents; Z88.2 Allergy status to sulfonamides; Z88.5 Allergy status to narcotic agent
CPT/HCPCS: 70553; 72156; 77012; 80053; 81001; 83605; 83735; 84100; 85025; 85610; 85730; 87040; 87070; 87205; 87641; 96365; 96375; J1170; A9579; J1644; J3370; J7030; J7040; J7050

== ENCOUNTER 2017-08-08 08:30 | Inpatient (IN) | payer MEDICARE, OTHER ==
[~2017-08-08] VITALS: Ht 175.3 cm; Wt 88.0 kg
[~2017-08-08 08:30] MED LIST changes: -DEXA0.5T PO; -DILA2TAB2 PO
[2017-08-08] MEDS ORDERED: SODIUM CHLORID 0.9% 500 ML IV PRN ×2 (14:00)
[2017-08-08] MEDS ORDERED: SODIUM CHLOR 0.9% 1000 ML INJ 1,000 ML IV SCH ×2 (14:00)
[2017-08-08] MEDS ORDERED: METOPROLOL TARTRATE 25 MG TAB PO PRN ×2 (14:00)
[2017-08-08] MEDS ORDERED: LACTATED RINGER'S 1000 ML IV PRN ×2 (14:00)
[2017-08-08] MEDS ORDERED: CHLORHEXIDINE GLUCONATE 2 % 1 PACK (2 CLOTHS) TOPICAL PRN ×2 (14:00)
[2017-08-08] MEDS ORDERED: POVIDONE IODINE 5% (ANTISEPSIS KIT) 4 APPLICATIONS EACH NARE PRN ×2 (14:00)
[2017-08-08] MEDS ORDERED: INSULIN HUMAN REGULAR 1,000 UNITS/10 ML VIAL SQ PRN ×2 (14:00)
[2017-08-08] MEDS ORDERED: VANCOMYCIN HCL 1000 MG ON-CALL/NS 250 ML IV SCH ×4 (14:00)
[2017-08-08] MEDS ORDERED: THROMBIN (TOPICAL) 5,000 UNIT VIAL ONE ×2 (14:14)
[2017-08-08] MEDS ORDERED: GELFOAM SIZE 100 ONE ×2 (14:14)
[2017-08-08] MEDS ORDERED: ceFAZolin 2 GM PREMIX 50 ML ONE ×2 (14:14)
[2017-08-08] MEDS ORDERED: GENTAMICIN SULFATE 80 MG/2 ML VIAL ONE ×2 (14:14)
[2017-08-08] MEDS ORDERED: LIDOCAINE 1%/EPINEPHrine 1:100,000 SOLN 20 ML VIAL ONE ×2 (14:14)
[2017-08-08] MEDS ORDERED: DEXAMETHASONE SOD PHOS 4 MG/ML VIAL ONE ×2 (15:02)
[2017-08-08] MEDS ORDERED: SUGAMMADEX SODIUM 200 MG/2 ML VIAL IV PUSH ONE ×2 (15:58)
[2017-08-08] MEDS ORDERED: ACETAMINOPHEN 325 MG TAB PO PRN ×2 (16:45)
[2017-08-08] MEDS ORDERED: SODIUM CHLORIDE 0.9% FLUSH 5 ML FLUSH IVF PRN ×2 (16:45)
[2017-08-08] MEDS ORDERED: MORPHINE SULFATE 4 MG/ML INJ IV PUSH PRN ×4 (16:45)
[2017-08-08] MEDS ORDERED: ACETAMINOPHEN/HYDROcodone 325 MG/10 MG TAB PO PRN ×4 (16:45)
[2017-08-08] MEDS ORDERED: DO NOT ADM ANY ANTICOAGULANT DRUGS PRN ×2 (17:12)
[2017-08-08] MEDS: NS + KCL 20 MEQ INJ 1,000 ML IV SCH ×2 (18:00)
[2017-08-08] MEDS ORDERED: PILL SPLITTER OTHER PRN ×2 (18:15)
[2017-08-08 18:20] LABS: TOTAL PROTEIN,CSF 50.9 MG/DL (15.0-45.0)
[2017-08-08 18:58] VITALS: BP 130/75; PULSE 51; RESP 18; TEMP 98; O2SAT 94
[2017-08-08 19:11] LABS: CSF LYMPHOCYTES 58 %; CSF NEUTROPHILS 42 %; RBC TUBE #1 14 /MM3; SUPERNATE COLOR TUBE #1 CLEAR (CLEAR); WBC TUBE #1 31 /MM3 (0-10)
[2017-08-08] MEDS ORDERED: NEBIVOLOL 10 MG TAB PO SCH ×2 (21:00)
[2017-08-08] MEDS: SODIUM CHLORIDE 0.9% FLUSH 5 ML FLUSH IVF SCH ×2 (21:00)
[2017-08-08] MEDS ORDERED: HYDROmorphone HCL PF 2 MG/ML VIAL IV PUSH PRN ×2 (22:00)
--- NOTE | 2017-08-08 22:22 | PD.OP ---
Operative Report Date of Surgery: Aug 08, 2017 Preoperative Diagnosis: External hydrocephalus and pseudomeningocele Postoperative Diagnosis: External hydrocephalus and pseudomeningocele Procedure: Placement of ventriculoperitoneal shunt. Drainage of pseudomeningocele Anesthesia: general Surgeon: Steven Hunter Geriatric Psychiatrist(s): Jaiime Reyes Operation and Findings: INTRAOPERATIVE FINDINGS: Clear cerebrospinal fluid with an opening pressure of 200 mm of water. 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 He had chronic communicating hydrocephalus and his condition was getting progressively worse. The [id number] details of the procedure, its indications, alternatives, risks , and potential complications of the surgery were fully discussed with the patient and his family. They fully understood. All their questions were answered. No guarantees were given. They voiced requesting the surgery and signed informed consent.They were offered the alternative of continuing nonsurgical treatment. DETAILS OF THE SURGICAL PROCEDURE: After the induction of general anesthesia, endotracheal intubation was performed. A Flores catheter, bilateral ANA M hose and sequential compression devices were placed and kept throughout the procedure. The patient was positioned supine on a 30-80 table with the head over a gel doughnut. All pressure points were carefully padded with eggcrate mattress. The right frontotemporal parietal area was shaved prepped and draped in the usual sterile fashion, as well as the neck, chest and abdomen. A small incision was made in the patient's right upper quadrant with a #10 blade and the dissection was carried out through the subcutaneous tissue and Marilyn's fascia. The rectus sheath was carefully opened with Metzenbaum scissors and the rectus muscles were split along its fibers. The posterior rectus sheath was elevated and carefully opened. The peritoneum was elevated with mosquitoes and opened in the standard fashion. The peritoneal cavity was visualized and exposed. A pursestring suture was placed around the peritoneal opening. Using a tunneler a subcutaneous tunnel was created connecting the abdominal incision with the planned head incision. A small incision was made in the right frontal area and a self-retaining retractor was placed in the incision. An entry point for the catheter was selected 90 mm posterior to the supraorbital rim and 25 mm lateral to the midline. A Midas Puneet was used to create the tee hole. The dura was coagulated with the bipolar in a cruciform fashion. A peritoneal catheter was placed in the subcutaneous tunnel previously created and a pocket was created underneath the galea for placement of the valve. A Satomi programmable valve has calibrated at a pressure of 120 mmHg and flushed according to the environmental remediation engineer's instructions. The valve was secured to the proximal end of the peritoneal catheter using a 2-0 silk. Then, a ventricular catheter was advanced into the ventricular system. A good flow of cerebrospinal fluid was obtained.~ The catheter was connected to the valve and the connection secured with a 2-0 silk. Cerebrospinal fluid was noted to drip through the distal end of the peritoneal catheter. The peritoneal catheter was placed in the peritoneal cavity under direct visualization. The pursestring suture was carefully adjusted with special care not to strangulate the catheter. The rectus sheath was closed using interrupted 2-0 Vicryl suture. The Marilyn's fascia was approximated with 3-0 Vicryl, and the subcutaneous with 3-0 Vicryl. The skin was closed with running subcuticular 4-0 Vicryl in the abdomen. The skin incision was closed using interrupted 3-0 Vicryl for the galea and shira to the skin. The suboccipital region was clipped and prep, drapped in the usual fashion. Using a 22 spinal needle, fluid from the pseudomeningocele was aspirated and sent to the lab At the end of the procedure, the sponge, needle and instrument counts were all correct. The estimated blood was less than 50 cc. No blood transfusion was given. No intraoperative complications occurred. The patient received preoperative prophylactic antibiotics. The patient was then extubated and transferred to the recovery room in stable condition. Steven Hunter MD Aug 08, 2017 22:22
[2017-08-08] MEDS: traMADol HCL 50 MG TAB PO PRN ×2 (23:06)
[2017-08-08] MEDS: amLODIPine BESYLATE 5 MG TAB PO SCH ×2 (23:17)
[2017-08-08] MEDS: LISINOPRIL 20 MG TAB PO SCH ×2 (23:18)
[2017-08-08] MEDS: FLUTICASONE PROPIONATE 50 MCG/ACT 16 GM NASAL SPRAY EACH NARE SCH ×2 (23:18)
[2017-08-09] VITALS: BP 139/79; PULSE 51; RESP 18; TEMP 98.2; O2SAT 96
[2017-08-09] MEDS: ceFAZolin 2 GM PREMIX 50 ML IV SCH ×4 (00:08→09:00)
[2017-08-09] MEDS: HYDROmorphone HCL PF 1 MG/ML VIAL IV PUSH PRN ×4 (00:21→05:38)
[2017-08-09 04:00] VITALS: BP 144/70; PULSE 54; RESP 18; TEMP 97.3; O2SAT 96
[2017-08-09] MEDS: NS + KCL 20 MEQ INJ 1,000 ML IV SCH ×2 (04:00)
[2017-08-09] MEDS: traMADol HCL 50 MG TAB PO PRN ×2 (04:39)
[2017-08-09 08:00] VITALS: BP 124/65; PULSE 53; RESP 20; TEMP 97.2; O2SAT 93
[2017-08-09] MEDS: SODIUM CHLORIDE 0.9% FLUSH 5 ML FLUSH IVF SCH ×2 (09:00)
[2017-08-09] MEDS: LISINOPRIL 20 MG TAB PO SCH ×2 (09:00)
[2017-08-09] MEDS: amLODIPine BESYLATE 5 MG TAB PO SCH ×2 (09:00)
[2017-08-09] MEDS ORDERED: PANTOPRAZOLE SODIUM 40 MG VIAL IVP SCH ×2 (09:00)
[2017-08-09] MEDS ORDERED: PANTOPRAZOLE SOD 40 MG DELAYED RELEASE TAB PO SCH ×2 (09:00)
[2017-08-09] MEDS ORDERED: SPIRONOLACTONE 25 MG TAB PO SCH ×2 (09:00)
[2017-08-09] MEDS: FLUTICASONE PROPIONATE 50 MCG/ACT 16 GM NASAL SPRAY EACH NARE SCH ×2 (09:01)
--- NOTE | 2017-08-09 10:40 | RADRPT ---
EXAM DATE/TIME: 08/09/2017 10:16 [facility] COMPARISON: CT BRAIN W CONTRAST, June 18, 2017, 17:02. MRI BRAIN W & W/O CONTRAST, August 03, 2017, 19:[address] GUIDED ASPIRATION, August 04, 2017, 16:06. CT BRAIN W/O CONTRAST, June 26, 2017, 4:07. INDICATIONS : Cephalgia; post operative. RADIATION DOSE: 48.63 CTDIvol (mGy) MEDICAL HISTORY : Carcinoma, prostate. Hypertension. Carcinoma, brain. SURGICAL HISTORY : None. ENCOUNTER: Initial ACUITY: 1 day PAIN SCALE: 4/10 LOCATION: cranial TECHNIQUE: Multiple contiguous axial images were obtained of the head. Using automated exposure control and adj ustment of the mA and/or kV according to patient size, radiation dose was kept as low as reasonably a chievable to obtain optimal diagnostic quality images. DICOM format image data is available electro nically for review and comparison. FINDINGS: Stable postsurgical features of occipital craniotomy and resection of fourth ventricle mass. Continue d extension of fluid, now containing foci of air, from the foramen magnum to the subcutaneous soft ti ssues posteriorly. Interval resolution of intraventricular blood products. Stable right frontal antro stomy catheter in place. Ventricles are stable in size and midline. Slight increased pneumocephalus i n comparison to prior exam with air primarily noted in the right frontal region. No intercurrent intr a-axial hemorrhage. Basilar cisterns are maintained. Remainder of the exam is unchanged. CONCLUSION: 1. Postsurgical features of occipital craniotomy and fourth ventricle mass resection with continued e xtension of fluid, now containing foci of air, from the foramen magnum to the subcutaneous soft tissu es posteriorly. This fluid was recently aspirated. Presence of air in the collection may be due to re cent sampling and/or sinus tract to the skin but remains concerning for possible infection. 2. Minimally increased pneumocephalus in comparison to prior exam. Clinical correlation is recommende d. 3. Resolution of intraventricular blood products. No intercurrent hemorrhage. 1. Jacob Swartz MD on August 09, 2017 at 10:27 Board Certified Radiologist. This report was verified electronically.
--- NOTE | 2017-08-09 10:48 | HHI.DS ---
Discharge Summary Admission Date Aug 08, 2017 at 12:33 Discharge Date: Aug 09, 2017 Admitting Diagnosis s/p [employer]IST shunt placement (1) S/P ventriculoperitoneal shunt ICD Code: Z98.2 - Presence of cerebrospinal fluid drainage device Brief History Mr. 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 He had chronic communicating hydrocephalus and his condition was getting progressively worse. Significant Findings Laboratory Tests Test 08/08/17 16:38 CSF WBC (Tube 1) 31 /MM3 (0-10) CSF RBC (Tube 1) 14 /MM3 (NONE) CSF Total Protein 50.9 MG/DL (15.0-45.0) Imaging Last Impressions Head CT 08/09/17 0000 Signed Impressions: Service Date/Time: Friday, August 09, 2017 10:16 - CONCLUSION: 1. Postsurgical features of occipital craniotomy and fourth ventricle mass resection with continued extension of fluid, now containing foci of air, from the foramen magnum to the subcutaneous soft tissues posteriorly. This fluid was recently aspirated. Presence of air in the collection may be due to recent sampling and/or sinus tract to the skin but remains concerning for possible infection. 2. Minimally increased pneumocephalus in comparison to prior exam. Clinical correlation is recommended. 3. Resolution of intraventricular blood products. No intercurrent hemorrhage. 1. Jacob Swartz MD Hospital Course Mr. Samaniego underwent placement of ventriculoperitoneal shunt. Drainage of pseudomeningocele on Aug 08, 2017 for external hydrocephalus and pseudomeningocele. His surgery went well without complications. His postoperative CT Head was reviewed by Dr. Hunter and patient was discharged home in stable conditions. Wound care, activity, and signs and symptoms to watch for were discussed. Pt Condition on Discharge: Stable Discharge Disposition: Discharge Home Discharge Instructions DIET: Follow Instructions for: Heart Healthy Diet ACTIVITIES You can perform: Weight Bearing As Jayce ADDITIONAL Activity Instructio: Avoid strenuous activities, falls or head trauma. Use library media assistant or assistive devices as needed when ambulating to avoid falls. Follow up Referrals: Neurosurgery with Claudia Camacho New Medications: Tramadol (Ultram) 50 Mg Tab 50 MG PO Q8HR PRN for pain, #62 TAB Continued Medications: Amlodipine (Amlodipine) 2.5 Mg Tab 2.5 MG PO BID for Blood Pressure Management, #30 TAB 0 Refills Fluticasone Nasal [place] (Fluticasone Nasal [place]) 50 Mcg/Act Naspr 50 MCG EACH NARE BID for Allergy Management, #1 BOTTLE 0 Refills 50 mcg/spray Lisinopril (Lisinopril) 40 Mg Tab 40 MG PO BID for Blood Pressure Management, #30 TAB 0 Refills Nebivolol (Bystolic) 10 Mg Tab 10 MG PO HS for Blood Pressure Management, #30 TAB 0 Refills Pantoprazole (Protonix) 40 Mg Tab 40 MG PO DAILY for Ulcer Prevention, #30 TAB 0 Refills Spironolactone (Spironolactone) 25 Mg Tab 25 MG PO DAILY, #30 TAB 0 Refills Claudia Camacho Aug 09, 2017 10:48
--- NOTE | 2017-08-09 10:48 | HHI.DCPOC ---
Discharge Care Plan Diagnosis: (1) S/P ventriculoperitoneal shunt (2) Severe enlargement of fourth ventricle Goals to Promote Your Health * To prevent worsening of your condition and complications * To maintain your health at the optimal level Directions to Meet Your Goals Take your medications as prescribed Follow your dietary instruction Follow activity as directed Keep your appointments as scheduled Take your immunizations and boosters as scheduled If your symptoms worsen call your PCP, if no PCP go to Urgent Care Center or Emergency Room Smoking is Dangerous to Your Health. Avoid second hand smoke Call the 24-hour hour crisis hotline for domestic abuse at [facility]acho Aug 09, 2017 10:48
--- NOTE | 2017-08-09 10:48 | HHI.DCPOC ---
Discharge Care Plan Diagnosis: (1) S/P ventriculoperitoneal shunt (2) Severe enlargement of fourth ventricle Goals to Promote Your Health * To prevent worsening of your condition and complications * To maintain your health at the optimal level Directions to Meet Your Goals Take your medications as prescribed Follow your dietary instruction Follow activity as directed Keep your appointments as scheduled Take your immunizations and boosters as scheduled If your symptoms worsen call your PCP, if no PCP go to Urgent Care Center or Emergency Room Smoking is Dangerous to Your Health. Avoid second hand smoke Call the 24-hour hour crisis hotline for domestic abuse at [facility]acho Aug 09, 2017 10:48
--- NOTE | 2017-08-09 10:48 | HHI.DCPOC ---
Discharge Care Plan Diagnosis: (1) S/P ventriculoperitoneal shunt (2) Severe enlargement of fourth ventricle Goals to Promote Your Health * To prevent worsening of your condition and complications * To maintain your health at the optimal level Directions to Meet Your Goals Take your medications as prescribed Follow your dietary instruction Follow activity as directed Keep your appointments as scheduled Take your immunizations and boosters as scheduled If your symptoms worsen call your PCP, if no PCP go to Urgent Care Center or Emergency Room Smoking is Dangerous to Your Health. Avoid second hand smoke Call the 24-hour hour crisis hotline for domestic abuse at [facility]acho Aug 09, 2017 10:48
[2017-08-09] MEDS ORDERED: ULTR50TA5 PO ×2 (11:32)
== END 2017-08-09 12:07 | disposition home or self-care (01) | DRG 33 ==
LOC: HSDI 12:33 → EDSTATUS 14:00 → N05A 19:05
PROVIDERS: ADMIT Neurological Surgery; ATTEND Neurological Surgery
PROC: 0W9 Anatomical Regions, General, Drainage (ICD-10-PCS; 2017-08-08)
PROC: 00160J6 Bypass Cerebral Ventricle to Peritoneal Cavity with Synthetic Substitute, Open Approach (ICD-10-PCS; principal; 2017-08-08 14:00)
DX: G91.0 Communicating hydrocephalus (principal); G96.19 Other disorders of meninges, not elsewhere classified; I10 Essential (primary) hypertension; G47.30 Sleep apnea, unspecified; K21.9 Gastro-esophageal reflux disease without esophagitis; Z85.46 Personal history of malignant neoplasm of prostate
CPT/HCPCS: 70450; 82945; 84157; 87070; 87205; 89051; 94150; C9113; J0690; J1100; J1170; J1580; J3370; J3480; J7050; J7120